=== PATIENT | male | born 1945 | race Caucasian/White ===

== ENCOUNTER 2019-01-11 11:35 | Day surgery (SDC) | payer MEDICARE, OTHER, SELFPAY ==
[2019-01-11 12:18] VITALS: BMI 25.1
[2019-01-11 12:43] VITALS: BP 135/73; PULSE 60; RESP 16; TEMP 36.6; O2SAT 98
[2019-01-11 12:50] VITALS: PULSE 63
[2019-01-11 13:57] VITALS: TEMP 36.6; O2SAT 98
--- NOTE | 2019-05-03 12:04 | HMH.LOOP ---
[facility] Loop Recorder Date: 01/11/19 Time: 10:00 Procedure Performed:: Implantation of loop recorder Indication:: Dizziness Bradycardia Technique:: Patient was brought to the cardiac Rn Maternity as an outpatient. After informed consent obtained, 1% lidocaine was used to anesthetize the area just left of the sternal border at the third and fourth costal space. Using the supplied scalpel, an incision was made and then using the preloaded apparatus, the loop recorder was implanted just beneath the skin. After the loop recorder was in place and adequate sensing noted, pressure dressing applied and the patient was discharged home. He tolerated procedure without complications. Impression:: Successful loop recorder implanted. Serial Number:: [id number] Plan:: Routine postop care
--- NOTE | 2019-05-03 12:09 | P.PCN_ITS ---
[facility] Loop Recorder Date: 01/11/19 Time: 10:00 Procedure Performed:: Implantation of loop recorder Indication:: Dizziness Bradycardia Technique:: Patient was brought to the cardiac Lead Generation Specialist as an outpatient. After informed consent obtained, 1% lidocaine was used to anesthetize the area just left of the sternal border at the third and fourth costal space. Using the supplied scalpel, an incision was made and then using the preloaded apparatus, the loop recorder was implanted just beneath the skin. After the loop recorder was in place and adequate sensing noted, pressure dressing applied and the patient was discharged home. He tolerated procedure without complications. Impression:: Successful loop recorder implanted. Serial Number:: [id number] Plan:: Routine postop care
== END 2019-01-11 14:01 | disposition home or self-care (01) ==
LOC: CATHLAB 11:37
PROVIDERS: PCP Dermatology; Visit Provider Internal Medicine
DX: R00.1 Bradycardia, unspecified (principal); R42 Dizziness and giddiness; R06.09 Other forms of dyspnea; I11.9 Hypertensive heart disease without heart failure; I25.10 Atherosclerotic heart disease of native coronary artery without angina pectoris; I65.23 Occlusion and stenosis of bilateral carotid arteries; G47.33 Obstructive sleep apnea (adult) (pediatric); E78.2 Mixed hyperlipidemia; N28.9 Disorder of kidney and ureter, unspecified; E03.9 Hypothyroidism, unspecified; Z88.8 Allergy status to other drugs, medicaments and biological substances; Z88.2 Allergy status to sulfonamides; Z79.82 Long term (current) use of aspirin; Z79.02 Long term (current) use of antithrombotics/antiplatelets; Z79.891 Long term (current) use of opiate analgesic; Z79.899 Other long term (current) drug therapy; Z86.711 Personal history of pulmonary embolism; Z96.643 Presence of artificial hip joint, bilateral; Z95.5 Presence of coronary angioplasty implant and graft
CPT/HCPCS: 33285

== ENCOUNTER → 2019-02-16 14:17 | Outpatient (CLI) | payer MEDICARE, OTHER, SELFPAY ==
--- NOTE | 2019-02-16 14:20 | US_ITS ---
US abd. aorta screening HISTORY: Screening for abdominal aortic aneurysm ITS.REASON: z ORDERING PHYSICIAN: Arturo Cain MD PATIENT AGE: 73 years Comparison: None FINDINGS: Plaque is present within the abdomen aorta. There is mild ectasia of the mid abdominal aorta at 2.8 cm. The proximal common iliacs are unremarkable. IMPRESSION: Mild dilatation of the mid abdominal aorta at 2.8 cm
== END ==
PROVIDERS: PCP Family Medicine; Visit Provider Internal Medicine
DX: Z82.49 Family history of ischemic heart disease and other diseases of the circulatory system (principal); Z13.6 Encounter for screening for cardiovascular disorders
CPT/HCPCS: 76705

== ENCOUNTER → 2020-07-04 09:22 | Outpatient (CLI) | payer MEDICARE, OTHER, SELFPAY ==
--- NOTE | 2020-07-04 09:22 | MR_ITS ---
PROCEDURE: MR ANGIO HEAD WO CON CLINICAL INDICATION: cva PT STATES HE BLACKS OUT SYMPTOMS X 2 MONTHS. NO OTHER SYMPTOMS. NOTHING PRIOR. > COMPARISON: No exams were available for comparison TECHNIQUE: Routine multiplanar multi echo sequences are performed without gadolinium enhancement. FINDINGS: The vertebral basilar system has an unremarkable appearance. There is a persistent area protrusion involving the suprasellar portion of the ICA bilaterally. This is best delineated on the MIP images [id number] and may only be due to infundibulum I from anterior meningeal branch or posterior communicating branch. However, despite multiple maneuvers and different imaging planes cannot completely confirm this. Cannot exclude the possibility of small ICA aneurysms. Suggest CT a for further evaluation. No other significant anomalies are evident. No evidence of AVM or major intracranial occlusive process. Single-shot MRV shows no evidence of sagittal sinus thrombosis. IMPRESSION: Infundibulum/overlapping vessels versus small ICA aneurysms both right and left aspect of the suprasellar portion of the ICA just before the bifurcation. Suggest CT angiogram for more thorough evaluation. Otherwise negative Dictated by: Jonatan Snyder MD 07/05/2020 14:27 Jonatan Snyder MD in [place] 07/05/2020 14:27
--- NOTE | 2020-07-04 09:22 | MR_ITS ---
PROCEDURE: MR HEAD/BRAIN WO CON CLINICAL INDICATION: cva PT STATES HE BLACKS OUT SYMPTOMS X 2 MONTHS. NO OTHER SYMPTOMS. NOTHING PRIOR. COMPARISON: No exams were available for comparison TECHNIQUE: Routine multiplanar multi echo sequences are performed without gadolinium enhancement. FINDINGS: No midline shift, mass effect, intracranial hemorrhage, or hydrocephalus is evident. There are few patch that T2 white matter hyperintensities.. There is mild diffuse cerebral atrophy which is most prominent in the frontal regions. The lateral ventricles are slightly prominent felt to be a ex vacuo in nature.. Atrophic changes are present involving the corpus callosum. The pituitary and optic chiasm and craniocervical junction are unremarkable. There is also mild vermian atrophy. The cerebellopontine angles have an unremarkable appearance. No mastoid effusion or sinus air-fluid level. IMPRESSION: 1. No acute intracranial findings. 2. Diffuse cerebral atrophy most prominent in the frontal regions. Mild vermian atrophy. Dictated by: Jonatan Snyder MD 07/05/2020 14:07 Jonatan Snyder MD in [facility] 07/05/2020 14:07
--- NOTE | 2020-07-04 09:22 | MR_ITS ---
PROCEDURE: MR ANGIO NECK WO CON CLINICAL INDICATION: cva PT STATES HE BLACKS OUT SYMPTOMS X 2 MONTHS. NO OTHER SYMPTOMS. NOTHING PRIOR. COMPARISON: No exams were available for comparison TECHNIQUE: The [id number] images with multi slab reformats without contrast FINDINGS: The cervical portion carotids have an unremarkable appearance. No significant stenosis, occlusion, or dissection is evident. The cervical portion of vertebrals also have an unremarkable appearance. The left vertebral is dominant. IMPRESSION: Unremarkable MRA of the neck Dictated by: Jonatan Snyder MD 07/05/2020 14:16 Jonatan Snyder MD in [place] 07/05/2020 14:16
--- NOTE | 2020-07-04 09:39 | XR_ITS ---
PROCEDURE: XR CHEST AP CLINICAL HISTORY: CHECK PLACEMENT OF LOOP RECORDER COMPARISON: No exams were available for comparison FINDINGS: There is mild cardiomegaly without failure. Coronary artery calcification and/or stent noted on the left. There is a loop recorder device present in the left parasternal region between the 4th and 5th rib anteriorly within satisfactory position according to manufactures recommendation for MRI. The lungs are clear without infiltrates, suspicious nodules, or pleural effusions. There are old fractures of the left 5th 6 7th and 8th ribs. IMPRESSION: Cardiomegaly with loop recorder device present as described above Dictated by: Jonatan Snyder MD 07/04/2020 10:02 Jonatan Snyder MD in [place] 07/04/2020 10:02
== END ==
PROVIDERS: PCP Family Medicine; Visit Provider Specialist
DX: F11.90 Opioid use, unspecified, uncomplicated (principal); G47.33 Obstructive sleep apnea (adult) (pediatric); I25.10 Atherosclerotic heart disease of native coronary artery without angina pectoris; I63.9 Cerebral infarction, unspecified; M45.9 Ankylosing spondylitis of unspecified sites in spine; N18.9 Chronic kidney disease, unspecified
CPT/HCPCS: 70544; 70547; 70551; 71045

== ENCOUNTER → 2020-07-11 13:07 | Outpatient (CLI) | payer MEDICARE, OTHER, SELFPAY ==
[2020-07-11 14:13] LABS: Chloride 103 mmol/L (98-107); Sodium 139 mmol/L (136-145)
[2020-07-11 14:16] LABS: Blood Urea Nitrogen 17 mg/dl (9-20); Carbon Dioxide 31 mmol/L (22.0-30.0); Estimated Glomerular Filt Rate 83 ml/min (>60); GFR (African American) 100 ML/MIN (>60)
[2020-07-11 14:17] LABS: Calcium 9.6 mg/dl (8.4-10.2); Cholesterol 131 mg/dl (140-200); Glucose 111 mg/dl (74-100); HDL Cholesterol 33 mg/dl (40-60); Triglycerides 205 mg/dl (30-150); VLDL Cholesterol 41 mg/dL (0-40)
[2020-07-11 14:27] LABS: Direct LDL Cholesterol 69.03 mg/dL (100-129)
[2020-07-11 18:29] LABS: Erythrocyte Sedimentation Rate 17 mm/hr (0-20)
[2020-07-11 19:11] LABS: Hemoglobin A1C 4.9 % (4.0-6.0)
== END ==
PROVIDERS: Visit Provider Specialist
DX: I63.9 Cerebral infarction, unspecified (principal); I65.23 Occlusion and stenosis of bilateral carotid arteries; Z79.899 Other long term (current) drug therapy
CPT/HCPCS: 36415; 80048; 80061; 83036; 85651

== ENCOUNTER → 2020-07-18 13:25 | Outpatient (CLI) | payer MEDICARE, OTHER, SELFPAY ==
--- NOTE | 2020-07-18 13:25 | CT_ITS ---
Procedure: CT ANGIO HEAD CLINICAL HISTORY: eval for aneurysm Abnormal MRA a CVA, blackout symptoms COMPARISON: MR MR ANGIO HEAD WO JALIL from 07/04/2020 TECHNIQUE: IV Contrast: 100ml Optiray 350 Axial images obtained with sagittal and coronal reformats. All CT scans at the facility use one or more dose reduction, viz: automated exposure control, ma/kV adjustment per patient size (including targeted exams where dose is matched to indication, i.e. head), or iterative reconstruction technique. FINDINGS: There are atheromatous changes involving the cavernous portion of the ICA on both sides. Calcific plaque is present within the cavernous portion of the ICAs. On the left there is a an area of high-grade stenosis secondary to calcific plaque involving the supraclinoid portion of the left ICA proximal to the ICA bifurcation by proximally 8 mm. This area of stenosis is approximately seventy.. There is an area of protrusion of the bifurcation of the left ICA which represents an infundibulum of the anterior meningeal artery. A small shallow aneurysm is present just proximal to the infundibulum of the anterior BG artery on the left and just distal to the stenosis. This may be atheromatous in nature.. There is also an infundibulum of the right anterior meningeal artery. No obvious aneurysm is evident on the right. There is a dominant left vertebral artery No evidence of AVM. No enhancing lesions are evident. No evidence of venous thrombosis. IMPRESSION: 1. High-grade intracranial artery stenosis on the left involving the supraclinoid portion of the left ICA of approximately 70 percent with poststenotic dilatation. 2. A small shallow aneurysm is present just distal to the area of stenosis and just proximal to the infundibulum of the anterior meningeal artery. This is approximately 1 mm by 1 mm. Dictated by: Jonatan Snyder MD 07/18/2020 14:58 Jonatan Snyder MD in [place] 07/18/2020 14:58
== END ==
PROVIDERS: PCP Family Medicine; Visit Provider Specialist
DX: E78.5 Hyperlipidemia, unspecified (principal); I11.9 Hypertensive heart disease without heart failure; I63.9 Cerebral infarction, unspecified; R40.4 Transient alteration of awareness; R90.89 Other abnormal findings on diagnostic imaging of central nervous system
CPT/HCPCS: 70496; Q9967

== ENCOUNTER 2020-09-19 11:50 | Day surgery (SDC) | payer MEDICARE, OTHER, SELFPAY ==
[2020-09-19 11:51] VITALS: BMI 25.0
[2020-09-19 11:53] VITALS: BP 164/88; PULSE 60; RESP 16; TEMP 36.8; O2SAT 95
[2020-09-19 12:43] VITALS: BP 149/77; PULSE 59; RESP 20; TEMP 36.6; O2SAT 95
--- NOTE | 2020-09-19 12:48 | HMH.PROC ---
[facility] Procedure Note Procedure Note:: Patient was brought to the cardiac Alum Plant Operator as an outpatient for removal of ILR at end of life. After informed consent was obtained, patient was prepped and draped in a sterile fashion. After the area was prepped and draped, lidocaine was used to anesthetize the area over the loop recorder and a scalpel was used to dissect down to the loop recorder. Using forceps, the recorder was removed without complications. Steri-Strips and pressure bandage was applied. Patient tolerated procedure without complications.
== END 2020-09-19 12:47 | disposition home or self-care (01) ==
LOC: CATHLAB 11:51
PROVIDERS: PCP Family Medicine; Visit Provider Internal Medicine
DX: Z45.09 Encounter for adjustment and management of other cardiac device (principal); R42 Dizziness and giddiness; I25.10 Atherosclerotic heart disease of native coronary artery without angina pectoris; Z79.899 Other long term (current) drug therapy
CPT/HCPCS: 33286

== ENCOUNTER → 2021-05-23 13:51 | Outpatient (CLI) | payer MEDICARE, OTHER, SELFPAY ==
[2021-05-23 14:30] LABS: Basophils # 0.1 K/mm3 (0-0.2); Basophils % 0.8 % (0.1-2.0); Eosinophils # 0.2 K/mm3 (0.0-0.4); Eosinophils % 1.8 % (0.1-12.0); Hematocrit 43.7 % (42.0-52.0); Hemoglobin 14.5 g/dL (14.1-18.0); Lymphocytes # 1.4 K/mm3 (0.7-4.5); Lymphocytes % 14.1 % (10-50); Mean Corpuscular HGB Conc 33.2 g/dL (31.8-35.4); Mean Corpuscular Volume 99.3 fl (80-94); Mean Platelet Volume 8.9 fl (7.4-10.4); Monocytes # 0.7 K/mm3 (0.1-1.0); Neutrophils # 7.7 K/mm3 (1.8-7.8); Neutrophils % 76.3 % (37.0-80.0); Platelet Count 332 K/mm3 (142-424); Red Cell Distribution Width 13.7 % (11.5-17.5); White Blood Count 10.1 K/mm3 (4.8-10.8)
[2021-05-23 15:29] LABS: Anion Gap 16.1 mEq/L (5-15); Blood Urea Nitrogen 16 mg/dl (9-20); Carbon Dioxide 29 mmol/L (22.0-30.0); Chloride 103 mmol/L (98-107); Estimated Glomerular Filt Rate 94 ml/min (>60); GFR (African American) 114 ML/MIN (>60); Glucose 97 mg/dl (74-100); Potassium 5.1 mmoL/L (3.5-5.1); Sodium 143 mmol/L (136-145)
== END ==
PROVIDERS: Visit Provider Internal Medicine
DX: E78.2 Mixed hyperlipidemia (principal); G47.33 Obstructive sleep apnea (adult) (pediatric); I11.9 Hypertensive heart disease without heart failure; I25.10 Atherosclerotic heart disease of native coronary artery without angina pectoris; I65.23 Occlusion and stenosis of bilateral carotid arteries; R00.1 Bradycardia, unspecified; Z20.822 Contact with and (suspected) exposure to COVID-19
CPT/HCPCS: 36415; 80048; 85025; U0003

== ENCOUNTER 2021-05-24 11:25 | Observation (INO) | payer MEDICARE, OTHER, SELFPAY ==
[2021-05-24] VITALS (22 sets, daily range): BP systolic 106–193; BP diastolic 59–101; PULSE 45–66; RESP 13–22; TEMP 36.4–36.8; O2SAT 96–100; BMI 23.9; BMI 24.0
--- NOTE | 2021-05-24 | IR_ITS ---
APPROVED REPORT Patient Location: Outpatient Beauty Therapist: ADAM Yo RT (R) PROCEDURES Left heart catheterization Left ventriculogram Selective coronary angiogram INDICATION Known coronary artery disease, Progressive angina pectoris Informed consent was obtained prior to the procedure. COMPLICATIONS None Estimated Blood Loss: Less than 10 mls TECHNIQUE One percent lidocaine used to anesthetize the right anterior aspect of the wrist. The right radial artery was accessed via the Seldinger technique. A 6 Polish sheath was placed in the right radial artery. 2.5 mg of verapamil, 800 mcg of nitroglycerin, 1mg Lidocaine and 5000 U Heparin were given through the arterial sheath. The trap catheter was also used to perform left heart catheterization, left ventriculogram and selective coronary angiogram. At the end of the procedure the sheath was removed good hemostasis was achieved using Traclet band, patient was transferred to the postop holding area in stable condition. ANGIOGRAPHIC RESULTS The left main artery Normal The left anterior descending artery Has stents in the proximal through mid segment which are widely patent free of in-stent restenosis with excellent proximal distal transitioning. The remaining LAD is widely patent. There is a moderate-sized first diagonal artery which has a stent in its ostial proximal segment which has ostial eccentric 80 to 90% stenosis The circumflex artery Nondominant with mild 10% luminal irregularities The right coronary artery Large and dominant has proximal 20% with a mid vessel concentric 40% stenosis followed by additional 20 and 30% distal stenoses. The BROWN ventriculogram reveals Preserved at 55% The left ventricular end-diastolic pressure Elevated at 25 mmHg IMPRESSION Patent LAD as described above Severe stenosis in the first diagonal artery which is unlikely to be producing angina Moderate disease in the right coronary as described above Preserved ejection fraction Elevated LVEDP Unusually large cardiac silhouette PLAN 1. Recommend echocardiogram to determine if pericardial effusion is present 2. Medical management for coronary disease 3. Treatment of diastolic dysfunction 4. At this point I am strongly in favor of medical management. I believe the elevated LVEDP is etiology for patient's symptoms Electronically signed by : Arturo Cian MD 05/24/2021 10:01:39
--- NOTE | 2021-05-24 10:06 | CA_ITS ---
APPROVED REPORT EXAM: Comprehensive 2D, Doppler, and color-flow Echocardiogram Business Integration Manager: Sissy Lua CRT Ht: 5 ft 10 in Wt: 167lbs BSA: 1.93 BP: 106/65 mmHg Indications: Hypertension, HLD, AFib, pacer, PE, CAD. Aneurysn, palp, cp, Pt post cath, check for pleural effusion due to unusually large cardiac silhouette Tricuspid Valve TR P. Velocity 227.00 cm/s RAP Estimate 10.00 mmHg RVSP 30.50 mmHg Left Ventricle Limited transthoracic echocardiogram was performed, left atrium is mildly enlarged, left ventricle is normal size, mild concentric left ventricular hypertrophy, visually estimated ejection fraction 55% with no obvious regional wall motion abnormality. Diastolic parameters are inconclusive in the study. Right Ventricle Right atrium and right ventricle are normal size and contractility, there is intermittent buckling of the right ventricle free wall, raising the concerns for presence of early diastolic collapse. Aortic Valve Aortic valve is minimally thickened and fibrosed there is no aortic stenosis. Mitral Valve Mitral valve is grossly normal, there is trace mitral regurgitation. Tricuspid Valve Tricuspid valve grossly normal. Pulmonic Valve Pulmonic valve is poorly visualized. Great Vessels Aortic root is normal size. Inferior vena cava not well visualized. Pericardium Large sized circumferential pericardial effusion noted, the mitral inflow and tricuspid inflow velocity are low suggestive of low cardiac output state. Conclusion 1. Normal left ventricular size, preserved left ventricular systolic function, visually estimated ejection fraction 55% with no regional wall motion abnormality. 2. Large sized circumferential pericardial effusion with Doppler evidence of low cardiac output state, likely raised intrapericardial pressure. 3. Inferior vena cava is not well visualized. Electronically signed by : Jed Scott MD 05/24/2021 15:08:50
--- NOTE | 2021-05-24 11:28 | CT_ITS ---
PROCEDURE: CT ANGIO CHEST CLINCIAL INDICATION: r/o aortic dissection Chest pain COMPARISON: No exams were available for comparison TECHNIQUE: IV Contrast: 70ML Isovue 370 Axial images obtained with sagittal and coronal reformats. All CT scans at the facility use one or more dose reduction, viz: automated exposure control, ma/kV adjustment per patient size (including targeted exams where dose is matched to indication, i.e. head), or iterative reconstruction technique. FINDINGS: HEART AND MEDIASTINAL STRUCTURES: No evidence of aortic aneurysm or dissection. No evidence of pulmonary embolus. There is a large pericardial effusion which measures 3.5 cm in thickness. Coronary artery calcifications and/or stents noted. Calcific plaque is present within the aorta without evidence of significant stenosis. LUNGS AND PLEURAL SPACES: There are mild atelectatic changes in the lung bases. No lobar consolidation or collapse. No pleural effusion. No evidence of pneumothorax. BONY STRUCTURES: There are degenerative changes in the thoracic spine. There is mild wedge compression changes T6 age indeterminate. UPPER ABDOMEN: Unremarkable. ADDITIONAL FINDINGS: No other significant abnormalities. IMPRESSION: 1. No evidence of aortic aneurysm, dissection, or pulmonary embolus. 2. Large pericardial effusion. 3. Mild wedging of T6 age indeterminate. No retropulsion. Dictated by: Jonatan Snyder MD 05/24/2021 12:10 Jonatan Snyder MD in [place] 05/24/2021 12:10
--- NOTE | 2021-05-24 11:35 | SUR.PHASEII ---
Pt to CT
--- NOTE | 2021-05-24 11:48 | SUR.PHASEII ---
Pt back from CT
--- NOTE | 2021-05-24 13:38 | P.CONPHA_ITS ---
[facility] Pharmacy VTE Monitoring - Patient Demographics Admission date: 05/24/21 Report Date: 05/24/21 Time: 13:38 Allergies/Adverse Reactions: Patient Allergies ciprofloxacin [From Cipro] Allergy (Verified 05/24/21 09:56) Sulfa (Sulfonamide Antibiotics) Allergy (Verified 05/24/21 09:56) Height: 1.78 m Weight: 76.204 kg - Prophylaxis VTE Prophylaxis Ordered?: Yes Types of VTE Prophylaxis: TEDS Knee High Location of Applied Device: Bilateral Lower Extremeties
--- NOTE | 2021-05-24 14:56 | HMH.CNCARD ---
History of Present Illness Consult date: 05/24/21 Requesting physician: Jayme Brand Consult reason: shortness of breath Chief complaint: SOA Additional Medical History:: 1. Coronary disease A. Stenting to the mid LAD, 09/2017 B. Pericardial effusion with borderline tamponade physiology, 05/24/2021, possibly related to ankylosing spondylitis C. [facility], 05/24/2021--ANGIOGRAPHIC RESULTS The left main artery Normal The left anterior descending artery Has stents in the proximal through mid segment which are widely patent free of in-stent restenosis with excellent proximal distal transitioning. The remaining LAD is widely patent. There is a moderate-sized first diagonal artery which has a stent in its ostial proximal segment which has ostial eccentric 80 to 90% stenosis The circumflex artery Nondominant with mild 10% luminal irregularities The right coronary artery Large and dominant has proximal 20% with a mid vessel concentric 40% stenosis followed by additional 20 and 30% distal stenoses. The BROWN ventriculogram reveals Preserved at 55% The left ventricular end-diastolic pressure Elevated at 25 mmHg IMPRESSION Patent LAD as described above Severe stenosis in the first diagonal artery which is unlikely to be producing angina Moderate disease in the right coronary as described above Preserved ejection fraction Elevated LVEDP Unusually large cardiac silhouette PLAN 1. Recommend echocardiogram to determine if pericardial effusion is present 2. Medical management for coronary disease 3. Treatment of diastolic dysfunction 4. At this point I am strongly in favor of medical management. I believe the elevated LVEDP is etiology for patient's symptoms Electronically signed by : Arturo Cain MD 05/24/2021 10:01:39 2. Ankylosing spondylitis 3. Hypertension 4. Hyperlipidemia 5. History of MIMA with transient CPAP use 6. Carotid artery stenosis, mild to moderate 7. Asymptomatic, chronic bradycardia on beta-maria t therapy for coronary artery disease 8. History of syncope likely secondary to CVA with left sided weakness, per neurology evaluation, 2019 A. Loop recorder showed no evidence of significant bradycardia during the episodes B. Neurology work-up, Dr. Moreira, 2019 included CTA angiogram of the intracranial circulation, brain MRI without contrast, brain MRA without contrast, EEG and neck MRA C. CT angiogram on 07/18/2020 shows evidence of calcified plaque within the cavernous portion of the ICAs on the left there is an area of high-grade stenotic secondary to calcified plaque involving the supraclinoid portion of the left ICA proximal to the bifurcation estimated area of stenotic lesions around 70% time. There is an area of protrusion of the bifurcation and likely represent an infundibulum of the anterior meningeal artery. There is a small shallow aneurysm distal to the area of stenosis just proximal to the infundibulum of the anterior meningeal artery. Estimated diameter 1 x 1 mm. D. Brain MRI WO 07/04/2020: After further discussion with Dr. Snyder (radiologist) today by phone, there is a small area on right parietal/temporal region consistent with small subacute CVA FINDINGS: No midline shift, mass effect, intracranial hemorrhage, or hydrocephalus is evident. There are few patch that T2 white matter hyperintensities.. There is mild diffuse cerebral atrophy which is most prominent in the frontal regions. The lateral ventricles are prominent felt to be a ex vacuo in nature.. Atrophic changes are present involving the corpus callosum. The pituitary and optic chiasm and craniocervical junction are unremarkable. There is also vermian atrophy. The cerebellopontine angles have an unremarkable appearance. No mastoid effusion or sinus air-fluid level. IMPRESSION: 1. No acute intracranial findings. 2. Diffuse cerebral atrophy most prominent in the frontal regions. Mild vermian atrophy. E. Brain MRA WO 07/04
--- NOTE | 2021-05-24 17:35 | HMH.HPDC ---
General - General Admission date:: 05/24/21 Discharge date: 05/24/21 *Admission Date: 05/24/21 *Chief complaint: Chest Pain *History of present illness: 75-year-old white male with history as noted above was seen in the cardiology office yesterday for recent onset of sudden back pain that resolved but was followed by shortness of breath that has persisted over the last week. Left heart catheterization was planned which was undertaken today revealing stable coronary artery disease. However due to large cardiac silhouette and echocardiogram was performed which showed evidence of pericardial effusion with borderline tamponade physiology. Phone consultation was obtained with CV surgeon (Dr. Jayme Thakur) who recommended trying either a steroid course or pericardiocentesis prior to attempting transferring to tertiary facility due to shortage of beds. Patient subsequently admitted for trial of steroids. Plan will be to proceed with right heart catheterization tomorrow to guide further treatment. [facility] History I have reviewed the patient's past medical history: Yes Medical History: Reports:: Aneurysm, Atherosclerotic Heart Disease, Atrial Fibrillation, Carotid Stenosis, Coronary Artery Disease, Hyperlipidemia, Hypertension, Internal Pacemaker, Kidney Stones, Palpitations, Pulmonary Embolism, Renal Disease, Renal Insufficiency Denies:: Cancer, Diabetes Mellitus Type 1, Diabetes Mellitus Type 2, Lung Disease, MRSA, Seizures *Have you ever received a pneumonia vaccine?: No *Have you received a flu vaccine this season?: No Other Medical History: Reports: Arthritis, Hypothyroidism, Thyroid Disease, Other Laterality Cases: Bilateral: Tonsillectomy, Total Hip Replacement Other Surgeries: Yes: Angioplasty, Cardiac Catheterization, Cholecystectomy, Colonoscopy, Coronary Stent, Pacemaker, Other (kidney stones) Amputation: No Fractures: No - *Social History Last grade of school completed: High school graduate Smoking Status: Never smoker Alcohol Intake: never Substance Use Type: denies use *Occupational Status:: retired Housing: house Household Members: spouse *Travel in the last 8 weeks: None Family Hx:: No significant family history Review of Systems - Review of Systems Review of systems:: pertinent systems reviewed and negative unless documented below - Constitutional Reports fatigue, Reports weakness - Eyes Denies blurry vision, Denies double vision - ENT Denies dizziness, Denies difficulty swallowing Exam Vital signs and Labs for Last 24 Hours: Temp Pulse Resp BP Pulse Ox 97.7 F 47 L 22 143/75 H 99 05/24/21 13:21 05/24/21 13:21 05/24/21 13:21 05/24/21 13:21 05/24/21 13:21 I & O for Last 24 hours: Intake & Output 05/21/21 05/22/21 05/23/21 05/24/21 23:59 23:59 23:59 23:59 Intake Total 240 / 240 Balance 240 / 240 Weight 168 lb - Constitutional no acute distress - *Routine HEENT Exam Head: Present: normocephalic Eye: Present: EOMI ENT: Present: mucous membranes moist - *Routine Neck Exam Present: trachea midline. Absent: tracheal deviation - *Routine Respiratory Exam Present: CTA bilaterally. Absent: accessory muscle use - *Routine Cardiovascular Exam Present: RRR - *Routine Abdominal Exam Present: soft, normoactive bowel sounds. Absent: tenderness, firm - *Routine Rectal Exam Rectal:: deferred - *Routine Genitalia Exam Genitalia:: deferred - *Routine Extremities Exam Present: full ROM, pulses intact. Absent: cyanosis, clubbing, edema, calf tenderness - *Routine Skin Exam Present: intact, dry, warm. Absent: cyanosis, erythema - *Routine Neurological Exam Present: alert, oriented X3. Absent: motor deficit - Routine Psychiatric Exam Present: normal affect, normal thought process Hospital Course Hospital Course: 75-year-old white male with history as noted above was seen in the cardiology office yesterday for recent onset of sudden back pain that res
== END 2021-05-24 20:00 ==
LOC: 2ND 11:26
PROVIDERS: Admitting Provider Emergency Medicine; PCP Internal Medicine; Visit Provider Emergency Medicine
DX: I25.118 Atherosclerotic heart disease of native coronary artery with other forms of angina pectoris (principal); Z95.5 Presence of coronary angioplasty implant and graft; I48.91 Unspecified atrial fibrillation; Z79.02 Long term (current) use of antithrombotics/antiplatelets; I10 Essential (primary) hypertension; Z88.8 Allergy status to other drugs, medicaments and biological substances; Z95.0 Presence of cardiac pacemaker; E03.9 Hypothyroidism, unspecified; I49.5 Sick sinus syndrome; Z79.899 Other long term (current) drug therapy; I31.3 Pericardial effusion (noninflammatory); I31.4 Cardiac tamponade; I65.29 Occlusion and stenosis of unspecified carotid artery; M45.9 Ankylosing spondylitis of unspecified sites in spine; I25.83 Coronary atherosclerosis due to lipid rich plaque
CPT/HCPCS: G0378; 71275; 93308; 93458; 99152; C1725; C1769; J1644; Q9967

== ENCOUNTER → 2021-08-15 07:41 | Outpatient (CLI) | payer MEDICARE, OTHER, SELFPAY ==
--- NOTE | 2021-08-15 | CA_ITS ---
APPROVED REPORT EXAM: Comprehensive 2D, Doppler, and color-flow Echocardiogram Diesel Maintenance Electrician: Sissy Lua CRT Ht: 5 ft 10 in Wt: 167lbs BSA: 1.93 BP: 000/00 mmHg Indications: Palpitations, CAD, Hyperlipidemia, Hypertension/HDD, aneurysm, afib, ANNETTE, Pacer, PE. pericardial window 06/19 2D Dimensions LVOT 1.92 cm (M/F) 1.5-2.5 LA Volume 38.80 mL LA Volume Index 20.10 mL/m2 (M/F) 16-34 M-Mode Dimensions RVDd 2.85 cm (0.9-2.6) LA Diam 3.49 cm (1.9-4.0) LVDd 4.48 cm (3.5-5.7) Ao Diam 4.13 cm (2.0-3.7) LVDs 2.95 cm (3.5-5.7) IVSd 1.70 cm (0.6-1.1) PWd 0.66 cm (0.6-1.1) EF (Teich) 63.30% FS 34.20% EDV (Teich) 91.50 mL TAPSE 1.14 (<1.7) ESV (Teich) 33.60 mL LV Diastology E Decel Time 213.00 (160-240 msec) E/A Ratio 0.90 MED E' 8.60 (< 7 cm/sec) MED A' 10.80 cm/s E'/MED E' Ratio 6.71 (>14) LAT E' 10.50 (<10 cm/sec) LAT A' 9.80 cm/s E/LAT E' Ratio 5.50 (>14) Aortic Valve AO Peak GR. 5.10 mmHg Mitral Valve MV E Max Flash. 58.00 (40-130 cm/s) MV A Velocity 64.00 (40-130 cm/s) E/A Ratio 0.90 MV Decel. Time 213.00 (160-240 ms) MV PHT 62.00 ms Pulmonary Valve PV Peak Velocity 81.00 (50-150 cm/s) Tricuspid Valve TR P. Velocity 228.00 cm/s RAP Estimate 10.00 mmHg RVSP 30.90 mmHg Left Ventricle Left atrium is mildly enlarged, left ventricle is normal size, visually estimated ejection fraction 55% with no regional wall motion abnormality, diastolic parameters are within normal range. Right Ventricle Right atrium and right ventricle are normal size and contractility, historically patient has a pacemaker the leads are not well visualized. Aortic Valve Aortic valve is thickened and calcified without Doppler evidence of aortic stenosis or aortic insufficiency. Mitral Valve Mitral valve leaflets are minimally thickened, there is trace mitral regurgitation. Tricuspid Valve Tricuspid valve grossly normal, there is trace tricuspid regurgitation. Pulmonic Valve Pulmonic valve is poorly visualized. Great Vessels Aortic root is normal size. Inferior vena cava is normal size with normal inspiratory collapse. Pericardium 4 no significant pericardial effusion noted. Conclusion 1. Normal left ventricular size, preserved left ventricular systolic function, visually estimated ejection fraction 55% with no regional wall motion abnormality, diastolic parameters are within normal range. 2. Trace mitral and tricuspid regurgitation. 3. No significant pericardial effusion noted. 4. Inferior vena cava is normal size with normal inspiratory collapse. Electronically signed by : Jed Scott MD 08/16/2021 06:12:13
== END ==
PROVIDERS: PCP Family Medicine; Visit Provider Internal Medicine
DX: R06.09 Other forms of dyspnea (principal); I25.10 Atherosclerotic heart disease of native coronary artery without angina pectoris
CPT/HCPCS: 93306

== ENCOUNTER 2022-01-16 11:46 | Day surgery (SDC) | payer MEDICARE, OTHER, SELFPAY ==
[2022-01-16] VITALS (13 sets, daily range): BP systolic 113–173; BP diastolic 64–93; PULSE 55–77; RESP 16–18; O2SAT 91–99; BMI 25.0; BMI 23.1
--- NOTE | 2022-01-16 | IR_ITS ---
APPROVED REPORT Patient Location: Outpatient Marketing And Development Coordinator: ADAM Jarquin RT (R) PROCEDURES Left heart catheterization Left ventriculogram Selective coronary angiogram FFR to the dominant right coronary Intravascular ultrasound of the right coronary INDICATION Coronary artery disease, Accelerated angina pectoris, Angiographically ambiguous coronary disease Informed consent was obtained prior to the procedure. COMPLICATIONS None Estimated Blood Loss: Less than 10 ML TECHNIQUE One percent lidocaine was used to anesthetize the right groin. The right femoral artery was accessed via the Seldinger technique. A 4-Irish sheath was placed in the right femoral artery. The JL-4 and JR-4 catheter was also used to perform left heart catheterization left ventriculogram and selective coronary angiogram. At the end the diagnostic angiogram therapeutic heparin was administered and the 4 Irish sheath was exchanged for a 6 Irish sheath. A JR4 guide catheter was placed in the right coronary artery followed by a Choice PT extra-support wire. There was significant difficulty in advancing the nevus FFR catheter beyond the proximal right coronary artery. The FFR index immediately dropped to 0.81. Adenosine was still infused and the FFR index dropped to 0.73. Adenosine was infused and the guide catheter was advanced followed by a 3 mm x 33 mm Xience drug-eluting stent deployed at 20 keila. Of interest immediately after this stent was deployed the balloon could not be advanced suggesting stent was not fully deployed. A 3.5 x 12 mm noncompliant balloon was attempted to be advanced through the stent however there was significant difficulty and there required deep seating of the guide catheter with pushing the catheter against the left wall of the aorta to provide additional support. Eventually 3.5 balloon was deployed up and down the stent at 20 keila. An additional 3.5 x 12 mm stent was then placed proximal to the stent and extending into the ostium and then deployed at 20 keila. This balloon was then advanced and there was still difficulty making around the band suggesting the stent was not fully deployed. At this point an additional 3.5 x 12 mm Xience stent was deployed distal to the first stent along the mid right coronary artery after calcification was identified and deployed at 20 keila. The balloon was brought back to 22 keila from the mid portion of the right coronary artery all the way back to the ostium. Intravascular ultrasound probe was then advanced to make sure the stent was fully deployed. This demonstrated good apposition with good deployment of the stent. There was mild to moderate distal disease beyond the stent however the MLA was 5.3mm???. The wire was pulled back followed by 800 mcg of intracoronary nitroglycerin which demonstrated wide patency of the distal right coronary artery. After achieving excellent angiographic results the apparatus was removed the groin was reprepped closure changed sheath was removed good hemostasis was achieved using Perclose device patient was transferred to the postop holding area in stable condition ANGIOGRAPHIC RESULTS The left main artery Normal The left anterior descending artery Has a stent in the proximal through mid segment which is widely patent with minimal in-stent restenosis and excellent proximal distal transitioning. The remaining LAD is widely patent. A moderate-sized first diagonal artery has an ostial 70 to 80% ostial stenosis The circumflex artery Is a nondominant vessel widely patent with mild atheromatous plaque nothing greater than 10 to 20% The right coronary artery Is a dominant vessel and has proximal 40 to 60% hazy stenosis. Distally ther
--- NOTE | 2022-01-16 11:54 | CA_ITS ---
APPROVED REPORT EXAM: Comprehensive 2D, Doppler, and color-flow Echocardiogram Account Associate: Sissy Lua CRT Ht: 5 ft 10 in Wt: 172lbs BSA: 1.96 BP: 131/68 mmHg Indications: Chest Pain, Atrial Fibrillation, CAD, Hyperlipidemia, Hypertension/HDD, stents, pericardial window 06/19 2D Dimensions LVOT 1.94 cm (M/F) 1.5-2.5 LA Volume 41.50 mL LA Volume Index 21.20 mL/m2 (M/F) 16-34 M-Mode Dimensions RVDd 3.12 cm (0.9-2.6) LA Diam 3.40 cm (1.9-4.0) LVDd 5.33 cm (3.5-5.7) Ao Diam 4.36 cm (2.0-3.7) LVDs 3.44 cm (3.5-5.7) IVSd 0.96 cm (0.6-1.1) PWd 0.64 cm (0.6-1.1) EF (Teich) 64.40% FS 35.50% EDV (Teich) 137.10 mL ESV (Teich) 48.80 mL LV Diastology E Decel Time 153.00 (160-240 msec) E/A Ratio 1.11 MED E' 9.30 (< 7 cm/sec) MED A' 8.30 cm/s E'/MED E' Ratio 7.98 (>14) LAT E' 9.70 (<10 cm/sec) LAT A' 8.30 cm/s E/LAT E' Ratio 7.65 (>14) Aortic Valve AO Peak GR. 7.70 mmHg Mitral Valve MV E Max Flash. 74.00 (40-130 cm/s) MV A Velocity 67.00 (40-130 cm/s) E/A Ratio 1.11 MV Decel. Time 153.00 (160-240 ms) MV PHT 45.00 ms Pulmonary Valve PV Peak Velocity 106.00 (50-150 cm/s) Tricuspid Valve TR P. Velocity 296.00 cm/s RAP Estimate 10.00 mmHg RVSP 45.00 mmHg Left Ventricle Left atrium is mildly enlarged, left ventricle is normal size, mild concentric left ventricle hypertrophy, estimated ejection fraction 55% with no regional wall motion abnormality, grade 1 diastolic dysfunction seen without tissue Doppler evidence of raise left atrial pressure. Right Ventricle Right atrium and right ventricle are mildly enlarged with normal contractility. Aortic Valve Aortic valve is minimally thickened and fibrosed there is no aortic stenosis or aortic insufficiency. Mitral Valve Mitral valve grossly normal, there is trace mitral regurgitation. Tricuspid Valve Tricuspid grossly normal, there is trace tricuspid regurgitation, calculated right ventricular systolic pressure 35 mmHg. Pulmonic Valve Pulmonic valve is poorly visualized. Great Vessels Aortic root is normal size. Inferior vena cava is poorly visualized. Pericardium No significant pericardial effusion noted. Conclusion 1. Mild biatrial enlargement, normal left ventricular size, mild concentric left ventricular hypertrophy, estimated ejection fraction 55% with no regional wall motion abnormality, grade 1 diastolic dysfunction seen without tissue Doppler evidence of raise left atrial pressure. 2. Trace mitral and tricuspid regurgitation. 3. No significant pericardial effusion. 4. Inferior vena cava is poorly visualized. Electronically signed by : Jed Scott MD 01/16/2022 19:16:14
[2022-01-16 14:42] LABS: CATHL Activated Clotting Time > 400 SEC (74-125)
--- NOTE | 2022-01-16 15:23 | HMH.PHACLD ---
Guerreroalfonzo Warner has received discharge medication counseling on the following medications: ASPIRIN PLAVIX BISOPROLOL ATORVASTATIN LISINOPRIL PATIENT IS CURRENTLY TAKING ALL OF THESE MEDICATIONS. PATIENT HAD NO QUESTIONS AT THIS TIME. -ELLIS CASTILLO, KASEYD
== END 2022-01-16 16:52 | disposition home or self-care (01) ==
LOC: CATHLAB 11:50
PROVIDERS: PCP Family Medicine; Visit Provider Internal Medicine
DX: I25.118 Atherosclerotic heart disease of native coronary artery with other forms of angina pectoris (principal); Z79.899 Other long term (current) drug therapy; I65.23 Occlusion and stenosis of bilateral carotid arteries; I48.91 Unspecified atrial fibrillation; I11.0 Hypertensive heart disease with heart failure; E78.5 Hyperlipidemia, unspecified; Z95.5 Presence of coronary angioplasty implant and graft
CPT/HCPCS: 85347; 92928; 92978; 93306; 93458; 93571; 99152; 99153; C1725; C1760; C1769; C1876; C1894; C9600; J0153; J1644; Q9966

== ENCOUNTER 2023-11-27 14:11 | Outpatient (CLI) | payer MEDICARE, OTHER, SELFPAY ==
--- NOTE | 2023-11-27 14:34 | XR_ITS ---
FINAL REPORT CLINICAL HISTORY: CAD, chest pain c/o midsternal cp FINDINGS: PA and lateral views of the chest are obtained. There is no prior exam for comparison. The cardiac and mediastinal silhouettes are within normal limits. The lungs are clear. There is no pleural effusion, pneumothorax, or acute osseous abnormality. IMPRESSION: No radiographic evidence of acute cardiac or pulmonary disease. Reviewed, Interpreted and Dictated by Kathleen Chong MD Transcribed by Jenny García Authenticated and [facility]
[2023-11-27 14:45] LABS: Basophils # 0.1 K/mm3 (0-0.2); Basophils % 1.3 % (0.1-2.0); Eosinophils # 0.2 K/mm3 (0.0-0.4); Eosinophils % 1.8 % (0.1-12.0); Hematocrit 44.4 % (42.0-52.0); Hemoglobin 14.7 g/dL (14.1-18.0); Lymphocytes # 1.5 K/mm3 (0.7-4.5); Lymphocytes % 17.1 % (10-50); Mean Corpuscular HGB Conc 33.2 g/dL (31.8-35.4); Mean Corpuscular Hemoglobin 34.6 pg (27.0-31.2); Mean Corpuscular Volume 104.3 fl (80-94); Mean Platelet Volume 9.4 fl (7.4-10.4); Monocytes # 0.6 K/mm3 (0.1-1.0); Monocytes % 7.4 % (1.7-9.3); Neutrophils # 6.1 K/mm3 (1.8-7.8); Neutrophils % 72.4 % (37.0-80.0); Platelet Count 217 K/mm3 (142-424); Red Blood Count 4.25 M/mm3 (4.60-6.20); Red Cell Distribution Width 13.4 % (11.5-17.5); White Blood Count 8.4 K/mm3 (4.8-10.8)
[2023-11-27 15:13] LABS: Alanine Aminotransferase 21 U/L (12-78); Alkaline Phosphatase 85 U/L (38-126); Aspartate Amino Transferase 26 U/L (17-59); Bilirubin,Indirect 0.5 mg/dL (0.0-0.9); Bilirubin,Total 0.5 mg/dl (0.2-1.3); Bilirubin,Unconjugated 0.6 mg/dL (0.0-1.1); Blood Urea Nitrogen 16 mg/dl (9-20); Calcium 9.6 mg/dl (8.4-10.2); Carbon Dioxide 31 mmol/L (22.0-30.0); Chloride 108 mmol/L (98-107); Chol/HDL Ratio 4.9 (1-3.5); Cholesterol 158 mg/dl (140-200); Estimated Glomerular Filt Rate 72 ml/min (>60); GFR (African American) 88 ML/MIN (>60); Glucose 96 mg/dl (74-100); HDL Cholesterol 32 mg/dl (40-60); Magnesium 1.9 mg/dl (1.6-2.3); Sodium 143 mmol/L (136-145); Total Protein,Serum 6.5 g/dl (6.3-8.2); Triglycerides 163 mg/dl (30-150); VLDL Cholesterol 33 mg/dL (0-40)
[2023-11-27 15:23] LABS: Direct LDL Cholesterol 92.75 mg/dL (100-129)
[2023-11-27 15:28] LABS: Free T4 (Free Thyroxine) 0.84 ng/dl (0.78-2.19)
[2023-11-27 15:37] LABS: Troponin I < 0.01 ng/ml (0.00-0.034)
[2023-11-27 15:44] LABS: Thyroid Stimulating Hormone 2.57 uIU/mL (0.465-4.68)
== END 2023-11-27 23:59 ==
PROVIDERS: PCP Family Medicine; Visit Provider Internal Medicine
DX: E03.9 Hypothyroidism, unspecified (principal); I25.10 Atherosclerotic heart disease of native coronary artery without angina pectoris; E78.5 Hyperlipidemia, unspecified; I11.9 Hypertensive heart disease without heart failure; R07.9 Chest pain, unspecified; Z95.5 Presence of coronary angioplasty implant and graft; Z79.899 Other long term (current) drug therapy
CPT/HCPCS: 36415; 71046; 80048; 80061; 80076; 83735; 84439; 84443; 84484; 85025

== ENCOUNTER 2023-12-05 09:07 | Day surgery (SDC) | payer MEDICARE, OTHER, SELFPAY ==
[2023-12-05] VITALS (12 sets, daily range): BP systolic 107–194; BP diastolic 54–85; PULSE 42–63; RESP 16–20; TEMP 36.6; O2SAT 94–99; BMI 25.4
--- NOTE | 2023-12-05 07:04 | IR_ITS ---
APPROVED REPORT Patient Location: Outpatient Hide And Skin Colerer: ADAM Tamez RT (R) PROCEDURES Left heart catheterization Left ventriculogram Selective coronary angiogram INDICATION Known multivessel coronary disease, Accelerated angina pectoris Informed consent was obtained prior to the procedure. COMPLICATIONS NONE Estimated Blood Loss: LESS THAN 10 ML TECHNIQUE One percent lidocaine used to anesthetize the right anterior aspect of the wrist. The right radial artery was accessed via the Seldinger technique. A 6 Taiwanese sheath was placed in the right radial artery. 2.5 mg of Verapamil, 800 mcg of nitroglycerin, 1mg Lidocaine and 5000 U Heparin were given through the arterial sheath. The papa catheter was also used to perform left heart catheterization, left ventriculogram and selective coronary angiogram. At the end of the procedure the sheath was removed good hemostasis was achieved using Traclet band, patient was transferred to the postop holding area in stable condition. ANGIOGRAPHIC RESULTS The left main artery Normal The left anterior descending artery Has stents in the proximal through mid segment which are widely patent with minimal in-stent restenosis and excellent proximal distal transitioning. The LAD is a large vessel which wraps the apex. There is minimal mid and distal disease The circumflex artery Small nondominant with proximal 20 to 30% nonflow limiting stenoses The right coronary artery Large and dominant with a stent in the ostial proximal segment which is widely patent free of in-stent restenosis. The stent extends into the midportion which is also widely patent. There are diffuse 20 and 30% stenoses The BROWN ventriculogram reveals Normal 65% The left ventricular end-diastolic pressure 10 to 15 mmHg IMPRESSION Widely patent coronary stents as described above Normal ejection fraction Normal left ventricular end-diastolic pressure PLAN 1. Continue medical management Electronically signed by : Arturo Cain MD 12/05/2023 11:37:35
[2023-12-05 09:47] LABS: Basophils # 0.1 K/mm3 (0-0.2); Basophils % 0.6 % (0.1-2.0); Eosinophils # 0.2 K/mm3 (0.0-0.4); Eosinophils % 1.9 % (0.1-12.0); Hematocrit 49.3 % (42.0-52.0); Lymphocytes # 1.5 K/mm3 (0.7-4.5); Lymphocytes % 19.5 % (10-50); Mean Corpuscular HGB Conc 32.4 g/dL (31.8-35.4); Mean Corpuscular Hemoglobin 33.8 pg (27.0-31.2); Mean Corpuscular Volume 104.3 fl (80-94); Monocytes # 0.5 K/mm3 (0.1-1.0); Monocytes % 6.7 % (1.7-9.3); Neutrophils # 5.4 K/mm3 (1.8-7.8); Neutrophils % 71.3 % (37.0-80.0); Platelet Count 213 K/mm3 (142-424); Red Blood Count 4.72 M/mm3 (4.60-6.20); Red Cell Distribution Width 13.7 % (11.5-17.5); White Blood Count 7.6 K/mm3 (4.8-10.8)
[2023-12-05 10:06] LABS: Anion Gap 13.4 mEq/L (5-15); Blood Urea Nitrogen 17 mg/dl (9-20); Calcium 9.4 mg/dl (8.4-10.2); Carbon Dioxide 28 mmol/L (22.0-30.0); Chloride 106 mmol/L (98-107); Creatinine Clearance Estimated 72 mL/min (50-200); Estimated Glomerular Filt Rate 72 ml/min (>60); GFR (African American) 88 ML/MIN (>60); Glucose 115 mg/dl (74-100); Potassium 4.4 mmoL/L (3.5-5.1); Sodium 143 mmol/L (136-145)
--- NOTE | 2023-12-05 10:08 | CA_ITS ---
APPROVED REPORT EXAM: Comprehensive 2D, Doppler, and color-flow Echocardiogram Maintenance Mechanic Engine: Jenna Davies RDCS Ht: 5 ft 11 in Wt: 182lbs BSA: 2.03 BP: 150/60 mmHg Indications: AF,CP,H/O AMALIA WINDOW,CAD M-Mode Dimensions RVDd 3.70 cm (0.9-2.6) LA Diam 3.59 cm (1.9-4.0) LVDd 4.63 cm (3.5-5.7) LVDs 3.18 cm (3.5-5.7) IVSd 1.01 cm (0.6-1.1) PWd 1.05 cm (0.6-1.1) EF (Teich) 59.20% FS 31.30% EDV (Teich) 98.80 mL ESV (Teich) 40.30 mL LV Diastology E Decel Time 157 (160-240 msec) E/A Ratio 1.5 Mitral Valve MV E Max Flash. 79.0 (40-130 cm/s) MV A Velocity 52.0 (40-130 cm/s) E/A Ratio 1.53 MV PHT 46.0 ms Tricuspid Valve TR P. Velocity 271.00 cm/s RAP Estimate 10.00 mmHg RVSP 39.30 mmHg Left Ventricle The left ventricle is normal size. The left ventricular systolic function is normal. The left ventricular ejection fraction is within the normal range. Proximal septal thickening is noted. There is normal LV segmental wall motion. The left ventricular diastolic function is normal. LVEF is 55%. Right Ventricle The right ventricle is mildly dilated. Right ventricle is mildly hypokinetic. Atria The left atrium size is normal. The right atrium size is normal. There is no color Doppler assessment of the interatrial septum. Aortic Valve The aortic valve is mildly thickened. There is no aortic valvular stenosis. No aortic regurgitation is present. Mitral Valve The mitral valve leaflets are mildly thickened. No evidence of mitral valve stenosis. There is no mitral valve regurgitation noted. Tricuspid Valve The tricuspid valve leaflets are thin and pliable. Mild tricuspid regurgitation. RVSP is 25-30 mmHg. Pulmonic Valve The pulmonary valve is normal in structure. Trace pulmonic regurgitation. Great Vessels The aortic root is normal in size. The ascending aorta is normal in size. IVC is normal in size and collapses >50% with inspiration. Pericardium There is no pericardial effusion. Other Information Study Quality: Fair Conclusion Normal LV systolic function. Mild RV dilation with mild reduction in RV function. Mild TR. RVSP 25-30 mmHg. Electronically signed by : Vandana Sebastian MD 12/08/2023 22:35:16
[2023-12-05] MEDS: HEPARIN 1,000 UNITS/500ML NS (CATH LAB) 3000 UNIT IV (11:15)
[2023-12-05] MEDS: 0.9 % SODIUM CHLORIDE 500 ML 25 ML IV (11:15)
[2023-12-05] MEDS: VERAPAMIL 2.5MG/ML 2ML VIAL 2.5 MG IV (11:15)
[2023-12-05] MEDS: NITROGLYCERIN 800MCG/8ML SYR (CATH LAB) 800 MCG IA (11:15)
[2023-12-05] MEDS: diphenhydrAMINE 50MG/ML VIAL 50 MG IV (11:15)
[2023-12-05] MEDS: LIDOCAINE 1% 10ML MDV 20 ML IJ (11:15)
[2023-12-05] MEDS: FENTANYL 100MCG/2ML VIAL 50 MCG IV (11:35)
[2023-12-05] MEDS: HEPARIN 1,000 UNITS/ML 10ML VIAL (CATH LAB) 10000 UNIT IV (11:35)
[2023-12-05] MEDS: MIDAZOLAM HCL 1MG/1ML 5ML VIAL 1 MG IV (11:35)
[2023-12-05] MEDS: IOPAMIDOL-370 (76%);100ML BOTTLE 50 ML IV (12:00)
== END 2023-12-05 14:41 | disposition home or self-care (01) ==
LOC: CATHLAB 09:09
PROVIDERS: PCP Family Medicine; Visit Provider Internal Medicine
DX: I25.118 Atherosclerotic heart disease of native coronary artery with other forms of angina pectoris (principal); E78.5 Hyperlipidemia, unspecified; Z95.5 Presence of coronary angioplasty implant and graft; E03.9 Hypothyroidism, unspecified; I65.23 Occlusion and stenosis of bilateral carotid arteries; R07.89 Other chest pain; N18.2 Chronic kidney disease, stage 2 (mild); Z79.899 Other long term (current) drug therapy; I12.9 Hypertensive chronic kidney disease with stage 1 through stage 4 chronic kidney disease, or unspecified chronic kidney disease; E11.22 Type 2 diabetes mellitus with diabetic chronic kidney disease
CPT/HCPCS: 80048; 85025; 93306; 93458; 99152; C1725; C1769; J1644; Q9967

== ENCOUNTER 2025-05-26 11:50 | Inpatient (IN) | payer MEDICARE, OTHER, SELFPAY ==
[2025-05-26] VITALS (17 sets, daily range): BP systolic 110–197; BP diastolic 58–78; PULSE 37–64; RESP 11–21; TEMP 36.5–37; O2SAT 97–100; BMI 25.1
--- NOTE | 2025-05-26 11:50 | ECG_ITS ---
APPROVED REPORT Exam: Resting ECG HR:37 bpm ECG Measurements Heart Rate 37 AXES QRSd 135 QRS -22 QT 497 T 28 QTc 410 Conclusion 3rd Degree AV Block Electronically signed by : Ramana Alejandro, 05/26/2025 17:05:01
--- NOTE | 2025-05-26 12:01 | PC.NURSE ---
Cardiology office called, stated that they will send Dr. Cain a message and have him call us.
--- NOTE | 2025-05-26 12:02 | XR_ITS ---
FINAL REPORT CLINICAL HISTORY: Chest pain, sob COMPARISON: 11/27/2023 FINDINGS: A portable view of the chest was obtained. Cardiac and mediastinal silhouettes are within normal limits. The lungs are clear. There is no pleural effusion or pneumothorax. IMPRESSION: No acute process on this portable exam. Reviewed, Interpreted and Dictated by Kathleen Chong MD Transcribed by Tanya Connolly Authenticated and [facility]
--- OUTSIDE RECORDS SUMMARY | 2025-05-26 12:02 | XMS_ITS | Referral Summary ---
Author Organization [facility] Address [address] [place], [place] [address] [address] Care Team Providers Care Curing Finisher Name Role Phone Unavailable Primary Care Provider Unavailabl e Social History Tobacco Use Types Packs/Day Years Used Date Smoking Tobacco: Never Assessed Sex and Gender Information Value Date Recorded Sex Assigned at Not on file Legal Sex Male 8:24 PM EDT Gender Identity Not on file Sexual Orientation Not on file Plan of Treatment Not on file
--- OUTSIDE RECORDS SUMMARY | 2025-05-26 12:03 | XMS_ITS | Clinical Summary ---
Author Organization [facility] Address [address] [place] [address] Care Team Providers Care Patrol Sergeant Sheriff[employer] Name Role Phone Alcon Hare MD Primary Care Provider [phone] Allergies Active Allergy Reactions Criticality Noted Date Comments Ciprofloxacin Rash Low 08/21/2020 Sulfa Antibiotics Rash Low 08/21/2020 Medications clopidogrel (PLAVIX) 75 MG tablet clopidogrel 75 mg tablet TAKE 1 TABLET BY MOUTH ONCE DAILY Active bisoprolol (ZEBeta) 5 MG tablet TAKE 0.5 (ONE HALF) TABLET BY MOUTH ONCE DAILY 0 Active atorvastatin (LIPITOR) 40 MG tablet Take 1 tablet by mouth Daily. Active DULoxetine (CYMBALTA) 30 MG capsule Take 1 capsule by mouth Daily. Active aspirin 81 MG EC tablet Take 1 tablet by mouth Daily. Active pantoprazole (PROTONIX) 40 MG EC tablet Take 1 tablet by mouth Daily. Active colchicine 0.6 MG tablet Take 1 tablet by mouth Daily. 30 tablet 05/30/2021 11:54 AM EDT 1 Active lisinopril (PRINIVIL,ZESTR IL) 20 MG tablet Patient takes only if BP gets to low Active tamsulosin (FLOMAX) 0.4 MG capsule 24 hr capsule tamsulosin 0.4 mg capsule TAKE 1 CAPSULE BY MOUTH ONCE DAILY Active traZODone (DESYREL) 50 MG tablet Take 1-2 tablets by mouth every night at bedtime. 1 Active Active Problems Problem Noted Date Diagnosed Date CAD (coronary artery disease) 05/25/2021 Acute pericardial effusion 05/24/2021 Overview (05/24/2021): Added automatically from request for surgery [id number] Pericardial effusion 05/24/2021 Essential hypertension 05/24/2021 Hyperlipidemia 05/24/2021 Cerebral aneurysm 05/24/2021 Carotid stenosis, left 05/24/2021 Ankylosing spondylitis 05/24/2021 History of kidney stones 05/24/2021 Family History Medical History Relation Name Comments Aneurysm Father Cancer Mother Relation Name Status Comments Father Mother Social History Tobacco Use Types Packs/Day Years Used Date Smoking Tobacco: Never Smokeless Tobacco: Never Tobacco Cessation:Counseling Given: Not Answered Alcohol Use Standard Drinks/Week Comments Never 0 (1 standard drink = 0.6 oz pur e alcohol) AUDIT-C Answer Date Recorded Q1: How often do you have a drink containing alc ohol? Never 08/21/2020 Average Number of Drinks Not on file 020 Frequency of Binge Drinking Not on file 07/31 Abuse Screen Answer Date Recorded Unsafe at Home or Work/School Not on file Feels Threatened by Someone? Not on file 05/2023 Does Anyone Keep You from Co ntacting Others or Doint Things Outside the Home? Not on file 07/07/2023 Physical Sign of Abuse Present Not on file 1 Housing Stability Answer Date Recorded Current Living Arrangements Not on file 05/2023 Potentially Unsafe Housing Conditions Not on daisy e 07/07/2023 Family and Community Support Answer Mike e Recorded Help with Day-to-Day Activities Not on file 07/07/2023 Lonely or Isolated Not on file 07/07/2023 Employment Answer Date Recorded Do you want help finding or keeping work or a selena b? Not on file 07/07/2023 Disabilities Answer Date Recorded Concentrating, Remembering, or Making Decisions Difficulty Not on file 07/07/2023 Doing Errands Independently Difficulty Not on fi le 07/07/2023 Education Answer Date Recorded Help with school or training? Not on file Preferred Language Not on file 07/07/2023 Sex and Gender Information Value Date Recorded Sex Assigned at Not on file Legal Sex Male 11:26 AM EDT Gender Identity Not on file Sexual Orientation Not on file Occupation Industry Job Start Date Job End Date [employer] in [place]/ [employer] Not on file Not on file Not on file Last Filed Vital Signs Vital Sign Reading Time Taken Comments Blood Pressure 122/60 03/03/2024 12:51 PM EDT Pulse 74 03/03/2024 12:51 PM EDT Temperature 36.6 C (97.8 F) 03/03/2024 12:51 PM EDT Respiratory Rate 16 05/30/2021 6:49 AM EDT Oxygen Saturation 99% 03/03/2024 12:51 PM EDT Inhaled Oxygen Concentration - - Weight 84 kg (185 lb 1.6 oz) 03/03/2024 12:51 PM EDT Height 162.6 cm (5' 4 ) 03/03/2024 12:51 PM EDT Body Mass Index 31.77 03/03/2024 12:51 PM EDT Plan of Treatment Health Maintenance Due Date Last Done Comments LIPID PANEL 1945 Pneumococcal Vaccine 50+ (1 of 1 - PCV) 1996 ANNUAL WELLNESS VISIT 08/21/2020 HEPATITIS C SCREENING 08/21/2020 RSV Vaccine - Adults (1 - 1- dose 75+ series) 2021 ZOSTER VACCINE (3 of 3) 12/09/2023 10/14/2023, 09/14 COVID-19 Vaccine (2 - 2023-2 5 season) 2024 10/03/2021 INFLUENZA VACCINE 06/29/2025 07/04/2023, , 07/18/2021, Additional history exists TDAP/TD VACCINES (2 - Td or Tdap) 03/01/2033 023 COLONOSCOPY Discontinued 03/31/2019 COLORECTAL CANCER SCREENING Discontinued COLOGUARD Discontinued COLON CANCER SCREENING 5 YEA R SIGMOIDOSCOPY Discontinued CT COLONOGRAPHY Discontinued FECAL OCCULT BLOOD TEST Discontinued FIT Testing (1 year) Discontinued Insurance MEDICARE A & B [facility] [place] [address] Advance Directives * CPR (Attempt to Resuscitate) (Latest Code Status on File) Date Activated Date Inactivated Comments 05/25/2021 7:38 AM 05/30/2021 2:48 PM Question Answer Comments Code Status (Patient has no pulse and is not breathing): CPR (Attempt to Resuscitate) Medical Interventions (Patie nt has pulse or is breathing): Full Level Of Support Discussed With: Patient Care Teams Patrol Sergeant Sheriff'[employer] Office Relationship Specialty Start Date End Date Alcon Hare MD [address] [place] [address] DR TIRADO, [place] [id number] PCP - General Family Medicine 08/17/20
--- OUTSIDE RECORDS SUMMARY | 2025-05-26 12:03 | XMS_ITS | Clinical Summary ---
Author Organization [facility] Address [facility] [place] [address] Care Team Providers Care Um Rn Name Role Phone Unavailable Primary Care Provider Unavailabl e Social History Tobacco Use Types Packs/Day Years Used Date Smoking Tobacco: Never Assessed Sex and Gender Information Value Date Recorded Sex Assigned at Not on file Legal Sex Male 8:24 PM EDT Gender Identity Not on file Sexual Orientation Not on file Plan of Treatment Health Maintenance Due Date Last Done Comments Hepatitis C Screening 1945 DTap,Tdap,and Td (1 - Tdap) 1957 Pneumococcal 50+ (1 of 1 - PCV) 1996 Shingrix (#1) 1996 RSV Vaccine (60+ or ) (1 - 1-dose 75+ series) 2021 Influenza Vaccine (#1) 2025 HPV Aged Out No longer eligi ble based on patient's age to complete this topic Meningococcal conjugate brittany nt 4 (MCV4) Aged Out No longer eligible b ased on patient's age to complete this topic RSV Immunization (<20 months) Aged Out No longer eligible based on patient's age to complete this topic
[2025-05-26 12:07] LABS: Hematocrit 43.7 % (42.0-52.0); Hemoglobin 15.4 g/dL (14.1-18.0); Immature Granulocytes % 1.4 %; Mean Corpuscular HGB Conc 35.2 g/dL (31.8-35.4); Mean Corpuscular Hemoglobin 34.4 pg (27.0-31.2); Mean Corpuscular Volume 97.5 fl (80-94); Nucleated Red Blood Cells % 0 %; Platelet Count 238 K/mm3 (142-424); Red Blood Count 4.48 M/mm3 (4.60-6.20); Red Cell Distribution Width-SD 46.3 fL; White Blood Count 11.0 K/mm3 (4.8-10.8)
[2025-05-26 12:09] LABS: Albumin Level 4.5 g/dl (3.5-5.0); Chloride 107 mmol/L (98-107); Sodium 142 mmol/L (136-145)
[2025-05-26 12:10] LABS: Potassium 4.7 mmoL/L (3.5-5.1)
[2025-05-26 12:12] LABS: Alanine Aminotransferase 31 U/L (12-78); Alkaline Phosphatase 75 U/L (38-126); Anion Gap 12.7 mEq/L (5-15); Aspartate Amino Transferase 40 U/L (17-59); Bilirubin,Total 0.8 mg/dl (0.2-1.3); Blood Urea Nitrogen 18 mg/dl (9-20); Carbon Dioxide 27 mmol/L (22.0-30.0); Creatinine Clearance Estimated 70 mL/min (50-200); Creatinine,Serum 1.00 mg/dl (0.66-1.25); Estimated Glomerular Filt Rate 72 ml/min (>60); GFR (African American) 87 ML/MIN (>60)
[2025-05-26 12:13] LABS: Albumin/Globulin Ratio 1.6 (1.1-1.8); Calcium 9.6 mg/dl (8.4-10.2); Globulin 2.9 g/dL (1.3-3.2); Glucose 124 mg/dl (74-100); Total Protein,Serum 7.4 g/dl (6.3-8.2)
[2025-05-26 12:18] LABS: VBG HCO3 25.7 mmol/L (23-30); VBG PCO2 58.5 mmol/L (35-51); VBG PH 7.26 mmol/L (7.31-7.41); VBG PO2 33.8 mmol/L (28-40)
[2025-05-26 12:19] LABS: Lactate Venous 2.4 mmol/L (0.4-2.0)
[2025-05-26 12:22] LABS: NT Pro Brain Natriuretic Pep. 826 pg/mL (0-450)
[2025-05-26 12:26] LABS: Troponin I < 0.01 ng/ml (0.00-0.034)
--- NOTE | 2025-05-26 12:28 | CA_ITS ---
APPROVED REPORT EXAM: Comprehensive 2D, Doppler, and color-flow Echocardiogram Wheel [employer] Supervisor: Carrie Chavarria, STEPHAN, RVS Ht: 5 ft 11 in Wt: 180lbs BSA: 2.02 BP: 158/61 mmHg Rhythm: 3rd heart block Indications: Pre cardiac pacemaker placement, CAD, Hx-pericardial window, CP, SOB, Fatigue 2D Dimensions IVSd 1.23 cm M: 0.6-1.2 LVEF (Visual) 45.00 % PWd 1.16 cm M: 0.6 - 1.2 LVDd 5.28 cm M: 4.2 - 5.9 LVDs 4.09 cm M: 2.5 - 4.0 Left Atrium 3.63 cm M: 3.0 - 4.0 M-Mode Dimensions RVDd 3.68 cm (0.9-2.6) LA Diam 4.04 cm (1.9-4.0) LVDd 5.15 cm (3.5-5.7) LVDs 3.53 cm (3.5-5.7) IVSd 1.18 cm (0.6-1.1) PWd 1.32 cm (0.6-1.1) EF (Teich) 59.00% EPSs 0.54 cm FS 31.50% EDV (Teich) 126.60 mL TAPSE 0.85 (<1.7) ESV (Teich) 51.90 mL LV Diastology E Decel Time 183 (160-240 msec) E/A Ratio 1.33 MED A' 11.40 cm/s LAT A' 8.40 cm/s Aortic Valve AoV Peak Flash. 127.0 (50-130 cm/s) AO Peak GR. 6.40 mmHg AO Mean GR. 3.20 (<5 mmHg) AO VTI 27.2 (18-25 cm) NABOR (VTI) 2.35 (2.5-4.5 cm2) Mitral Valve MV A Velocity 56.0 (40-130 cm/s) E/A Ratio 1.33 Tricuspid Valve TR P. Velocity 232.00 cm/s RAP Estimate 10.00 mmHg RVSP 31.50 mmHg Left Ventricle The left ventricle is normal size. Left ventricular systolic function is mildly reduced. There is increased left ventricular wall thickness. There is mild global hypokinesis present. The left ventricular diastolic function is indeterminate. LVEF is 45% Right Ventricle The right ventricle is mildly dilated. The right ventricular systolic function is low-normal. Atria The left atrium size is normal. The right atrium size is normal. There is no color Doppler evidence of interatrial shunt. Aortic Valve The aortic valve is mildly thickened. There is no hemodynamically significant aortic valvular stenosis. No aortic regurgitation is present. Mitral Valve The mitral valve is normal in structure. No evidence of mitral valve stenosis. Trace mitral regurgitation is present. Tricuspid Valve The tricuspid valve leaflets are thin and pliable. Mild tricuspid regurgitation. RVSP is 30-35 mmHg. Pulmonic Valve The pulmonary valve is grossly normal in structure. Trace pulmonic valve regurgitation is present. Great Vessels The aortic root is normal in size. IVC is normal in size and collapses >50% with inspiration. Pericardium There is no pericardial effusion. Other Information Study Quality: Technically Difficult Conclusion Technically difficult study. Mildly reduced LV systolic function (LVEF 45%). Mild RV dilation with low-normal RV function. Mild TR. RVSP 30-35 mmHg. Electronically signed by : Vandana Sebastian MD 05/26/2025 18:47:14
--- NOTE | 2025-05-26 12:31 | EXP.CARD.CON ---
History of Present Illness History of Present Illness Consult date: 05/26/25 Requesting physician: Long Malave Chief complaint: weakness History of present illness: Guerrero Warner is a 79-year-old white male with a past medical history of coronary artery disease status post medical management heart cath in November 2023 and previous stenting, hypertension, history of pericardial effusion status post pericardial window who presented to cardiology clinic window with complaints of chest pain, generalized weakness and shortness of breath. Patient reports he was on his way to [place] when symptoms developed. Patient was advised to go to the ER from the cardiology clinic. Upon presentation to ER EKG shows a high degree AV block at a rate of 37 which transitioned into a normal sinus rhythm at 59 bpm. Labs as follow: WBC 11, hemoglobin 15.4, sodium 142, potassium 4.7, creatinine 1, troponin negative and proBNP 826. Chest x-ray and echocardiogram are pending. Patient will be admitted for near syncope and high degree AV block with pacemaker placement tomorrow. On exam patient is resting comfortably in bed, reports he is feeling much better and denies chest pain or shortness of breath. [facility] Disclaimer: The information contained in this section may have been updated after the patient was seen, as this information can be updated by other users. Medical History Carotid artery stenosis Coronary artery disease Other chest pain Other forms of angina pectoris Angina, class III Obstructive sleep apnea Hypertensive heart disease Hyperlipemia Chronic kidney disease, stage 2 (mild) Surgical History S/P pericardial window creation Stented coronary artery Social History Smoking Status: Never smoker alcohol intake: never substance use type: denies use current occupational status: retired Travel in the last 8 weeks?: Inside the [place] household members: spouse housing: house current occupational exposures/hazards: No caffeine: No Have you lived/traveled outside US in past 30 days?: No Contact w/someone who lives/traveled outside US past 30 days?: No Exposure to someone with infectious disease in past 14 days?: No Do you have a fever (greater than 100.4 F or 38 C)?: No Have you tested positive for COVID-19?: No Exposed to someone with COVID-19 in past 14 days?: No Do you have a sore throat?: No Do you have a cough?: No Do you have any weakness?: No Do you have any diarrhea?: No Are you experiencing any unusual bleeding?: No Do you have any muscle aches/pain?: Yes Do you have any abdominal pain?: No Are you experiencing loss of taste or smell?: No Review of Systems Review of Systems Review of systems:: pertinent systems reviewed and negative unless documented below Constitutional Constitutional: Reports system reviewed and no additional complaints, except as documented *Cardiovascular Cardiovascular: Reports chest pain and Reports dyspnea Comments: Generalized weakness *Respiratory Respiratory: Reports system reviewed and no additional complaints, except as documented and Reports dyspnea *Gastrointestinal Gastrointestinal: Reports system reviewed and no additional complaints, except as documented *Neurologic Neurologic: Reports system reviewed and no additional complaints, except as documented and Denies confusion Psychiatric Psychiatric: Reports system reviewed and no additional complaints, except as documented and Denies confusion Exam Data for Last 24 hours Vital signs and Labs for Last 24 Hours: Temp Pulse Resp BP Pulse Ox O2 Del Method 97.7 F 59 L 14 158/61 H 100 Room Air 05/26/25 11:54 05/26/25 11:54 05/26/25 11:54 05/26/25 11:54 05/26/25 11:54 05/26/25 11:54 Laboratory Results - last 24 hr 05/26/25 11:56: VBG pH 7.26 L, VBG pCO2 58.5 H, VBG pO2 33.8, VBG HCO3 25.7, VBG Total CO2 27.5 H, VBG O2 Saturation 59.0, VBG Base Excess -1.3, VBG Lactic Acid 2.4 H, Sodium 142, Potassium 4.7, Chloride 107, Carbon Dioxide 27, Anion Gap 12.7, BUN 18, Creatinine 1.00, Estimated Creat Clear 70, Estimated GFR 72, Est GFR ( Amer) 87, Glucose 124 H, Calcium 9.6, Total Bilirubin 0.8, AST 40, ALT 31, Alkaline Phosphatase 75, Troponin I < 0.01, NT-Pro-B Natriuret Pep 826 H, Total Protein 7.4, Albumin 4.5, Globulin 2.9, Albumin/Globulin Ratio 1.6 I & O for Last 24 hours: Intake & Output 05/23/25 05/24/25 05/25/25 05/26/25 23:59 23:59 23:59 23:59 Weight 180 lb Constitutional Constitutional: no acute distress *Routine Respiratory Exam Respiratory: Present CTA bilaterally and symmetric chest movement *Routine Cardiovascular Exam Cardiovascular: Present RRR, Normal S1 and Normal S2 *Routine Abdominal Exam Abdominal: Present soft and normoactive bowel sounds; Absent tenderness *Routine Extremities Exam Extremities: Present full ROM and normal capillary refill; Absent edema *Routine Skin Exam Skin: Present intact, dry and warm Detailed Neck Exam: Thyroids Thyroid: Absent bruit Meds Home Medications and Allergies Home Medications ?Medication ?Instructions ?Recorded ?Confirmed ?Type aspirin 81 mg tablet,delayed 81 mg PO DAILY heart health 10/06/17 12/14/24 History release (Adult Low Dose Aspirin) pantoprazole 40 mg tablet,delayed 40 mg PO DAILY GERD 09/19/20 12/14/24 History release finasteride 5 mg tablet 5 mg PO DAILY 10/23/22 12/14/24 History trazodone 50 mg tablet 50 mg PO HS 04/22/23 12/14/24 History atorvastatin 20 mg tablet 20 mg PO DAILY Cholesterol #90 tabs 10/21/23 12/14/24 Rx bisoprolol fumarate 5 mg tablet 2.5 mg PO DAILY PRN Hypertension 04/20/24 12/14/24 History lisinopril 40 mg tablet 40 mg PO DAILY PRN 04/20/24 12/14/24 History methadone 10 mg tablet 20 mg PO TID PRN WITHDRAWAL 04/20/24 12/14/24 History spironolactone 25 mg tablet 25 mg PO DAILY #90 tabs 04/20/24 12/14/24 Rx fexofenadine 180 mg tablet 180 mg PO DAILY 08/16/24 12/14/24 History fluticasone propionate 50 1 spray intranasal BID 08/16/24 12/14/24 History mcg/actuation nasal spray,suspension tamsulosin 0.4 mg capsule 0.4 mg PO BID 08/16/24 12/14/24 History clopidogrel 75 mg tablet 75 mg PO DAILY [employer] 03/28/25 Rx #90 tabs New Prescriptions to Start Prescriptions: Allergies Allergy/AdvReac Type Severity Reaction Status Date / Time [facility] Allergy Rash Verified 05/26/25 11:59 Sulfa (Sulfonamide Allergy Rash Verified 05/26/25 11:59 Antibiotics) Assessment and Plan *Assessment and plan (1) Dizziness: Status: Acute Category: Medical Code(s): R42 - Dizziness and giddiness (2) Near syncope: Status: Acute Category: Medical Code(s): R55 - Syncope and collapse (3) Coronary artery disease: Status: Chronic Qualifiers: Associated angina: without angina Coronary Disease-Associated Artery/Lesion type: [place] artery [place] vs. transplanted heart: [place] heart Qualified Code(s): I25.10 - Atherosclerotic heart disease of [place] coronary artery without angina pectoris Category: Medical Code(s): I25.10 - Atherosclerotic heart disease of [place] coronary artery without angina pectoris Plan Near syncope Dizziness Generalized weakness High degree AV block Initial EKG shows high degree AV block rate of 37. Repeat shows normal sinus rhythm at a rate of 59 Echocardiogram is pending Hold AV blockers Plan for pacemaker placement tomorrow. Keep patient n.p.o. after midnight History of coronary artery disease Medical management heart cath 2023 Previous [facility] Troponin negative Can continue aspirin and statin CV summary 05/18/2025: Echo pending. Plan for pacemaker placement tomorrow. Please keep patient n.p.o. after midnight and hold AV blockers.
--- NOTE | 2025-05-26 12:32 | PC.NURSE ---
supervisor agency appointments contacted for bed.
--- NOTE | 2025-05-26 13:08 | PC.NURSE ---
Report called to [facility]el[facility] for room 264
--- NOTE | 2025-05-26 14:32 | HMH.PHAINT1 ---
Pharmacy Intervention Comments: HOME MEDICATION LIST VERIFIED USING LIST FROM OUTPATIENT PHARMACY AND PT INTERVIEW
--- NOTE | 2025-05-26 14:49 | PC.NURSE ---
Dr. Malave at bedside.
[2025-05-26 15:43] LABS: Troponin I < 0.01 ng/ml (0.00-0.034)
--- NOTE | 2025-05-26 15:48 | EXP.HP ---
History of Present Illness *Admission Date: 05/26/25 *Reason for visit:: Chest pain *History of present illness: Guerrero Warner is a 79-year-old male with a medical history significant for CAD with stents who presented with chest pain. He states has been having on and off chest pain for about 3 months, without radiation. Denies shortness of breath, fever/chills. Workup in the ED significant for EKG concerning for third-degree heart block, Dr. Cain was consulted who recommended admission and permanent pacemaker tomorrow. Heart rate initially 37, but improved to 50s. Other vital stable. On telemetry, patient is going in and out of third-degree heart block. CBC, CMP, CXR unremarkable. Given these findings ED provider consulted with me and I decided to admit patient for further evaluation and management. [facility] Disclaimer: The information contained in this section may have been updated after the patient was seen, as this information can be updated by other users. Medical History Carotid artery stenosis Coronary artery disease Other chest pain Other forms of angina pectoris Angina, class III Obstructive sleep apnea Hypertensive heart disease Hyperlipemia Chronic kidney disease, stage 2 (mild) Surgical History S/P pericardial window creation Stented coronary artery Social History (Updated 05/26/25 @ 13:43 by Tamia Resendez RN) Smoking Status: Never smoker alcohol intake: never substance use type: denies use current occupational status: retired Travel in the last 8 weeks?: Inside the [place] household members: spouse housing: house current occupational exposures/hazards: No caffeine: No Have you lived/traveled outside US in past 30 days?: No Contact w/someone who lives/traveled outside US past 30 days?: No Exposure to someone with infectious disease in past 14 days?: No Do you have a fever (greater than 100.4 F or 38 C)?: No Have you tested positive for COVID-19?: No Exposed to someone with COVID-19 in past 14 days?: No Do you have a sore throat?: No Do you have a cough?: No Do you have any weakness?: No Do you have any diarrhea?: No Are you experiencing any unusual bleeding?: No Do you have any muscle aches/pain?: Yes Do you have any abdominal pain?: No Are you experiencing loss of taste or smell?: No Other Medical History Have you received the Flu Vaccine for this season: Yes Have you received the Pneumonia Vaccine: No (uncertain) Review of Systems *Neurologic Neurologic: Reports system reviewed and no additional complaints, except as documented and Denies confusion Psychiatric Psychiatric: Denies confusion Meds Home Medications and Allergies Home Medications ?Medication ?Instructions ?Recorded ?Confirmed ?Type aspirin 81 mg tablet,delayed 81 mg PO DAILY heart health 10/06/17 05/26/25 History release (Adult Low Dose Aspirin) pantoprazole 40 mg tablet,delayed 40 mg PO DAILY GERD 09/19/20 05/26/25 History release finasteride 5 mg tablet 5 mg PO DAILY 10/23/22 05/26/25 History trazodone 50 mg tablet 50 - 150 mg PO HS 04/22/23 05/26/25 History atorvastatin 20 mg tablet 20 mg PO DAILY Cholesterol #90 tabs 10/21/23 05/26/25 Rx lisinopril 40 mg tablet 40 mg PO DAILY PRN Hypertension 04/20/24 05/26/25 History methadone 10 mg tablet 20 mg PO TID PRN WITHDRAWAL 04/20/24 05/26/25 History spironolactone 25 mg tablet 25 mg PO DAILY #90 tabs 04/20/24 05/26/25 Rx fluticasone propionate 50 1 spray intranasal BID 08/16/24 05/26/25 History mcg/actuation nasal spray,suspension tamsulosin 0.4 mg capsule 0.4 mg PO BID 08/16/24 05/26/25 History clopidogrel 75 mg tablet 75 mg PO DAILY 05/26/25 05/26/25 History New Prescriptions to Start Prescriptions: Allergies Allergy/AdvReac Type Severity Reaction Status Date / Time ciprofloxacin (From Cipro) Allergy Rash Verified 05/26/25 11:59 Sulfa (Sulfonamide Allergy Rash Verified 05/26/25 11:59 Antibiotics) Exam Data for Last 24 hours Vital signs and Labs for Last 24 Hours: Temp Pulse Resp BP Pulse Ox O2 Del Method 97.7 F 56 L 18 155/78 H 98 Room Air 05/26/25 13:34 05/26/25 13:47 05/26/25 13:47 05/26/25 13:34 05/26/25 13:47 05/26/25 13:47 Laboratory Results - last 24 hr 05/26/25 11:56: WBC 11.0 H, RBC 4.48 L, Hgb 15.4, Hct 43.7, MCV 97.5 H, MCH 34.4 H, MCHC 35.2, RDW 13.0, Plt Count 238, MPV 10.9 H, Neut % (Auto) 73.2, Lymph % (Auto) 15.7, [place] % (Auto) 7.6, Eos % (Auto) 1.6, Baso % (Auto) 0.5, Neut # (Auto) 8.0 H, Lymph # (Auto) 1.7, [place] # (Auto) 0.8, Eos # (Auto) 0.2, Baso # (Auto) 0.1, VBG pH 7.26 L, VBG pCO2 58.5 H, VBG pO2 33.8, VBG HCO3 25.7, VBG Total CO2 27.5 H, VBG O2 Saturation 59.0, VBG Base Excess -1.3, VBG Lactic Acid 2.4 H, Sodium 142, Potassium 4.7, Chloride 107, Carbon Dioxide 27, Anion Gap 12.7, BUN 18, Creatinine 1.00, Estimated Creat Clear 70, Estimated GFR 72, Est GFR ( Amer) 87, Glucose 124 H, Calcium 9.6, Total Bilirubin 0.8, AST 40, ALT 31, Alkaline Phosphatase 75, Troponin I < 0.01, NT-Pro-B Natriuret Pep 826 H, Total Protein 7.4, Albumin 4.5, Globulin 2.9, Albumin/Globulin Ratio 1.6 05/26/25 15:12: Troponin I < 0.01 I & O for Last 24 hours: Intake & Output 05/23/25 05/24/25 05/25/25 05/26/25 23:59 23:59 23:59 23:59 Weight 81.647 kg Constitutional Constitutional: no acute distress *Routine HEENT Exam Head: Present normocephalic Eye: Present EOMI and PERRL ENT: Present mucous membranes moist *Routine Neck Exam Neck: Present supple; Absent lymphadenopathy *Routine Respiratory Exam Respiratory: Present CTA bilaterally *Routine Cardiovascular Exam Cardiovascular: Present bradycardia *Routine Abdominal Exam Abdominal: Present soft and normoactive bowel sounds; Absent tenderness *Routine Rectal Exam Rectal:: deferred *Routine Genitalia Exam Genitalia:: deferred *Routine Extremities Exam Extremities: Absent cyanosis, clubbing or edema *Routine Skin Exam Skin: Present warm; Absent rash *Routine Neurological Exam Neurological: Present alert and oriented X3 Assessment and Plan *Assessment and plan (1) Third degree AV block: Status: Acute Category: Medical Code(s): I44.2 - Atrioventricular block, complete Plan Guerrero Warner is a 79-year-old male with a medical history significant for CAD with stents who presented with chest pain. He states has been having on and off chest pain for about 3 months, without radiation. Denies shortness of breath, fever/chills. Workup in the ED significant for EKG concerning for third-degree heart block, Dr. Cain was consulted who recommended admission and permanent pacemaker tomorrow. Heart rate initially 37, but improved to 50s. Other vital stable. On telemetry, patient is going in and out of third-degree heart block. CBC, CMP, CXR unremarkable. Given these findings ED provider consulted with me and I decided to admit patient for further evaluation and management. #Third-degree AV block #Chest pain #Presyncope ? Presented with chest pain, presyncope from cardiology clinic and found to have high degree AV block on initial EKG in the ED. Currently NSR. ? Intermittently going in and out of third-degree heart block. Troponins normal. Heart rate 58, other vital stable. Patient is not in acute distress. ? Cardiology consulted, planning for permanent pacemaker placement tomorrow. No plans for LHC as patient had a LHC in November 2023 recommended medical management. N.p.o. at midnight. ? Hold 3 estefanía blockers, continuous cardiac telemetry. ? Follow-up ECHO, TSH, free T4. #CAD with stents ? Continue home aspirin, Plavix, statin. #Hypertension ? Hold home antihypertensives in setting of third-degree heart block for possible hypotension. BP stable at this time. #GERD ? Continue home PPI. #BPH ? Continue home Flomax, finasteride. Full code DVT prophylaxis: Lovenox 40 mg
[2025-05-26 16:20] LABS: Reflex Lactic Add Lactic Reflex
--- NOTE | 2025-05-26 16:43 | HMH.EDCP ---
Discharge Plan Disposition Patient Disposition: Admitted Condition: Serious Clinical Impressions Clinical Impression: Third degree AV block Discharge ED Provider: Ramana Alejandro General Chief Complaint: Chest Pain Stated Complaint: chest pain Time Seen by Provider: 05/26/25 11:51 Mode of Arrival: Ambulatory Source of Information: Patient Description of Symptoms (Recalled from ER Triage Doc. by RN): He has been having pain in the left side of his chest for about 2 hours and states that he could not get his blood pressure when he tried to check it at home. History of Present Illness HPI narrative: This is a 79-year-old male patient, with past medical history of coronary artery disease status post multiple drug-eluting stents to the right coronary artery, who is presenting to the emergency department today for evaluation of chest pain. Patient was reportedly seen in the cardiology clinic this morning and began experiencing chest pain and shortness of breath. When they discovered he was experiencing the symptoms they directed him here for further evaluation. Patient tells me that he feels as if he is having hot flashes in addition to this chest pain. He does not describe it as particularly exertional in nature. Pain is not radiating at this time. He has not had any lower extremity erythema or edema. Related Data Home Medications ?Medication ?Instructions ?Recorded ?Confirmed aspirin 81 mg tablet,delayed 81 mg PO DAILY heart health 10/06/17 05/26/25 release (Adult Low Dose Aspirin) pantoprazole 40 mg tablet,delayed 40 mg PO DAILY GERD 09/19/20 05/26/25 release finasteride 5 mg tablet 5 mg PO DAILY 10/23/22 05/26/25 trazodone 50 mg tablet 50 - 150 mg PO HS 04/22/23 05/26/25 lisinopril 40 mg tablet 40 mg PO DAILY PRN Hypertension 04/20/24 05/26/25 methadone 10 mg tablet 20 mg PO TID PRN WITHDRAWAL 04/20/24 05/26/25 fluticasone propionate 50 1 spray intranasal BID 08/16/24 05/26/25 mcg/actuation nasal spray,suspension tamsulosin 0.4 mg capsule 0.4 mg PO BID 08/16/24 05/26/25 clopidogrel 75 mg tablet 75 mg PO DAILY 05/26/25 05/26/25 Previous Rx's ?Medication ?Instructions ?Recorded atorvastatin 20 mg tablet 20 mg PO DAILY Cholesterol #90 tabs 10/21/23 spironolactone 25 mg tablet 25 mg PO DAILY #90 tabs 04/20/24 Allergies Allergy/AdvReac Type Severity Reaction Status Date / Time ciprofloxacin (From Cipro) Allergy Rash Verified 05/26/25 11:59 Sulfa (Sulfonamide Allergy Rash Verified 05/26/25 11:59 Antibiotics) [facility] Disclaimer: The information contained in this section may have been updated after the patient was seen, as this information can be updated by other users. Medical History Carotid artery stenosis Coronary artery disease Other chest pain Other forms of angina pectoris Angina, class III Obstructive sleep apnea Hypertensive heart disease Hyperlipemia Chronic kidney disease, stage 2 (mild) Surgical History S/P pericardial window creation Stented coronary artery Social History (Updated 05/26/25 @ 13:43 by Tamia Resendez RN) Smoking Status: Never smoker alcohol intake: never substance use type: denies use current occupational status: retired Travel in the last 8 weeks?: Inside the [place] household members: spouse housing: house current occupational exposures/hazards: No caffeine: No Have you lived/traveled outside US in past 30 days?: No Contact w/someone who lives/traveled outside US past 30 days?: No Exposure to someone with infectious disease in past 14 days?: No Do you have a fever (greater than 100.4 F or 38 C)?: No Have you tested positive for COVID-19?: No Exposed to someone with COVID-19 in past 14 days?: No Do you have a sore throat?: No Do you have a cough?: No Do you have any weakness?: No Do you have any diarrhea?: No Are you experiencing any unusual bleeding?: No Do you have any muscle aches/pain?: Yes Do you have any abdominal pain?: No Are you experiencing loss of taste or smell?: No Other Medical History Have you received the Flu Vaccine for this season: Yes Have you received the Pneumonia Vaccine: No (uncertain) ROS Obtained: Yes Systems reviewed as appropriate & no additional complaints except as documented Physical Exam General General appearance: other (See MDM) Respiratory Respiratory exam: Present other (See MDM) Cardiovascular Cardiovascular exam: Present other (See MDM) Neurological Exam Neurological exam: Present other (See MDM) HEART Score HEART Score HEART Score assessment performed?: Yes History (anamnesis): Moderately suspicious ECG: Non-specific disturbance Age: >65 years Risk factors: 3 or more risk factors Troponin: </= normal limit HEART Score: 6 Critical Care Critical Care Time Critical Care Time: No Medical Decision Making Medical Records Medical records reviewed: Yes I reviewed the patient's medical records. Ayan Inquiry Pt receiving controlled substance: No Ayan was queried for this patient: No Vital Signs Vital Signs: 05/26/25 11:52 05/26/25 11:54 05/26/25 12:00 Temperature 97.7 F Temperature Source Oral Pulse Rate 37 L Pulse Rate [Right Brachial] 59 L Respiratory Rate 14 16 Blood Pressure Blood Pressure [Right Arm] 158/61 H Blood Pressure Mean Blood Pressure Mean [Right Arm] 93 Blood Pressure Source [Right Arm] Automatic Cuff Blood Pressure Position [Right Arm] Sitting 02 Sat by Pulse Oximetry 100 100 Oxygen Delivery Method Room Air 05/26/25 12:15 05/26/25 12:30 05/26/25 12:30 Temperature Temperature Source Pulse Rate 62 59 L Pulse Rate [Right Brachial] Respiratory Rate 21 11 L Blood Pressure 145/70 H Blood Pressure [Right Arm] Blood Pressure Mean 95 Blood Pressure Mean [Right Arm] Blood Pressure Source [Right Arm] Blood Pressure Position [Right Arm] 02 Sat by Pulse Oximetry 99 98 Oxygen Delivery Method 05/26/25 12:40 05/26/25 12:45 05/26/25 13:00 Temperature Temperature Source Pulse Rate 60 59 L Pulse Rate [Right Brachial] Respiratory Rate 16 16 Blood Pressure Blood Pressure [Right Arm] Blood Pressure Mean Blood Pressure Mean [Right Arm] Blood Pressure Source [Right Arm] Blood Pressure Position [Right Arm] 02 Sat by Pulse Oximetry 99 97 97 Oxygen Delivery Method Room Air 05/26/25 13:00 05/26/25 13:00 05/26/25 13:15 Temperature Temperature Source Pulse Rate 63 Pulse Rate [Right Brachial] Respiratory Rate 17 Blood Pressure 155/78 H Blood Pressure [Right Arm] Blood Pressure Mean 103 Blood Pressure Mean [Right Arm] Blood Pressure Source [Right Arm] Blood Pressure Position [Right Arm] 02 Sat by Pulse Oximetry 98 Oxygen Delivery Method Room Air 05/26/25 13:29 05/26/25 13:29 Temperature Temperature Source Pulse Rate 64 Pulse Rate [Right Brachial] Respiratory Rate 16 Blood Pressure 197/78 H Blood Pressure [Right Arm] Blood Pressure Mean 124 Blood Pressure Mean [Right Arm] Blood Pressure Source [Right Arm] Blood Pressure Position [Right Arm] 02 Sat by Pulse Oximetry 98 Oxygen Delivery Method Lab Data Labs: Lab Results 05/26/25 11:56: WBC 11.0 H, RBC 4.48 L, Hgb 15.4, Hct 43.7, MCV 97.5 H, MCH 34.4 H, MCHC 35.2, RDW 13.0, Plt Count 238, MPV 10.9 H, Neut % (Auto) 73.2, Lymph % (Auto) 15.7, [place] % (Auto) 7.6, Eos % (Auto) 1.6, Baso % (Auto) 0.5, Neut # (Auto) 8.0 H, Lymph # (Auto) 1.7, [place] # (Auto) 0.8, Eos # (Auto) 0.2, Baso # (Auto) 0.1, VBG pH 7.26 L, VBG pCO2 58.5 H, VBG pO2 33.8, VBG HCO3 25.7, VBG Total CO2 27.5 H, VBG O2 Saturation 59.0, VBG Base Excess -1.3, VBG Lactic Acid 2.4 H, Sodium 142, Potassium 4.7, Chloride 107, Carbon Dioxide 27, Anion Gap 12.7, BUN 18, Creatinine 1.00, Estimated Creat Clear 70, Estimated GFR 72, Est GFR ( Amer) 87, Glucose 124 H, Calcium 9.6, Total Bilirubin 0.8, AST 40, ALT 31, Alkaline Phosphatase 75, Troponin I < 0.01, NT-Pro-B Natriuret Pep 826 H, Total Protein 7.4, Albumin 4.5, Globulin 2.9, Albumin/Globulin Ratio 1.6 05/26/25 11:56 05/26/25 11:56 Response Orders (Tests/Meds): ED MEDICATIONS Generic Name Dose Route Start Last Admin Trade Name Freq PRN Reason Stop Dose Admin Acetaminophen 650 mg 05/26/25 15:49 Acetaminophen 325mg Tab PO 06/25/25 15:48 Q4HP PRN Fever or Mild Pain (1-3) Enoxaparin Sodium 40 mg 05/27/25 09:00 Enoxaparin 40mg/0.4ml Syringe SUBCUT 06/26/25 08:59 DAILY GERI Ondansetron HCl 4 mg 05/26/25 15:49 Ondansetron 4mg/2ml Vial IV 06/25/25 15:48 Q6HP PRN Nausea ORDERS Category Date Time Status Cardiology Consult [Consult to Cardiology] [CONS] Cons 05/26/25 12:26 Active Routine CXR --portable [XR chest portable] Stat Exams 05/26/25 12:02 Completed BNP [NT Pro Brain Natriuretic Pep.] Stat Lab 05/26/25 11:56 Completed CBC w/Auto Diff [Complete Blood Count Auto Diff] Stat Lab 05/26/25 11:56 Completed CMP [Comprehensive Metabolic Panel] Stat Lab 05/26/25 11:56 Completed Troponin I Q3H Lab 05/26/25 15:12 Completed Troponin I Q3H Lab 05/26/25 18:15 Ordered Troponin I Stat Lab 05/26/25 11:56 Completed VBG [Venous Blood Gas] Stat RT 05/26/25 11:56 Completed CA echo doppler complete Routine Y 05/26/25 12:28 Completed ECG Data Tracing #1: ECG Narrative: EKG personally interpreted by me demonstrates third-degree AV block with a rate of 37 bpm. Left axis. Mild widening of the QRS with a right bundle branch block morphology. Deep T wave inversions in leads V2. No ST elevation or depression MDM Narrative Medical Decision Narrative: In summary, this is a 79-year-old male patient who is presenting to the emergency department today for evaluation of chest pain and shortness of breath that onset today. He was ultimately directed here from the cardiology clinic. He tells me that he is experiencing what he describes to be consistent with a hot flash. Comorbidities include a past medical history of coronary artery disease status post multiple drug-eluting stents. On initial evaluation of the patient he was bradycardic but was normotensive. He was saturating well on room air and was neurologically intact. We did immediately perform an EKG on the patient given his reported symptoms of chest pain and I promptly identified that the patient had a third-degree heart block with a rate of 37 bpm. On examination otherwise his heart and lungs are clear to auscultation. His abdomen is soft and nontender. He is appropriately alert and oriented with a GCS of 15. Differential diagnosis included ACS/PR, high degree AV block, third-degree AV block, electrolyte derangement, acute kidney injury, heart failure as activation, among others. We did place the patient on the monitor and placed pads on his chest. He momentarily converted to normal sinus rhythm and remained hemodynamically stable from that point forward. Labs were personally interpreted by me and demonstrate no actionable abnormalities. I had an interactive discussion with the cardiology service who agreed to evaluate the patient in the emergency department. After our discussion of their evaluation they do feel that this patient will necessitate admission for pacemaker placement tomorrow morning as well as an echocardiogram today. I ultimately had an interactive discussion with the internal medicine service who agreed to evaluate the patient in the emergency department. After our discussion their evaluation they agreed to admit the patient to their service and accept primary responsibility of the patient moving forward.
--- NOTE | 2025-05-26 16:55 | PC.NURSE ---
pt new admit this shift from ED. pt alert and oriented. lung sounds cta. pt sinus dipti on cardiac cath rn. abdomen soft, nontender, bowel sounds active. pt voiding per urinal. pt up as tolerated with standby assist. at bedside. pt to be npo at midnight for pacemaker placement tomorrow. pt has been chest pain free since arriving to his room. pt instructed to call out if pain occurs. call light w/i reach.
[2025-05-26 17:42] LABS: Lactic Acid Follow Up (RFLX 1) 1.2 mmol/L (0.7-2.1)
[2025-05-26 19:31] LABS: Troponin I < 0.01 ng/ml (0.00-0.034)
[2025-05-26] MEDS: TAMSULOSIN 0.4MG CAPSULE 0.4 MG PO (21:18)
[2025-05-26] MEDS: TRAZODONE 50MG TABLET 50 MG PO (21:18)
[2025-05-27] VITALS (18 sets, daily range): BP systolic 116–153; BP diastolic 59–77; PULSE 52–112; RESP 14–24; TEMP 36.5–36.6; O2SAT 90–97; BMI 25.2
[2025-05-27 06:11] LABS: Hematocrit 37.8 % (42.0-52.0); Immature Granulocytes % 1.2 %; Mean Corpuscular HGB Conc 34.9 g/dL (31.8-35.4); Mean Corpuscular Hemoglobin 34.2 pg (27.0-31.2); Mean Corpuscular Volume 97.9 fl (80-94); Nucleated Red Blood Cells % 0 %; Platelet Count 179 K/mm3 (142-424); Red Blood Count 3.86 M/mm3 (4.60-6.20); Red Cell Distribution Width-SD 45.8 fL; White Blood Count 6.6 K/mm3 (4.8-10.8)
[2025-05-27 06:18] LABS: Hemoglobin 13.0 g/dL (14.1-18.0)
[2025-05-27 06:22] LABS: Albumin Level 3.5 g/dl (3.5-5.0); Chloride 111 mmol/L (98-107); Potassium 4.2 mmoL/L (3.5-5.1); Sodium 138 mmol/L (136-145)
[2025-05-27 06:24] LABS: Blood Urea Nitrogen 18 mg/dl (9-20); Creatinine Clearance Estimated 70 mL/min (50-200); Creatinine,Serum 0.90 mg/dl (0.66-1.25); Estimated Glomerular Filt Rate 82 ml/min (>60); GFR (African American) 99 ML/MIN (>60)
[2025-05-27 06:25] LABS: Alanine Aminotransferase 23 U/L (12-78); Albumin/Globulin Ratio 1.5 (1.1-1.8); Alkaline Phosphatase 77 U/L (38-126); Anion Gap 4.2 mEq/L (5-15); Aspartate Amino Transferase 27 U/L (17-59); Bilirubin,Total 0.4 mg/dl (0.2-1.3); Calcium 8.6 mg/dl (8.4-10.2); Carbon Dioxide 27 mmol/L (22.0-30.0); Globulin 2.4 g/dL (1.3-3.2); Glucose 94 mg/dl (74-100); Magnesium 1.7 mg/dl (1.6-2.3); Total Protein,Serum 5.9 g/dl (6.3-8.2)
[2025-05-27 06:57] LABS: Free T4 (Free Thyroxine) 1.07 ng/dl (0.78-2.19)
[2025-05-27 07:11] LABS: Thyroid Stimulating Hormone 3.05 uIU/mL (0.465-4.68)
--- NOTE | 2025-05-27 07:41 | IR_ITS ---
APPROVED REPORT Patient Location: Inpatient Automatic Punch [employer] Operator: ADAM Gutierrez RT (R) PROCEDURES 1. Pocket formation for biventricular pacemaker generator with cardiac resynchronization therapy. 2. Placement of atrial sensing and pacing lead into the right atrial appendage. 3. Placement of a right ventricular sensing, pacing lead in the right ventricular apex. 4. Placement of left ventricular sensing pacing lead via the coronary sinus. 5. Permanent cardiac resynchronization therapy with biventricular pacemaker. INDICATION Third-degree heart block, Ejection fraction 45% Informed consent was obtained prior to the procedure. COMPLICATIONS NONE Estimated Blood Loss: LESS THAN 10 ML TECHNIQUE 1% Lidocaine with epinephrine used to anesthetized the left anterior aspect of the chest. Scalpel was used to make the initial cutaneous incision while electrocautery was used to dissect down tinto the fascia. The fascia was lifted off the pectoralis muscle and digitally manipulated creating a pocket for the pacemaker. The patient was then placed in Trendelenburg position and the subclavian vein was accessed three times via the Selinger technique, there are three wires in the vein. A 9.5 Serbian sheath and dilator was then placed over one of the wires while keeping the other two wires in place within the subclavian vein. The dilator was removed from the sheath. Using fluoroscopic guidance, contrast was used to visualize the coronary sinus, the left ventricular lead was placed into the coronary sinus. Electronic interrogation proved acceptable thresholds and voltage within the lead. Using 3-0 silk, the left ventricular lead was then secured into place and sheath peeled away. A 6 Serbian sheath was placed under fluoroscopic guidance into the subclavian vein over one of the wires while keeping the other wire in place within the subclavian vein. The dilator was removed from the sheath. Using fluoroscopic guidance, the ventricular lead was placed into the right ventricular apex, screwed and secured into place. Electronic interrogation proved acceptable thresholds and voltage within the lead. Using 3-0 silk, the ventricular lead was then secured into place. Lead was secured to the facia using the 3-0 silk. Following this, the sheath was pealed away. An additional 6 Serbian fresh sheath and dilator was placed over the existing wire. Using fluoroscopic guidance, the atrial lead was the placed into the right atrial appendage and screwed and secured in place. Electrical interrogation demonstrated acceptable thresholds and voltage number. The atrial lead was then secured into place using 3-0 silk. 1 gram of Ancef was used to flush the pocket. Following the pacemaker generator being secured to the fascia and in place, Monocryl was used to close the subcutaneous layers while rubi were used to close the cutaneous layer. A pressure dressing was placed and the patient was transferred to the postop holding area in stable condition for postoperative care. INTERROGATION Generator Model number: Quadra Allure MP, VIDEO SYSTEMS ENGINEER, [id number] Generator Serial number: [id number] Atrial lead model number: Tendril STS, 52cm, 2088TC Atrial lead serial number: [id number] P-wave: 2mV Impedance: 410 ohms Threshold: 0.75V@0.4ms Right Ventricular lead model number: Tendril STS, 58cm, 2088TC Right Ventricular lead serial number: [id number] R-wave: 10mV Impedance: 680 ohms Threshold: 0.5V@0.4ms Left Ventricular lead model number: Quartet, 86cm, 1458Q Left Ventricular lead serial number: [id number] Impedance: 680 ohms Threshold: 2V@1.0ms M2 - RV ring Pacing Parameters: Mode: DDD Base/Max Track: 60 ppm / 130 ppm No diaphragmatic stimulation at 10 volts. IMPRESSION 1. Successful Pocket formation for biventricular pacemaker generator with cardiac resynchronization therapy. 2. Successful Placement of atrial sensing and pacing lead into the right atrial appendage. 3. Successful Placement of a right ventricular sensing, pacing lead in the right ventricular apex. 4. Successful Placement of left ventricular sensing pacing lead via the coronary sinus. 5. Successful Permanent cardiac resynchronization therapy with biventricular pacemaker. PLAN 1. Postop wound care. Electronically signed by : Arturo Cain MD 05/27/2025 15:29:28
[2025-05-27] MEDS: ASPIRIN EC 81MG TABLET 81 MG PO (08:42)
[2025-05-27] MEDS: CLOPIDOGREL 75MG TAB 75 MG PO (08:42)
[2025-05-27] MEDS: TAMSULOSIN 0.4MG CAPSULE 0.4 MG PO (08:42)
[2025-05-27] MEDS: FINASTERIDE 5MG TABLET 5 MG PO (08:42)
--- NOTE | 2025-05-27 10:59 | P.PNANES_ITS ---
[facility] Disclaimer: The information contained in this section may have been updated after the patient was seen, as this information can be updated by other users. Medical History Carotid artery stenosis Coronary artery disease Other chest pain Other forms of angina pectoris Angina, class III Obstructive sleep apnea Hypertensive heart disease Hyperlipemia Chronic kidney disease, stage 2 (mild) Surgical History S/P pericardial window creation Stented coronary artery Social History (Updated 05/26/25 @ 13:43 by Tamia Resendez RN) Smoking Status: Never smoker alcohol intake: never substance use type: denies use current occupational status: retired Travel in the last 8 weeks?: Inside the [place] household members: spouse housing: house current occupational exposures/hazards: No caffeine: No Have you lived/traveled outside US in past 30 days?: No Contact w/someone who lives/traveled outside US past 30 days?: No Exposure to someone with infectious disease in past 14 days?: No Do you have a fever (greater than 100.4 F or 38 C)?: No Have you tested positive for COVID-19?: No Exposed to someone with COVID-19 in past 14 days?: No Do you have a sore throat?: No Do you have a cough?: No Do you have any weakness?: No Do you have any diarrhea?: No Are you experiencing any unusual bleeding?: No Do you have any muscle aches/pain?: Yes Do you have any abdominal pain?: No Are you experiencing loss of taste or smell?: No [facility] Anesthesia Checklist Patient Identification Patient Identification: Arm Band Structural Data Admitted From: Inpatient Planned Operative Procedure/s: Dual Chamber Pacemaker Consent for Planned Operative Procedure(s) Verified: Yes Verified Documents: Surgical Consent and History and Physical NPO Status Verified Time NPO: 00:00 Additional verifications Anesthesia Reactions: No Airway Assessment Mallampati Score:: Class II C-Spine Mobility Assessed: Yes TMJ Mobility Assessed: Yes Dentition: Good Dentition Neurological Assessment Level of Consciousness: Awake, Alert and Appropriate Anesthesia Plan Anesthesia Risk discussed: Yes Anesthesia Plan: Verified ASA Class: IV Anesthesia Type: MAC
--- NOTE | 2025-05-27 12:01 | PC.NURSE ---
patient transferred to the med surg floor at this time with ICU staff
--- NOTE | 2025-05-27 13:05 | PC.NURSE ---
pt left to rn cardiac cath with rn cardiac cath staff
[2025-05-27] MEDS: LIDOCAINE 1% W/EPI 1:100,000 20ML VIAL 20 ML SQ (13:19)
[2025-05-27] MEDS: 0.9 % SODIUM CHLORIDE 1000ML 1,000 ML 25 ML IV (13:20)
--- NOTE | 2025-05-27 13:37 | EXP.CARD.PN ---
Subjective Subjective Date: 05/27/25 Time: 08:00 Principal diagnosis: 3rd degree block Interval history: Doing well this. He denies chest pain or shortness of breath. He denies any events throughout the evening. Currently awaiting pacemaker placement. Exam Data for Last 24 hours Vital signs and Labs for Last 24 Hours: Temp Pulse Resp BP Pulse Ox O2 Del Method 97.9 F 55 L 19 144/70 H 97 Room Air 05/27/25 12:00 05/27/25 12:00 05/27/25 12:00 05/27/25 12:00 05/27/25 12:00 05/27/25 13:00 Laboratory Results - last 24 hr 05/26/25 15:12: Troponin I < 0.01 05/26/25 17:12: Lactate 1.2 05/26/25 18:54: Troponin I < 0.01 05/27/25 05:03: WBC 6.6 D, RBC 3.86 L, Hgb 13.0 L D, Hct 37.8 L, MCV 97.9 H, MCH 34.2 H, MCHC 34.9, RDW 12.9, Plt Count 179, MPV 11.2 H, Neut % (Auto) 72.0, Lymph % (Auto) 16.6, [place] % (Auto) 7.6, Eos % (Auto) 2.1, Baso % (Auto) 0.5, Neut # (Auto) 4.7, Lymph # (Auto) 1.1, [place] # (Auto) 0.5, Eos # (Auto) 0.1, Baso # (Auto) 0.0, Sodium 138, Potassium 4.2, Chloride 111 H, Carbon Dioxide 27, Anion Gap 4.2 L, BUN 18, Creatinine 0.90, Estimated Creat Clear 70, Estimated GFR 82, Est GFR ( Amer) 99, Glucose 94 D, Calcium 8.6, Magnesium 1.7, Total Bilirubin 0.4, AST 27 D, ALT 23 D, Alkaline Phosphatase 77, Total Protein 5.9 L, Albumin 3.5 D, Globulin 2.4, Albumin/Globulin Ratio 1.5, TSH 3.05, Free T4 1.07 I & O for Last 24 hours: Intake & Output 05/24/25 05/25/25 05/26/25 05/27/25 23:59 23:59 23:59 23:59 Intake Total 240 / 240 Output Total 600 / 900 1450 / 1450 Balance -360 / -660 -1450 / -1450 Weight 180 lb 180 lb 0.013 oz Constitutional Constitutional: no acute distress *Routine Respiratory Exam Respiratory: Present CTA bilaterally and symmetric chest movement *Routine Cardiovascular Exam Cardiovascular: Present RRR, Normal S1 and Normal S2 *Routine Abdominal Exam Abdominal: Present soft and normoactive bowel sounds; Absent tenderness *Routine Extremities Exam Extremities: Present full ROM and normal capillary refill; Absent edema *Routine Skin Exam Skin: Present intact, dry and warm Detailed Neck Exam: Thyroids Thyroid: Absent bruit Progress Note: A&P Assessment and plan (1) Third degree AV block: Status: Acute Assessment and Plan Assessment and Plan for All Diagnoses:: Near syncope Dizziness Generalized weakness High degree AV block Initial EKG shows high degree AV block rate of 37. Repeat shows normal sinus rhythm at a rate of 59 Echocardiogram EF 45 Awaiting BiV pacemaker placement History of coronary artery disease Medical management heart cath 2023 Previous [place] Troponin negative Can continue aspirin and statin CV summary 05/27/2025: Awaiting pacemaker placement
--- NOTE | 2025-05-27 15:08 | XR_ITS ---
FINAL REPORT CLINICAL HISTORY: Confirm pacemaker/AID placement COMPARISON: None FINDINGS: A portable view of the chest was obtained. A left-sided pacemaker is present, with rubi overlying the pacer device. Cardiac and mediastinal silhouettes are within normal limits. The lungs are clear. There is no pleural effusion or pneumothorax. IMPRESSION: A left-sided pacemaker is present, with no acute process on this portable exam. Reviewed, Interpreted and Dictated by Kathleen Chong MD Transcribed by Katelynn Pierre Authenticated and [facility]
--- NOTE | 2025-05-27 15:12 | PC.NURSE ---
patient arrived back from lab coordinator
--- NOTE | 2025-05-27 16:04 | EXP.DC.SUM ---
General Admission date:: 05/26/25 HPI HPI HPI: Guerrero Warner is a 79-year-old male with a medical history significant for CAD with stents who presented with chest pain. He states has been having on and off chest pain for about 3 months, without radiation. Denies shortness of breath, fever/chills. Workup in the ED significant for EKG concerning for third-degree heart block, Dr. Cain was consulted who recommended admission and permanent pacemaker tomorrow. Heart rate initially 37, but improved to 50s. Other vital stable. On telemetry, patient is going in and out of third-degree heart block. CBC, CMP, CXR unremarkable. Given these findings ED provider consulted with me and I decided to admit patient for further evaluation and management. Hospital Course Hospital Course Hospital Course: Guerrero Warner is a 79-year-old male with a medical history significant for CAD with stents who presented with chest pain. He states has been having on and off chest pain for about 3 months, without radiation. Denies shortness of breath, fever/chills. Workup in the ED significant for EKG concerning for third-degree heart block, Dr. Cain was consulted who recommended admission and permanent pacemaker tomorrow. Heart rate initially 37, but improved to 50s. Other vital stable. On telemetry, patient is going in and out of third-degree heart block. CBC, CMP, CXR unremarkable. Given these findings ED provider consulted with me and I decided to admit patient for further evaluation and management. #Third-degree AV block #Chest pain #Presyncope ? Presented with chest pain, presyncope from cardiology clinic and found to have high degree AV block on initial EKG in the ED. Currently NSR. ? Intermittently went in and out of third-degree heart block. Troponins normal. Vitals remained stable, patient without acute distress. ? Cardiology consulted, s/p permanent dual-chamber pacemaker on 05/27/2025. No plans for LHC as patient had a LHC in November 2023 recommending medical management. ? ECHO shows LVEF 45% without wall motion abnormalities. Continue home lisinopril, spironolactone. LVEF may improve with PPM. TSH, free T4 normal. ? Follow-up with cardiology within 1 week. #CAD with stents ? Continue home aspirin, Plavix, statin. #Hypertension ? Continue home lisinopril, spironolactone. #GERD ? Continue home PPI. #BPH ? Continue home Flomax, finasteride. Exam Data for Last 24 hours Vital signs and Labs for Last 24 Hours: Temp Pulse Resp BP Pulse Ox O2 Del Method 97.7 F 65 18 126/75 96 Room Air 05/27/25 15:14 05/27/25 16:00 05/27/25 16:00 05/27/25 16:00 05/27/25 16:00 05/27/25 16:00 Laboratory Results - last 24 hr 05/26/25 17:12: Lactate 1.2 05/26/25 18:54: Troponin I < 0.01 05/27/25 05:03: WBC 6.6 D, RBC 3.86 L, Hgb 13.0 L D, Hct 37.8 L, MCV 97.9 H, MCH 34.2 H, MCHC 34.9, RDW 12.9, Plt Count 179, MPV 11.2 H, Neut % (Auto) 72.0, Lymph % (Auto) 16.6, [place] % (Auto) 7.6, Eos % (Auto) 2.1, Baso % (Auto) 0.5, Neut # (Auto) 4.7, Lymph # (Auto) 1.1, [place] # (Auto) 0.5, Eos # (Auto) 0.1, Baso # (Auto) 0.0, Sodium 138, Potassium 4.2, Chloride 111 H, Carbon Dioxide 27, Anion Gap 4.2 L, BUN 18, Creatinine 0.90, Estimated Creat Clear 70, Estimated GFR 82, Est GFR ( Amer) 99, Glucose 94 D, Calcium 8.6, Magnesium 1.7, Total Bilirubin 0.4, AST 27 D, ALT 23 D, Alkaline Phosphatase 77, Total Protein 5.9 L, Albumin 3.5 D, Globulin 2.4, Albumin/Globulin Ratio 1.5, TSH 3.05, Free T4 1.07 I & O for Last 24 hours: Intake & Output 05/24/25 05/25/25 05/26/25 05/27/25 23:59 23:59 23:59 23:59 Intake Total 240 / 240 50 / 50 Output Total 600 / 900 1450 / 1450 Balance -360 / -660 -1400 / -1400 Weight 81.647 kg 81.647 kg Constitutional Constitutional: no acute distress *Routine HEENT Exam Head: Present normocephalic Eye: Present EOMI and PERRL ENT: Present mucous membranes moist *Routine Neck Exam Neck: Present supple; Absent lymphadenopathy *Routine Respiratory Exam Respiratory: Present CTA bilaterally *Routine Cardiovascular Exam Cardiovascular: Present RRR *Routine Abdominal Exam Abdominal: Present soft and normoactive bowel sounds; Absent tenderness *Routine Extremities Exam Extremities: Absent cyanosis, clubbing or edema *Routine Skin Exam Skin: Present warm; Absent rash *Routine Neurological Exam Neurological: Present alert and oriented X3 Results Data Completed and Pending Labs on day of discharge: Labs from last 24 hours 05/27/25 05/26/25 05/26/25 05:03 18:54 17:12 WBC 6.6 D RBC 3.86 L Hgb 13.0 L D Hct 37.8 L MCV 97.9 H MCH 34.2 H MCHC 34.9 RDW 12.9 Plt Count 179 MPV 11.2 H Neut % (Auto) 72.0 Lymph % (Auto) 16.6 [place] % (Auto) 7.6 Eos % (Auto) 2.1 Baso % (Auto) 0.5 Neut # (Auto) 4.7 Lymph # (Auto) 1.1 [place] # (Auto) 0.5 Eos # (Auto) 0.1 Baso # (Auto) 0.0 Sodium 138 Potassium 4.2 Chloride 111 H Carbon Dioxide 27 Anion Gap 4.2 L BUN 18 Creatinine 0.90 Estimated Creat Clear 70 Estimated GFR 82 Est GFR ( Amer) 99 Glucose 94 D Lactate 1.2 Calcium 8.6 Magnesium 1.7 Total Bilirubin 0.4 AST 27 D ALT 23 D Alkaline Phosphatase 77 Troponin I < 0.01 Total Protein 5.9 L Albumin 3.5 D Globulin 2.4 Albumin/Globulin Ratio 1.5 TSH 3.05 Free T4 1.07 DS: Diagnosis Discharge Diagnosis (1) Third degree AV block: Status: Acute Code(s): I44.2 - Atrioventricular block, complete Meds Home Medications and Allergies Home Medications ?Medication ?Instructions ?Recorded ?Confirmed ?Type aspirin 81 mg tablet,delayed 81 mg PO DAILY heart health 10/06/17 05/26/25 History release (Adult Low Dose Aspirin) pantoprazole 40 mg tablet,delayed 40 mg PO DAILY GERD 09/19/20 05/26/25 History release finasteride 5 mg tablet 5 mg PO DAILY 10/23/22 05/26/25 History trazodone 50 mg tablet 50 - 150 mg PO HS 04/22/23 05/26/25 History atorvastatin 20 mg tablet 20 mg PO DAILY Cholesterol #90 tabs 10/21/23 05/26/25 Rx lisinopril 40 mg tablet 40 mg PO DAILY PRN Hypertension 04/20/24 05/26/25 History methadone 10 mg tablet 20 mg PO TID PRN WITHDRAWAL 04/20/24 05/26/25 History spironolactone 25 mg tablet 25 mg PO DAILY #90 tabs 04/20/24 05/26/25 Rx fluticasone propionate 50 1 spray intranasal BID 08/16/24 05/26/25 History mcg/actuation nasal spray,suspension tamsulosin 0.4 mg capsule 0.4 mg PO BID 08/16/24 05/26/25 History clopidogrel 75 mg tablet 75 mg PO DAILY 05/26/25 05/26/25 History New Prescriptions to Start Prescriptions: Allergies Allergy/AdvReac Type Severity Reaction Status Date / Time ciprofloxacin (From Cipro) Allergy Rash Verified 05/26/25 11:59 Sulfa (Sulfonamide Allergy Rash Verified 05/26/25 11:59 Antibiotics) Discharge Plan Disposition Patient Disposition: Home, Self-Care Condition: Fair Discharge Order Discharge Orders: Discharge Order (Routine); Ordered 05/27/25 Ordered By: Long Malave Follow up Plan Follow up with: Kyleigh Negro APRN [Nurse Practitioner, Cardiology] - 1 week Prescriptions/Medication Reconciliation: Continued aspirin [Adult Low Dose Aspirin] 81 mg tablet,delayed release (DR/EC) 81 mg PO DAILY lisinopril 40 mg tablet 40 mg PO DAILY PRN (Reason: Hypertension) spironolactone 25 mg tablet 25 mg PO DAILY Qty: 90 3RF finasteride 5 mg tablet 5 mg PO DAILY Patient Comments: TAKE 1 TABLET BY MOUTH ONCE DAILY trazodone 50 mg tablet 50 - 150 mg PO HS Patient Comments: TAKE 1 TO 2 TABLETS BY MOUTH AT BEDTIME atorvastatin 20 mg tablet 20 mg PO DAILY Qty: 90 3RF tamsulosin 0.4 mg capsule 0.4 mg PO BID Patient Comments: TAKE 1 CAPSULE BY MOUTH TWICE DAILY fluticasone propionate 50 mcg/actuation spray,suspension 1 spray intranasal BID Patient Comments: USE 1 SPRAY(S) IN EACH NOSTRIL TWICE DAILY FOR 10 DAYS pantoprazole 40 MG tablet,delayed release (DR/EC) 40 mg PO DAILY methadone 10 mg tablet 20 mg PO TID PRN (Reason: WITHDRAWAL) clopidogrel 75 mg tablet 75 mg PO DAILY Problem Reconciliation Problems Reviewed?: Yes Patient Discharge Instructions Print Language: Maltese Providers Primary Care Provider: Alcon Hare Admchris Provider: Long Malave Attending Provider: Long Malave
--- NOTE | 2025-05-27 17:25 | PC.NURSE ---
Addendum entered by Deyanira Fernandez RN 05/27/25 17:36: MD spence stated to keep verónica on until 183 then he can go home. Original Note: When helping the patient get dressed the dressing over the new pacemaker was saturated in blood and area around pacemaker appears more swollen than when patient came back from the laboratory [facility]. MD oRjas was made aware and stated that he would come over and see the patient.
--- NOTE | 2025-05-27 18:42 | PC.NURSE ---
[address] Malave that pt new dressing that was applied by Iris Fernandez while was assessing, now has approx 1in x 2in of bloody drainage noted. outline was marked by Iris fernandez RN. per notify family/pt to apply light pressure to site when resting at home. monitor site and if they notice any blood that has pooled under the tegaderm/around the gauze to present to the ER for evaluation. Pt daughter Liane acknowledged education by myself and Iris Fernandez RN.
--- NOTE | 2025-05-27 18:45 | PC.NURSE ---
patient left the ICU with ICU staff at this time
== END 2025-05-27 18:46 | disposition home or self-care (01) | DRG 244 ==
LOC: ER 12:20 → ICU 12:37
PROVIDERS: Internal Medicine; Admitting Provider Student in an Organized Health Care Education/Training Program; Emergency Provider Student in an Organized Health Care Education/Training Program; PCP Family Medicine; Visit Provider Student in an Organized Health Care Education/Training Program
PROC: 0JH607Z Insertion of Cardiac Resynchronization Pacemaker Pulse Generator into Chest Subcutaneous Tissue and Fascia, Open Approach (ICD-10-PCS; principal; 2025-05-27 11:30)
DX: I44.2 Atrioventricular block, complete (principal); I25.10 Atherosclerotic heart disease of native coronary artery without angina pectoris; Z95.5 Presence of coronary angioplasty implant and graft; K21.9 Gastro-esophageal reflux disease without esophagitis; N40.0 Benign prostatic hyperplasia without lower urinary tract symptoms; I12.9 Hypertensive chronic kidney disease with stage 1 through stage 4 chronic kidney disease, or unspecified chronic kidney disease; N18.2 Chronic kidney disease, stage 2 (mild); Z79.82 Long term (current) use of aspirin; Z79.899 Other long term (current) drug therapy; Z79.02 Long term (current) use of antithrombotics/antiplatelets
CPT/HCPCS: 36415; 71045; 80053; 82803; 83605; 83735; 83880; 84439; 84443; 84484; 85025; 93005; 93306; 99285; J2004; J7030

== ENCOUNTER 2025-07-11 09:11 | Emergency (ER) | payer OTHER, MEDICARE, SELFPAY ==
[2025-07-11] VITALS (15 sets, daily range): BP systolic 131–199; BP diastolic 69–100; PULSE 58–69; RESP 11–26; TEMP 36.6–36.8; O2SAT 96–99; BMI 25.1
--- NOTE | 2025-07-11 09:09 | ECG_ITS ---
APPROVED REPORT Exam: Resting ECG HR:68 bpm ECG Measurements Heart Rate 68 AXES OK 165 P 64 QRSd 129 QRS -28 QT 380 T 75 QTc 397 Conclusion SINUS RHYTHM BORDERLINE LEFT AXIS DEVIATION [QRS AXIS < -20] POSSIBLE RIGHT VENTRICULAR CONDUCTION DELAY [RSR (QR) IN V1/V2] ST DEVIATION AND MODERATE T-WAVE ABNORMALITY, CONSIDER ANTERIOR ISCHEMIA [-0.1+ mV T-WAVE IN V3/V4] ABNORMAL ECG UNCONFIRMED REPORT Electronically signed by : Arthur Oviedo, 07/11/2025 15:49:29
--- NOTE | 2025-07-11 09:18 | ED_ITS ---
Discharge Plan Disposition Patient Disposition: Home, Self-Care Condition: Good Prescriptions Prescriptions: No Action aspirin [Adult Low Dose Aspirin] 81 mg tablet,delayed release (DR/EC) 81 mg PO DAILY lisinopril 40 mg tablet 40 mg PO DAILY PRN (Reason: Hypertension) spironolactone 25 mg tablet 25 mg PO DAILY Qty: 90 3RF finasteride 5 mg tablet 5 mg PO DAILY Patient Comments: TAKE 1 TABLET BY MOUTH ONCE DAILY trazodone 50 mg tablet 50 - 150 mg PO HS Patient Comments: TAKE 1 TO 2 TABLETS BY MOUTH AT BEDTIME atorvastatin 20 mg tablet 20 mg PO DAILY Qty: 90 3RF tamsulosin 0.4 mg capsule 0.4 mg PO BID Patient Comments: TAKE 1 CAPSULE BY MOUTH TWICE DAILY fluticasone propionate 50 mcg/actuation spray,suspension 1 spray intranasal BID Patient Comments: USE 1 SPRAY(S) IN EACH NOSTRIL TWICE DAILY FOR 10 DAYS pantoprazole 40 MG tablet,delayed release (DR/EC) 40 mg PO DAILY methadone 10 mg tablet 20 mg PO TID PRN (Reason: WITHDRAWAL) clopidogrel 75 mg tablet 75 mg PO DAILY Referrals Follow up/Referrals: Alcon Hare MD [Primary Care Provider, Medical] - See instructions Activity Restrictions/Add. Instructions Additional Instructions/Restrictions: Follow-up with cardiology at pacemaker clinic as scheduled. Return if your chest pain changes in characteristic or you develop shortness of breath. please follow up with your primary care provider in 2-3 days. Please return to ED if your symptoms worsen, change in location, change in severity, new symptoms develop or if you become concerned for your health. Clinical Impressions Clinical Impression: Chest pain, Pacemaker complications Print Language Print Language: Liberian Discharge ED Provider: Arthur Oviedo Adult HPI General Chief complaint: Chest Pain Stated complaint: Chest Pain Time Seen by Provider: 07/11/25 09:18 History of Present Illness HPI narrative: Patient is a 79-year-old male with history of third gravy block s/p biventricular pacemaker defibrillator 6 weeks ago, ankylosing spondylitis, hypertension, kidney disease. Patient is a due to concerns for being shocked by his pacemaker. He reports that ever since he was discharged from the hospital on 06/20/2025 that he has had up to 5 episodes daily of what he feels like is a shock. It is a sharp stabbing substernal pain that feels like an electric shock. He reports is not necessarily associated with exertion. It can happen at any time. Most recently happened this morning while he was resting in bed at around 5:30 AM. He denies any preceding symptoms such as lightheadedness or dizziness or shortness of breath. Denies any chest pain in the interim. Denies any lower extremity edema. Denies any fevers cough congestion runny nose vomiting diarrhea. Has been eating and drinking normally. Related Data Home Medications ?Medication ?Instructions ?Recorded ?Confirmed aspirin 81 mg tablet,delayed 81 mg PO DAILY heart heal th 10/06/17 07/11/25 release (Adult Low Dose Aspirin) pantoprazole 40 mg tablet,delayed 40 mg PO DAILY GERD 09/19/20 07/11/25 release finasteride 5 mg tablet 5 mg PO DAILY 10/23/2207/11 trazodone 50 mg tablet 50 - 150 mg PO HS 04/22/23 1 lisinopril 40 mg tablet 40 mg PO DAILY PRN Hypertens ion 04/20/24 07/11/25 methadone 10 mg tablet 20 mg PO TID PRN WITHDRAWAL 04/20/24 07/11/25 fluticasone propionate 50 1 spray intranasal BID 08/1607/11/25 mcg/actuation nasal spray,suspension tamsulosin 0.4 mg capsule 0.4 mg PO BID 08/16/2407/11 clopidogrel 75 mg tablet 75 mg PO DAILY 05/26/2506/29 Previous Rx's ?Medication ?Instructions ?Recorded atorvastatin 20 mg tablet 20 mg PO DAILY Cholesterol # 90 tabs 10/21/23 spironolactone 25 mg tablet 25 mg PO DAILY #90 tabs Allergies Allergy/AdvReac Type Severity Reaction Status Date / Time ciprofloxacin (From Cipro) Allergy Rash Verified 07/11/25 09:32 Sulfa (Sulfonamide Allergy Rash Verified 07/11/25 09:32 Antibiotics) [facility] Disclaimer: The information contained in this section may have been updated after the patient was seen, as this information can be updated by other users. Medical History (Updated 07/11/25 @ 14:40 by Arthur Oviedo MD) Cardiac pacemaker in situ Carotid artery stenosis Coronary artery disease Other chest pain Other forms of angina pectoris Angina, class III Obstructive sleep apnea Hypertensive heart disease Hyperlipemia Chronic kidney disease, stage 2 (mild) Surgical History Status post biventricular pacemaker S/P pericardial window creation Stented coronary artery Social History Smoking Status: Former smoker alcohol intake: never substance use type: denies use current occupational status: retired Travel in the last 8 weeks?: Inside the [place] household members: spouse housing: house current occupational exposures/hazards: No caffeine: No Other Medical History Have you received the Flu Vaccine for this season: No Have you received the Pneumonia Vaccine: Yes ROS Obtained: Yes All systems reviewed & no additional complaints except as documented Physical Exam General General appearance: alert and in no apparent distress Head Head exam: atraumatic and normocephalic Eye Eye exam: Present PERRL and EOMI ENT ENT exam: Present normal oropharynx Neck Neck exam: Present full ROM and trachea midline Chest Chest inspection: Present symmetric chest wall rise Respiratory Respiratory exam: Present normal lung sounds bilaterally; Absent stridor Cardiovascular Cardiovascular exam: Present regular rate and normal rhythm Abdominal Exam Abdominal exam: Present soft; Absent distention or tenderness Extremities Exam Extremities exam: Present full ROM Neurological Exam Neurological exam: Present alert and oriented X3 Psychiatric Psychiatric exam: Present normal mood Skin Skin exam: Present warm and dry Medical Decision Making Medical Records Screening: Per USPSTF and CDC recommendations, given the prevalence of disease in our region, it is our hospital?s policy to screen for HIV and viral Hepatitis for all patients aged 18 and over and those with ongoing risk factors. Ayan Inquiry Pt receiving controlled substance: No Vital Signs: 07/11/25 09:11 07/11/25 09:11 07/11/25 09:31 Temperature 97.8 F Temperature Source Oral Pulse Rate 69 60 Pulse Rate [Apical] 69 Respiratory Rate 18 11 L Blood Pressure 169/78 H Blood Pressure [Right Arm] 197/93 H Blood Pressure Mean [Right Arm] 127 Blood Pressure Source [Right Arm] Automatic Cuff Blood Pressure Position [Right Arm] Sitting 02 Sat by Pulse Oximetry 98 98 Oxygen Delivery Method Room Air Room Air 07/11/25 10:00 07/11/25 10:45 07/11/25 11:00 Temperature Temperature Source Pulse Rate 58 L 60 60 Pulse Rate [Apical] Respiratory Rate 20 21 15 Blood Pressure 140/69 133/70 132/70 Blood Pressure [Right Arm] Blood Pressure Mean [Right Arm] Blood Pressure Source [Right Arm] Blood Pressure Position [Right Arm] 02 Sat by Pulse Oximetry 97 97 97 Oxygen Delivery Method Room Air Room Air Room Air 07/11/25 11:30 07/11/25 12:00 07/11/25 12:15 Temperature Temperature Source Pulse Rate 60 60 60 Pulse Rate [Apical] Respiratory Rate 20 13 26 H Blood Pressure 131/71 154/78 H Blood Pressure [Right Arm] Blood Pressure Mean [Right Arm] Blood Pressure Source [Right Arm] Blood Pressure Position [Right Arm] 02 Sat by Pulse Oximetry 96 97 99 Oxygen Delivery Method Room Air 07/11/25 12:24 07/11/25 13:00 07/11/25 13:31 Temperature Temperature Source Pulse Rate 60 61 60 Pulse Rate [Apical] Respiratory Rate 16 12 18 Blood Pressure 175/86 H 165/89 H 199/100 H Blood Pressure [Right Arm] Blood Pressure Mean [Right Arm] Blood Pressure Source [Right Arm] Blood Pressure Position [Right Arm] 02 Sat by Pulse Oximetry 99 99 98 Oxygen Delivery Method Room Air Room Air Room Air 07/11/25 13:34 07/11/25 14:00 Temperature Temperature Source Pulse Rate 60 60 Pulse Rate [Apical] Respiratory Rate 20 16 Blood Pressure 158/73 H 158/80 H Blood Pressure [Right Arm] Blood Pressure Mean [Right Arm] Blood Pressure Source [Right Arm] Blood Pressure Position [Right Arm] 02 Sat by Pulse Oximetry 98 97 Oxygen Delivery Method Room Air Room Air Lab Data Lab Results 07/11/25 09:10: WBC 7.6, RBC 4.67, Hgb 15.3, Hct 45.8, MCV 98.1 H, MCH 32.8 H, MCHC 33.4, RDW 12.7, Plt Count 183, MPV 10.3, Neut % (Auto) 69.8, Lymph % (Auto) 19.2, [place] % (Auto) 7.1, Eos % (Auto) 2.1, Baso % (Auto) 0.5, Neut # (Auto) 5.3, Lymph # (Auto) 1.5, [place] # (Auto) 0.5, Eos # (Auto) 0.2, Baso # (Auto) 0.0, PT 11.1, INR 1.00, D-Dimer 0.91 H, Sodium 140, Potassium 4.1, Chloride 104, Carbon Dioxide 28, Anion Gap 12.1, BUN 13, Creatinine 0.90, Estimated Creat Clear 70, Estimated GFR 82, Est GFR ( Amer) 99, Glucose 116 H, Calcium 9.1, Magnesium 1.8, Total Bilirubin 0.5, AST 28, ALT 19, Alkaline Phosphatase 98, Troponin I < 0.01, Total Protein 7.5 D, Albumin 4.2, Globulin 3.3 H, Albumin/Globulin Ratio 1.3, HCV Ab SAMUEL w/Rflx PCR Qn Negative, HIV Ag/Ab Combo Qual Negative 07/11/25 12:15: Troponin I < 0.01 07/11/25 09:10 07/11/25 09:10 Orders (Tests/Meds): ED MEDICATIONS Discontinued Medications Generic Name Dose Route Start Last Admin Trade Name Freq PRN Reason Stop Dose Admin Iopamidol 85 ml 07/11/25 12:34 07/11/25 12:35 Iopamidol-370 (76%);100ml Bottle IV 07/11/25 12:35 85 ml ONCE ONE Administration Sodium Chloride 50 ml 07/11/25 12:34 07/11/25 12:35 0.9 % Sodium Chloride 50 Ml Vial IV 07/11/25 12:35 50 ml ONCE ONE Administration Sodium Chloride 10 ml 07/11/25 12:34 07/11/25 12:35 Sodium Chloride 0.9% 10ml Syr (Rad Only) IV 07/11/25 12:35 10 ml ONCE ONE Administration ORDERS Category Date Time Status CT angio chest PE protocol Stat Cat Scan 07/11/25 11:37 Taken XR chest portable Stat Exams 07/11/25 09:19 Completed CBC w/Auto Diff [Complete Blood Count Auto Diff] Stat Lab 07/11/25 09:10 Completed CMP [Comprehensive Metabolic Panel] Stat Lab 07/11/25 09:10 Completed D-Dimer Stat Lab 07/11/25 09:10 Completed HIV Combo Routine Lab 07/11/25 09:10 Completed Hepatitis C Ab Qual. W/ RFX Routine Lab 07/11/25 09:10 Completed MAG [Magnesium] Stat Lab 07/11/25 09:10 Completed PT INR [Prothrombin Time INR] Stat Lab 07/11/25 09:10 Completed Trop I [Troponin I] Stat Lab 07/11/25 09:10 Completed Troponin I Q3H Lab 07/11/25 12:15 Completed Troponin I Q3H Lab 07/11/25 15:30 Ordered ECG Data Tracing #1: I reviewed this ECG and interpreted as documented below: Independently interpreted by myself demonstrate normal sinus rhythm with incomplete right bundle branch block with no obvious acute ischemic ST change. HEART Score History (anamnesis): Slightly suspicious ECG: Non-specific disturbance Age: >65 years Risk factors: 3 or more risk factors Troponin: </= normal limit HEART Score: 5 Medical Decision Narrative: Patient is a 79-year-old male with history of tacky bradycardia and third-degree block s/p pacemaker defibrillator, hypertension kidney disease. Arriving today due to concerns for his defibrillator shocking him. On arrival, he is afebrile, hypertensive with systolics in the 180s, otherwise stable. On exam, warm and well-perfused with full pulses and brisk capillary refill. No anterior chest wall tenderness. Pacemaker insertion site is well-appearing with only mild ecchymoses. Lung sounds are clear bilaterally heart is regular rate and rhythm. He is in normal sinus on the shelter monitor, with no pacer spikes visualized. However, he is sinus into the 70s. He is asymptomatic right now. Asymptomatic in the between these episodes. I do suspect that it is it is pacemaker related. It could be that the sensitivity is too high versus that he is actually having arrhythmias that is shocking him out of, though this is felt to be less likely given that he is asymptomatic around these times. Will proceed with pacemaker interrogation as well as chest x-ray to evaluate for lead displacement. Basic hematologic labs to rule out electrolyte derangement. ACS screening with troponins and EKG. I independently interpreted the chest x-ray to demonstrate no acute cardiopulmonary abnormality. Radiology read remarks on possible pneumonia, but I favor this to be artifact given patient is not exhibiting any infectious symptoms or pneumonia, so we will defer treatment for this. I do interactive discussion with the [employer] labor union business representative who reports that in fact does not have defibrillator only biventricular pacemaker. Reports that patient has had no arrhythmias noted and no device malfunctions. Given that we do not have an etiology, and patient's recent ovulation, will screen with D- dimer for low risk PE. D-dimer elevated to 0.9, will proceed with CT PE. CT PE independently interpreted by myself demonstrate no evidence of pulmonary embolism. As patient was sitting here on telemetry, he had 2 other episodes of where he felt chest pain. I reviewed his telemetry strips and it looks like his pacer is going into a ventricular only pacing mode. Initially, looked appropriately V- paced. On his second telemetry strip when he was experiencing chest pain around 1300, it looks like he had a near R-on-T phenomenon with 1 beat. Cardiology is aware and will be evaluating him shortly. He remains hemodynamically stable and promptly reverts back to either a normal sinus or a AV paced rhythm. I had an interactive discussion with cardiology Saida ABBOTT and the automotive internet sales manager for [employer]. Ultimately, believes that there is diaphragmatic irritation which is causing his pain. They reviewed the telemetry strips and interrogated the device again and are not concerned. The device is working appropriately. Therefore, felt reasonable to discharge with follow-up with pacemaker clinic on Friday. Strict return precautions are discussed, all questions answered, amenable to plan and discharge. Critical Care Critical Care Time Critical Care Time: Yes Attestation: On 07/11/25, the high probability of a clinically significant, sudden or life threatening deterioration of the following system(s) required my full and direct attention, intervention and personal management. The time I documented below is in addition to time spent performing reported procedures but includes the following listed in this critical care notation. Total Time Total Critical Care Time: 36
--- NOTE | 2025-07-11 09:19 | XR_ITS ---
FINAL REPORT TECHNIQUE: Single view chest CLINICAL HISTORY: cp FINDINGS: A single view of the chest was obtained. 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 The heart and mediastinum are within normal limits. There is a peripheral right base opacity which could be artifact related to overlying soft tissues. However, pneumonia not excluded. Lungs are otherwise clear. There is no pneumothorax. IMPRESSION: Peripheral right base opacity which could be artifact. Pneumonia not excluded. Recommend follow-up two-view exam. Reviewed, Interpreted and Dictated by Kathleen Chong MD Transcribed by Meredith Damon Authenticated and [facility]
--- OUTSIDE RECORDS SUMMARY | 2025-07-11 09:19 | XMS_ITS | Data Portability ---
Author Organization [facility] Address [address] [place] [address] Assessment No assessment recorded. Plan of Treatment Reminders Order Date Submit Date Provider Last Modified By Organization Details Last Modified Time Details Appointments None recorded. Lab CMP, serum or plasma 2023 024 [facility], [address] [place] [address], [id number], 4 06:18:07 CBC w/ auto diff 2023 024 [facility], [address] [place] [address], [address], 4 06:18:06 lipid panel, serum 2023 024 [facility], [address] [place] [address], [address], 4 06:18:08 PSA, total, serum or plasma 2021 022 [facility], [address] [place] [address], [address], 2 12:08:49 vitamin D, 25-hydroxy, total, serum 2021 022 [facility], [address] [place] [address], [address], 2 12:08:50 TSH + free T4, serum 2021 022 [facility], [address] [place] [address], [address], 2 12:08:47 vitamin B12, serum 2021 022 [facility] [address] [place] [address], [address], 2 12:08:52 vitamin D, 25-hydroxy, total, serum [address], [address] [place] [address], [address], 2 09:42:27 magnesium, serum or plasma 2021 022 [facility], [address] [place] [address], [address], 2 12:08:52 CBC w/ auto diff 2021 [facility], [address] [place] [address], [address], 2 12:08:48 CMP, serum or plasma 2021 022 [facility], [address] [place] [address], [address], 2 12:08:49 iron + total iron-bindin g capacity (TIBC), serum [address], [address] [place] [address], [address], 2 16:38:34 DEEP (antinuclea r antibodies) screen, serum [address], [address], 2 12:08:51 Referral otolaryngol ogist referral 2024 025 TIFFANIE Saldivar MD, [address] [place] [address] , [address], [address], 5 13:42:51 Procedures None recorded. Surgeries None recorded. Imaging CT, chest, w/ contrast 2021 022 TIFFANIE Christy (Centralized Sched[facility]), [address] [place] [address], [place], [address], 2 11:37:33 Medication Orders fluticasone propionate 50 mcg/actuati on nasal spray,suspe nsion 2024 025 [facility] [address] [place], [address], 5 11:57:46 Mucinex D Maximum Strength 120 mg-1,200 mg tablet,exte nded release [address] [facility] [address], [address] [place], [address], 5 11:57:45 fluticasone propionate 50 mcg/actuati on nasal spray,suspe nsion 2023 025 [facility] [address], [address] [place], [address], 5 11:36:00 Arlene Allergy 180 mg tablet 2023 025 [facility] [address], [address] [place], [address], 5 11:35:32 trazodone 50 mg tablet 2023 024 [facility] [address], [address] [place], [address], 4 11:08:31 triamcinolo ne acetonide 0.1 % topical cream [address] [facility] [address] [facility] [address], [address] [place], [address], 11:38:48 Patient TargetsNo targets recorded. Patient Instructions Encounter Date Encounter Id Patient Instructions Last Modified By Organization Details Last Modified Time 03/08/2022 [id number] learning about healthy weight [email or web address] Not available 03/08/2022 11:16:19 10/02/2023 [id number] insomnia: care instructions [email or web address] Not available 10/02/2023 11:08:24 learning about healthy weight tgrosser Not available 10/02/2023 11:08:24 high blood pressure: care instructions tgrosser Not available 10/02/2023 11:06:40 learning about high blood pressure tgrosser Not available 10/02/2023 11:06:40 high cholesterol : care instructions tgrosser Not available 10/02/2023 11:06:41 07/16/2024 [id number] allergies: care instructions tgrosser Not available 07/16/2024 10:56:02 learning about healthy weight tgrosser Not available 07/16/2024 10:56:01 11/11/2024 [id number] learning about healthy weight tgrosser Not available 11/11/2024 11:57:40 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 Acute serous otitis media of bilateral ears Referring Physician: Alcon Hare, Family Medicine, Encounter Date: 11/11/2024 Results Created Date Observation Date Name Description Value Unit Range Abnormal Flag Note LastModifiedBy Organization Detail LastModifiedTime 03/08/2003/09/2022 TSH+F REE T4 TSH 3.510 uIU/m L 0.450- 4.500 Not Available [facility] ([facility]) [address] [place], [address], 03/11/2022 12:08:47 03/08/2003/09/2022 TSH+F REE T4 T4,free(dire ct) 1.05 NG/dL 0.82-1 .77 Not Available [facility] ([facility]) [address] [place], [address], 03/11/2022 12:08:47 03/08/2003/09/2022 CBC WITH DIFFE RENTI AL/PL ATELE T WBC 8.2 x10e3 /uL 3.4-10 .8 Not Available [facility] ([facility]) [address] [place], [address], 03/11/2022 12:08:48 03/08/20 22 03/09/2022 CBC WITH DIFFE RENTI AL/PL ATELE T RBC 4.60 x10e6 /uL 4.14-5 .80 Not Available [facility] ([facility]) [address] [place], [address], 03/11/2022 12:08:48 03/08/20 22 03/09/2022 CBC WITH DIFFE RENTI AL/PL ATELE T hemoglobin 15.4 g/dL 13.0-1 7.7 Not Available [facility] ([facility]) [address] [place], [address], 03/11/2022 12:08:48 03/08/20 22 03/09/2022 CBC WITH DIFFE RENTI AL/PL ATELE T hematocrit 44.4 % 37.5-5 1.0 Not Available [facility] ([facility]) [address] [place], [address], 03/11/2022 12:08:48 03/08/20 22 03/09/2022 CBC WITH DIFFE RENTI AL/PL ATELE T MCV 97 fL 79-97 Not Available [facility] ([facility]) [address] [place], [address], 03/11/2022 12:08:48 03/08/20 22 03/09/2022 CBC WITH DIFFE RENTI AL/PL ATELE T MCH 33.5 pg 26.6-3 3.0 above high normal Not Available [facility] ([facility]) [address] [place], [address], 03/11/2022 12:08:48 03/08/20 22 03/09/2022 CBC WITH DIFFE RENTI AL/PL ATELE T MCHC 34.7 g/dL 31.5-3 5.7 Not Available [facility] ([facility]) [address] [facility], [place], [address], 03/11/2022 12:08:48 03/08/20 22 03/09/2022 CBC WITH DIFFE RENTI AL/PL ATELE T RDW 11.7 % 11.6-1 5.4 Not Available [facility] ([facility]) [address] [facility], [place], [address], 03/11/2022 12:08:48 03/08/20 22 03/09/2022 CBC WITH DIFFE RENTI AL/PL ATELE T platelets 241 x10e3 /uL 150-45 0 Not Available [facility] ([facility]) [address] [facility], [place], [address], 03/11/2022 12:08:48 03/08/20 22 03/09/2022 CBC WITH DIFFE RENTI AL/PL ATELE T neutrophils 78 % not estab. Not Available [facility] ([facility]) [address] [facility], [place], [address], 03/11/2022 12:08:48 03/08/20 22 03/09/2022 CBC WITH DIFFE RENTI AL/PL ATELE T lymphs 11 % not estab. Not Available [facility] ([facility]) [address] [facility], [place], [address], 03/11/2022 12:08:48 03/08/20 22 03/09/2022 CBC WITH DIFFE RENTI AL/PL ATELE T monocytes 8 % not estab. Not Available [facility] ([facility]) [address] [facility], [place], [address], 03/11/2022 12:08:48 03/08/20 22 03/09/2022 CBC WITH DIFFE RENTI AL/PL ATELE T eos 2 % not estab. Not Available [facility] ([facility]) [address] [facility], [place], [address], 03/11/2022 12:08:48 03/08/20 22 03/09/2022 CBC WITH DIFFE RENTI AL/PL ATELE T basos 1 % not estab. Not Available [facility] ([facility]) [address] [facility], [place], [address], 03/11/2022 12:08:48 03/08/20 22 03/09/2022 CBC WITH DIFFE RENTI AL/PL ATELE T immature cells NON CATEGORICAL PRESCHOOL TEACHER Not Available [facility] ([facility]) [address] [facility], [place], [address], 03/11/2022 12:08:48 03/08/20 22 03/09/2022 CBC WITH DIFFE RENTI AL/PL ATELE T neutrophils (absolute) 6.5 x10e3 /uL 1.4-7. 0 Not Available [facility] ([facility]) [address] [place], [address], 03/11/2022 12:08:48 03/08/20 22 03/09/2022 CBC WITH DIFFE RENTI AL/PL ATELE T lymphs (absolute) 0.9 x10e3 /uL 0.7-3. 1 Not Available [facility] ([facility]) [address] [place], [address], 03/11/2022 12:08:48 03/08/20 22 03/09/2022 CBC WITH DIFFE RENTI AL/PL ATELE T monocytes(ab solute) 0.6 x10e3 /uL 0.1-0. 9 Not Available [facility] ([facility]) [address] [place], [address], 03/11/2022 12:08:48 03/08/20 22 03/09/2022 CBC WITH DIFFE RENTI AL/PL ATELE T eos (absolute) 0.2 x10e3 /uL 0.0-0. 4 Not Available [facility] ([facility]) [address] [facility], [place], [address], 03/11/2022 12:08:48 03/08/20 22 03/09/2022 CBC WITH DIFFE RENTI AL/PL ATELE T baso (absolute) 0.1 x10e3 /uL 0.0-0. 2 Not Available [facility] ([facility]) [address] [facility], [place], [address], 03/11/2022 12:08:48 03/08/20 22 03/09/2022 CBC WITH DIFFE RENTI AL/PL ATELE T immature granulocytes 0 % not estab. Not Available [facility] ([facility]) [address] [facility], [place], [address], 03/11/2022 12:08:48 03/08/20 22 03/09/2022 CBC WITH DIFFE RENTI AL/PL ATELE T immature grans (abs) 0.0 x10e3 /uL 0.0-0. 1 Not Available [facility] ([facility]) [address] [facility], [place], [address], 03/11/2022 12:08:48 03/08/20 22 03/09/2022 CBC WITH DIFFE RENTI AL/PL ATELE T NRBC NON CATEGORICAL PRESCHOOL TEACHER Not Available [facility] ([facility]) [address] [facility], [place], [address], 03/11/2022 12:08:48 03/08/20 22 03/09/2022 CBC WITH DIFFE RENTI AL/PL ATELE T hematology comments: NON CATEGORICAL PRESCHOOL TEACHER Not Available [facility] ([facility]) [address] [facility], [place], [address], 03/11/2022 12:08:48 03/08/20 22 03/09/2022 COMP. METAB OLIC PANEL (14) glucose 103 mg/dL 65-99 above high normal Not Available [facility] ([facility]) [address] [facility] [place], [address], 03/11/2022 12:08:48 03/08/20 22 03/09/2022 COMP. METAB OLIC PANEL (14) BUN 17 mg/dL 8-27 Not Available [facility] ([facility]) [address] [place], [address], 03/11/2022 12:08:48 03/08/20 22 03/09/2022 COMP. METAB OLIC PANEL (14) creatinine 0.95 mg/dL 0.76-1 .27 Not Available [facility] ([facility]) [address] [facility] [place], [address], 03/11/2022 12:08:48 03/08/20 22 03/09/2022 COMP. METAB OLIC PANEL (14) eGFR 83 mL/mi n/1.7 3 >59 Not Available [facility] ([facility]) [address] [facility] [place], [address], 03/11/2022 12:08:48 03/08/20 22 03/09/2022 COMP. METAB OLIC PANEL (14) BUN/creatini ne ratio 18 10-24 Not Available [facility] ([facility]) [address] [facility] [place], [address], 03/11/2022 12:08:48 03/08/20 22 03/09/2022 COMP. METAB OLIC PANEL (14) sodium 141 mmol/ L 134-14 4 Not Available [facility] ([facility]) [address] [facility] [place], [address], 03/11/2022 12:08:48 03/08/20 22 03/09/2022 COMP. METAB OLIC PANEL (14) potassium 5.5 mmol/ L 3.5-5. 2 above high normal Not Available [facility] ([facility]) [address] [facility] [place], [address], 03/11/2022 12:08:48 03/08/20 22 03/09/2022 COMP. METAB OLIC PANEL (14) chloride 104 mmol/ L 96-106 Not Available [facility] ([facility]) [address] [place], [address], 03/11/2022 12:08:48 03/08/20 22 03/09/2022 COMP. METAB OLIC PANEL (14) carbon dioxide, total 25 mmol/ L 20-29 Not Available [facility] ([facility]) [address] [place], [address], 03/11/2022 12:08:48 03/08/20 22 03/09/2022 COMP. METAB OLIC PANEL (14) calcium 9.7 mg/dL 8.6-10 .2 Not Available [facility] ([facility]) [address] [place], [address], 03/11/2022 12:08:48 03/08/20 22 03/09/2022 COMP. METAB OLIC PANEL (14) protein, total 7.0 g/dL 6.0-8. 5 Not Available [facility] ([facility]) [address] [place], [address], 03/11/2022 12:08:48 03/08/20 22 03/09/2022 COMP. METAB OLIC PANEL (14) albumin 4.2 g/dL 3.7-4. 7 Not Available [facility] ([facility]) [address] [place], [address], 03/11/2022 12:08:48 03/08/20 22 03/09/2022 COMP. METAB OLIC PANEL (14) globulin, total 2.8 g/dL 1.5-4. 5 Not Available [facility] ([facility]) [address] [place], [address], 03/11/2022 12:08:48 03/08/20 22 03/09/2022 COMP. METAB OLIC PANEL (14) A/G ratio 1.5 1.2-2. 2 Not Available [facility] ([facility]) [address] [place], [address], 03/11/2022 12:08:48 03/08/20 22 03/09/2022 COMP. METAB OLIC PANEL (14) bilirubin, total 0.7 mg/dL 0.0-1. 2 Not Available [facility] ([facility]) [address] [place], [address], 03/11/2022 12:08:48 03/08/20 22 03/09/2022 COMP. METAB OLIC PANEL (14) alkaline phosphatase 127 IU/L 44-121 above high normal Not Available [facility] ([facility]) [address] [place], [address], 03/11/2022 12:08:48 03/08/20 22 03/09/2022 COMP. METAB OLIC PANEL (14) AST (SGOT) 17 IU/L 0-40 Not Available [facility] ([facility]) [address] [place], [address], 03/11/2022 12:08:48 03/08/20 22 03/09/2022 COMP. METAB OLIC PANEL (14) ALT (SGPT) 13 IU/L 0-44 Not Available [facility] ([facility]) [address] [place], [address], 03/11/2022 12:08:48 03/08/20 22 03/09/2022 PROST ATE-S PECIF IC AG prostate specific Ag 8.8 NG/mL 0.0-4. 0 above high normal Anabella ECLIA metho dolog y. Accor ding to the Ameri can Urolo gical Assoc iatio n, Serum PSA shoul d decre ase and remai n at undet ectab le level s after radic al prost atect gerber. The AUA defin es bioch emica l recur rence as an initi al PSA value 0.2 ng/mL or great er follo wed by a subse quent confi rmato ry PSA value 0.2 ng/mL or great er. Value s obtai fahad with diffe rent assay metho ds or kits canno t be used inter bone eably . Resul ts canno t be inter prete d as absol [place] evide nce of the prese nce or absen ce of aspirus [facility] kassidy salazar se. Not Available [facility] ([facility]) [address] [facility], [place], [address], 03/11/2022 12:08:49 03/08/20 22 03/09/2022 VITAM IN D, 25-HY DROXY vitamin D, 25-hydroxy 36.0 NG/mL 30.0-1 00.0 Vitam in D defic iency has been defin ed by the Insti tute of Medic ine and an Endoc rine Socie ty pract ice guide line as a level of serum 25-OH vitam in D less than 20 ng/mL (1,2) . The Endoc rine Socie ty went on to furth er defin e vitam in D insuf ficie ncy as a level betwe en 21 and 29 ng/mL (2). 1. IOM (Inst itute of Medic ine). 2009. Dieta ry refer ence intak es for calci um and D. Hilario calles [place]: The Natformerly [facility] Acade [facility] Press . 2. Gabe escalera [place], Cyn guerrero [place], Yolanda off-F errar i ROBERTS, et al. Evalu ation , treat ment, and preve ntion of vitam in D defic iency : an Endoc rine Socie ty clini salo pract ice guide line. JCEM. 2010; 96(7) :1911 -30. Not Available [facility] ([facility]) [address] [facility], [place], [address], 03/11/2022 12:08:50 03/08/20 22 03/11/2022 DEEP W/REF MICKEY IF POSIT ELVIA DEEP direct Negati ve negati ve Not Available [facility] ([facility]) [address] [place], [address], 03/11/2022 12:08:51 03/08/20 22 03/09/2022 VITAM IN B12 vitamin B12 312 pg/mL 232-12 45 Not Available [facility] ([facility]) [address] [place], [address], 03/11/2022 12:08:52 03/08/20 22 03/09/2022 MAGNE SIUM magnesium 1.9 mg/dL 1.6-2. 3 Not Available [facility] ([facility]) [address] [facility] [place], [address], 03/11/2022 12:08:52 06/18/20 22 06/19/2022 GLOM FILT RATE, ESTIM ATED creatinine 1.15 mg/dL 0.76-1 .27 Not Available [facility] ([facility]) [address] [facility] [place], [address], 06/19/2022 06:16:59 06/18/20 22 06/19/2022 GLOM FILT RATE, ESTIM ATED eGFR 66 mL/mi n/1.7 3 >59 Not Available [facility] ([facility]) [address] [facility] [place], [address], 06/19/2022 06:16:59 10/02/19 24 10/03/2023 CBC WITH DIFFE RENTI AL/PL ATELE T WBC 7.9 x10e3 /uL 3.4-10 .8 Not Available [facility] ([facility]) [address] [facility] [place], [address], 10/03/2023 06:18:06 10/02/19 24 10/03/2023 CBC WITH DIFFE RENTI AL/PL ATELE T RBC 4.56 x10e6 /uL 4.14-5 .80 Not Available [facility] ([facility]) [address] [facility], [place], [address], 10/03/2023 06:18:06 10/02/19 24 10/03/2023 CBC WITH DIFFE RENTI AL/PL ATELE T hemoglobin 15.6 g/dL 13.0-1 7.7 Not Available [facility] ([facility]) [address] [place], [address], 10/03/2023 06:18:06 10/02/1910/03/2023 CBC WITH DIFFE RENTI AL/PL ATELE T hematocrit 43.6 % 37.5-5 1.0 Not Available [facility] ([facility]) [address] [place], [address], 10/03/2023 06:18:06 10/02/19 24 10/03/2023 CBC WITH DIFFE RENTI AL/PL ATELE T MCV 96 fL 79-97 Not Available [facility] ([facility]) [address] [place], [address], 10/03/2023 06:18:06 10/02/1910/03/2023 CBC WITH DIFFE RENTI AL/PL ATELE T MCH 34.2 pg 26.6-3 3.0 above high normal Not Available [facility] ([facility]) [address] [place], [address], 10/03/2023 06:18:06 10/02/1910/03/2023 CBC WITH DIFFE RENTI AL/PL ATELE T MCHC 35.8 g/dL 31.5-3 5.7 above high normal Not Available [facility] ([facility]) [address] [place], [address], 10/03/2023 06:18:06 10/02/1910/03/2023 CBC WITH DIFFE RENTI AL/PL ATELE T RDW 12.3 % 11.6-1 5.4 Not Available [facility] ([facility]) [address] [place], [address], 10/03/2023 06:18:06 10/02/19 24 10/03/2023 CBC WITH DIFFE RENTI AL/PL ATELE T platelets 216 x10e3 /uL 150-45 0 Not Available [facility] ([facility]) [address] [facility], [place], [address], 10/03/2023 06:18:06 10/02/19 24 10/03/2023 CBC WITH DIFFE RENTI AL/PL ATELE T neutrophils 76 % not estab. Not Available [facility] ([facility]) [address] [facility], [place], [address], 10/03/2023 06:18:06 10/02/19 24 10/03/2023 CBC WITH DIFFE RENTI AL/PL ATELE T lymphs 12 % not estab. Not Available [facility] ([facility]) [address] [facility], [place], [address], 10/03/2023 06:18:06 10/02/19 24 10/03/2023 CBC WITH DIFFE RENTI AL/PL ATELE T monocytes 8 % not estab. Not Available [facility] ([facility]) [address] [facility], [place], [address], 10/03/2023 06:18:06 10/02/19 24 10/03/2023 CBC WITH DIFFE RENTI AL/PL ATELE T eos 2 % not estab. Not Available [facility] ([facility]) [address] [facility], [place], [address], 10/03/2023 06:18:06 10/02/19 24 10/03/2023 CBC WITH DIFFE RENTI AL/PL ATELE T basos 1 % not estab. Not Available [facility] ([facility]) [address] [facility], [place], [address], 10/03/2023 06:18:06 10/02/19 24 10/03/2023 CBC WITH DIFFE RENTI AL/PL ATELE T immature cells NON CATEGORICAL PRESCHOOL TEACHER Not Available [facility] ([facility]) [address] [place], [address], 10/03/2023 06:18:06 10/02/19 24 10/03/2023 CBC WITH DIFFE RENTI AL/PL ATELE T neutrophils (absolute) 6.1 x10e3 /uL 1.4-7. 0 Not Available [facility] ([facility]) [address] [place], [address], 10/03/2023 06:18:06 10/02/19 24 10/03/2023 CBC WITH DIFFE RENTI AL/PL ATELE T lymphs (absolute) 1.0 x10e3 /uL 0.7-3. 1 Not Available [facility] ([facility]) [address] [place], [address], 10/03/2023 06:18:06 10/02/1910/03/2023 CBC WITH DIFFE RENTI AL/PL ATELE T monocytes(ab solute) 0.6 x10e3 /uL 0.1-0. 9 Not Available [facility] ([facility]) [address] [place], [address], 10/03/2023 06:18:06 10/02/1910/03/2023 CBC WITH DIFFE RENTI AL/PL ATELE T eos (absolute) 0.1 x10e3 /uL 0.0-0. 4 Not Available [facility] ([facility]) [address] [place], [address], 10/03/2023 06:18:06 10/02/1910/03/2023 CBC WITH DIFFE RENTI AL/PL ATELE T baso (absolute) 0.1 x10e3 /uL 0.0-0. 2 Not Available [facility] ([facility]) [address] [place], [address], 10/03/2023 06:18:06 10/02/19 24 10/03/2023 CBC WITH DIFFE RENTI AL/PL ATELE T immature granulocytes 1 % not estab. Not Available [facility] ([facility]) [address] [facility], [place], [address], 10/03/2023 06:18:06 10/02/19 24 10/03/2023 CBC WITH DIFFE RENTI AL/PL ATELE T immature grans (abs) 0.1 x10e3 /uL 0.0-0. 1 Not Available [facility] ([facility]) [address] [facility], [place], [address], 10/03/2023 06:18:06 10/02/19 24 10/03/2023 CBC WITH DIFFE RENTI AL/PL ATELE T NRBC NON CATEGORICAL PRESCHOOL TEACHER Not Available [facility] ([facility]) [address] [facility], [place], [address], 10/03/2023 06:18:06 10/02/19 24 10/03/2023 CBC WITH DIFFE RENTI AL/PL ATELE T hematology comments: NON CATEGORICAL PRESCHOOL TEACHER Not Available [facility] ([facility]) [address] [facility], [place], [address], 10/03/2023 06:18:06 10/02/19 24 10/03/2023 COMP. METAB OLIC PANEL (14) glucose 114 mg/dL 70-99 above high normal Not Available [facility] ([facility]) [address] [facility], [place], [address], 10/03/2023 06:18:06 10/02/19 24 10/03/2023 COMP. METAB OLIC PANEL (14) BUN 16 mg/dL 8-27 Not Available [facility] ([facility]) [address] [facility], [place], [address], 10/03/2023 06:18:06 10/02/19 24 10/03/2023 COMP. METAB OLIC PANEL (14) creatinine 0.96 mg/dL 0.76-1 .27 Not Available [facility] ([facility]) [address], [place], [address], 10/03/2023 06:18:06 10/02/19 24 10/03/2023 COMP. METAB OLIC PANEL (14) eGFR 82 mL/mi n/1.7 3 >59 Not Available [facility] ([facility]) [address] [place], [address], 10/03/2023 06:18:06 10/02/19 24 10/03/2023 COMP. METAB OLIC PANEL (14) BUN/creatini ne ratio 17 10-24 Not Available [facility] ([facility]) [address] [facility], [place], [address], 10/03/2023 06:18:06 10/02/19 24 10/03/2023 COMP. METAB OLIC PANEL (14) sodium 143 mmol/ L 134-14 4 Not Available [facility] ([facility]) [address], [place], [address], 10/03/2023 06:18:06 10/02/19 24 10/03/2023 COMP. METAB OLIC PANEL (14) potassium 5.3 mmol/ L 3.5-5. 2 above high normal Not Available [facility] ([place] [facility]) [address] [facility], [place], [address], 10/03/2023 06:18:06 10/02/19 24 10/03/2023 COMP. METAB OLIC PANEL (14) chloride 107 mmol/ L 96-106 above high normal Not Available [facility] ([place] [facility]) [address] [facility] [place], [address], 10/03/2023 06:18:06 10/02/19 24 10/03/2023 COMP. METAB OLIC PANEL (14) carbon dioxide, total 24 mmol/ L 20-29 Not Available [facility] ([place] [facility]) [address] [place], [address], 10/03/2023 06:18:06 10/02/19 24 10/03/2023 COMP. METAB OLIC PANEL (14) calcium 9.4 mg/dL 8.6-10 .2 Not Available [facility] ([facility]) [address], [place], [address], 10/03/2023 06:18:06 10/02/19 24 10/03/2023 COMP. METAB OLIC PANEL (14) protein, total 6.9 g/dL 6.0-8. 5 Not Available [facility] ([facility]) [address] [place], [address], 10/03/2023 06:18:06 10/02/19 24 10/03/2023 COMP. METAB OLIC PANEL (14) albumin 4.5 g/dL 3.8-4. 8 Not Available [facility] ([facility]) [address], [place], [address], 10/03/2023 06:18:06 10/02/19 24 10/03/2023 COMP. METAB OLIC PANEL (14) globulin, total 2.4 g/dL 1.5-4. 5 Not Available [facility] ([facility]) [address] [place], [address], 10/03/2023 06:18:06 10/02/19 24 10/03/2023 COMP. METAB OLIC PANEL (14) A/G ratio 1.9 1.2-2. 2 Not Available [facility] ([facility]) [address] [place], [address], 10/03/2023 06:18:06 10/02/19 24 10/03/2023 COMP. METAB OLIC PANEL (14) bilirubin, total 0.6 mg/dL 0.0-1. 2 Not Available [facility] ([facility]) [address] [facility], [place], [address], 10/03/2023 06:18:06 10/02/19 24 10/03/2023 COMP. METAB OLIC PANEL (14) alkaline phosphatase 105 IU/L 44-121 Not Available [facility] ([facility]) [address] [place], [address], 10/03/2023 06:18:06 10/02/19 24 10/03/2023 COMP. METAB OLIC PANEL (14) AST (SGOT) 20 IU/L 0-40 Not Available [facility] ([facility]) [address] [place], [address], 10/03/2023 06:18:06 10/02/19 24 10/03/2023 COMP. METAB OLIC PANEL (14) ALT (SGPT) 22 IU/L 0-44 Not Available [facility] ([facility]) [address] [place], [address], 10/03/2023 06:18:06 10/02/19 24 10/03/2023 LIPID PANEL cholesterol, total 142 mg/dL 100-19 9 Not Available [facility] ([facility]) [address] [facility] [place], [address], 10/03/2023 06:18:07 10/02/19 24 10/03/2023 LIPID PANEL triglyceride s 91 mg/dL 0-149 Not Available [facility] ([facility]) [address] [place], [address], 10/03/2023 06:18:07 10/02/19 24 10/03/2023 LIPID PANEL HDL cholesterol 44 mg/dL >39 Not Available [facility] ([facility]) [address] [facility] [place], [address], 10/03/2023 06:18:07 10/02/19 24 10/03/2023 LIPID PANEL VLDL cholesterol salo 17 mg/dL 5-40 Not Available [facility] ([facility]) [address] [facility], [place], [address], 10/03/2023 06:18:07 10/02/19 24 10/03/2023 LIPID PANEL LDL chol calc ([facility]) 81 mg/dL 0-99 Not Available [facility] ([facility]) [address] [facility], [place], [address], 10/03/2023 06:18:07 10/02/19 24 10/03/2023 LIPID PANEL comment: NON CATEG[employer]ICAL PRES[employer]OL TE[employer]ER Not Available [facility] ([facility]) [address] [facility], [place], [address], 10/03/2023 06:18:07 03/18/20 22 01/16/2022 XR, chest , 2 view No observ ation record ed. BARCODE Not Available 2021 13:42:15 04/02/20 22 04/02/2022 CT, chest , w/ contr ast [facility] Name: VESNA JACKSON [facility] Phys: Yanet [place]illa MD, [place] [address] : 1945 Age: 76 Sex: M Acct: [id number] Loc: G.CT PHONE #: Exam Date: 2021 Status : REG CLI FAX #: Rad# [id number] Unit# [id number] Admit Date: 2021 EXAMS: CPT CODE: [id number] CT CHEST W/CONT RAST 45857 CLINIC AL INFORM ATION: Follow -up indete rminat e pulmon tristan nodule TECHNI QUE: Axial multis lice enhanc ed imagin g of the chest was perfor med as well as 2-D recons tructi ons in the echevarria l plane Automa fermín exposu re contro l was utiliz ed to reduce patien t radiat ion dose. COMPAR FRITZ: Portab le chest x-ray 2 FINDIN GS: Imagin g of the low neck and the axilla is unrema rkable . Heart mildly enlarg ed. Echevarria ry artery calcif icatio n and stenti ng is noted. Border line enlarg ed right paratr acheal , AP window and bilate ral hilar lympha denopa thy as well as granul omatou s adenop athy. Lung imagin g degrad ed by respir atory motion . Mild mosaic attenu ation of the lungs withou t focal alveol ar consol idatio n. There are scatte red granul omata in the bilate ral lungs. 3 mm noncal cified pulmon tristan nodule right upper lobe image 23. 4 mm pleura l-base d nodule in the left lower lobe image 70. Noncal cified 4 mm nodule associ ated with the left major fissur e on image 33. Limite d imagin g upper abdome n notabl e for hepati c steato sis cholec ystect gerber with subtle residu al biliar y dilata tion but no gross choled ocholi thiasi s. Spleen mildly enlarg ed at about 13 cm long axis. There is multif ocal cortic al scarri ng on the right kidney as well as a 4 mm nonobs tructi ng stone in the upper pole. There are parape lvic and cortic al cysts on the left kidney partia lly imaged , requir ing no furthe r workup . 3 mm nonobs tructi ng stone upper pole left kidney . No aggres sive osseou s lesion s. IMPRES EDWIGE: 1. Cardia c enlarg ement with echevarria ry artery calcif icatio n and stenti ng. 2. Mild mosaic attenu ation of the lungs sugges ting chroni c obstru ctive small airway s diseas e. 3. Border line enlarg ed medias tinal and hilar lympha denopa thy as well as 4 mm or smalle r noncal cified pulmon tristan nodule s. These are indete rminat e. 4. Calcif ied granul omata granul omatou s nodes requir ing no furthe r PAGE 1 Signed Report (JIHAN NUED) [facility] Name: VESNA JACKSON [facility] [address] Phys: Yanet maravilla MD, [place] [address] : 1945 Age: 76 Sex: M Acct: [id number] Loc: G.CT PHONE #: Exam Date: 2021 Status : REG CLI FAX #: [phone] Rad# [id number] Unit# [id number] Admit Date: 2021 EXAMS: CPT CODE: [id number] CT CHEST W/CONT RAST 81801 workup . 5. Hepati c steato sis and border line spleno megaly . 6. Bilate ral nonobs tructi ng nephro lithia sis *Recom mend follow -up standa rd protoc ol enhanc ed CT the chest in 3 months to reasse ss the indete rminat e lympha denopa thy and pulmon tristan nodula rity. NOTE: Recomm endati ons for follow up/man agemen t of incide ntal pulmon tristan nodule s will be based on the Fleisc hner [employer]et y criter ia. Any incide ntally noted liver lesion s equal to or less than 5 mm, cystic lesion s in the kidney s less than 1 cm, and/or adrena l lesion s equal to or less than 1 cm, genera lly are consid ered highly likely to be benign and no additi onal evalua tion is recomm ended, unless specif ically mentio fahad in the impres edwige. Electr onical ly Signed by Mirella Aquino on 2021 at 1115 Report ed and signed by: ARIANA Aquino M.D. CC: Quin maravilla Dictat ed Date/T sami: 2021 (1115) Techno logist : YASEMIN Aquino RT(R)( CT) Transc ribed Date/T sami: 2021 (1115) Transc riptio nist: DR.HAR SONIYA Pacheco onic Signat ure Date/T sami: 2021 (1115) Capri d Date/T sami: 2021 (1136) BATCH NO: N/A PAGE 2 Signed Report CC'ed Logic: Orderi ng Provid er: GROSSE R TIMOTH Y Attend ing Provid er: YANET ROBERTS Y Referr ing Provid er: YANET ROBERTS Y Consul ting Provid er: YANET ROBERTS Y [address], [place], [address], 04/03/2022 15:56:54 06/24/[address] 22 [address], chest , w/ contr ast No observ ation record ed. [address], [place], [address], 06/27/2022 17:47:26 11/28/19 24 11/27/2023 XR, chest , 2 view No observ ation record ed. [facility] [address], [place], [address], 11/28/2023 08:42:50 12/08/19 24 12/05/2023 trans -thor acic echoc ardio gram (TTE) (PROC ) No observ ation record ed. [facility] [address], [place], [address], 12/10/2023 08:42:24 05/26/20 25 05/26/2025 XR, chest , 2 view No observ ation record ed. [facility] [address], [place], [address], 05/26/2025 15:12:23 05/26/20 25 05/26/2025 imagi ng/di agnos tic resul t No observ ation record ed. [address], [place], [address], 05/27/2025 10:46:00 05/26/20 25 05/26/2025 imagi ng/di agnos tic resul t No observ ation record ed. [address], [place], [address], 05/27/2025 10:45:52 05/26/20 25 05/26/2025 imagi ng/di agnos tic resul t No observ ation record ed. [email or web address] [facility] [address], [place], [address], 05/27/2025 10:45:24 05/27/20 25 05/27/2025 XR, chest , 2 view No observ ation record ed. [email or web address] [facility] [address], [place], [address], 05/31/2025 10:16:47 Result Notes Documentation Provider Name and Address Organization Details Recorded Time Ct, Chest, W/ Contrast : [facility] VESNA JACKSON [facility] Phys: Parveen OCHOA, [place] [address] : 1945 Age: 76 Sex: M Acct: [id number] Loc: G.CT PHONE #: Exam Date: 04/02/2022 Status: REG CLI FAX #: Rad# [id number] Unit# [id number] Admit Date: 04/02/2022 EXAMS: CPT CODE: [id number] CT CHEST W/CONTRAST 43389 CLINICAL INFORMATION: Follow-up indeterminate pulmonary nodule TECHNIQUE: Axial multislice enhanced imaging of the chest was performed as well as 2-D reconstructions in the coronal plane Automated exposure control was utilized to reduce patient radiation dose. COMPARISON: Portable chest x-ray 01/16/22 FINDINGS: Imaging of the low neck and the axilla is unremarkable. Heart mildly enlarged. Coronary artery calcification and stenting is noted. Borderline enlarged right paratracheal, AP window and bilateral hilar lymphadenopathy as well as granulomatous adenopathy. Lung imaging degraded by respiratory motion. Mild mosaic attenuation of the lungs without focal alveolar consolidation. There are scattered granulomata in the bilateral lungs. 3 mm noncalcified pulmonary nodule right upper lobe image 23. 4 mm pleural-based nodule in the left lower lobe image 70. Noncalcified 4 mm nodule associated with the left major fissure on image 33. Limited imaging upper abdomen notable for hepatic steatosis cholecystectomy with subtle residual biliary dilatation but no gross choledocholithiasis. Spleen mildly enlarged at about 13 cm long axis. There is multifocal cortical scarring on the right kidney as well as a 4 mm nonobstructing stone in the upper pole. There are parapelvic and cortical cysts on the left kidney partially imaged, requiring no further workup. 3 mm nonobstructing stone upper pole left kidney. No aggressive osseous lesions. IMPRESSION: 1. Cardiac enlargement with coronary artery calcification and stenting. 2. Mild mosaic attenuation of the lungs suggesting chronic obstructive small airways disease. 3. Borderline enlarged mediastinal and hilar lymphadenopathy as well as 4 mm or smaller noncalcified pulmonary nodules. These are indeterminate. 4. Calcified granulomata granulomatous nodes requiring no further PAGE 1 Signed Report (CONTINUED) [facility] Name: MANUELVESNA L [address] [place] [address] Phys: Parveen OCHOA, [place] [id number] : 1945 Age: 76 Sex: M Acct: [id number] Loc: G.CT PHONE #: Exam Date: 04/02/2022 Status: REG CLI FAX #: Rad# [id number] Unit# [id number] Admit Date: 04/02/2022 EXAMS: CPT CODE: [id number] CT CHEST W/CONTRAST 76714 workup. 5. Hepatic steatosis and borderline splenomegaly. 6. Bilateral nonobstructing nephrolithiasis *Recommend follow-up standard protocol enhanced CT the chest in 3 months to reassess the indeterminate lymphadenopathy and pulmonary nodularity. NOTE: Recommendations for follow up/management of incidental pulmonary nodules will be based on the Fleischner Society criteria. Any incidentally noted liver lesions equal to or less than 5 mm, cystic lesions in the kidneys less than 1 cm, and/or adrenal lesions equal to or less than 1 cm, generally are considered highly likely to be benign and no additional evaluation is recommended, unless specifically mentioned in the impression. at 1115 Reported and signed by: MARIA ESTHER CALLE M.D. CC: [place] Dictated Date/Time: 04/02/2022 (1115) Technologist: YASEMIN ARRIAGA RT(R)(CT) Transcribed Date/Time: 04/02/2022 (1115) Horologist Apprentice: Electronic Signature Date/Time: 04/02/2022 (1115) Printed Date/Time: 04/02/2022 (1136) BATCH NO: N/A PAGE 2 Signed Report CC'ed Logic: Ordering Provider: PARVEEN RON Attending Provider: PARVEEN RON Referring Provider: PARVEEN RON Consulting Provider: PARVEEN Sullivan Soraida torres, [place] - [facility] 04/03/2022 15:56:54 Problems Name Problem SNOMED Code Status Onset Date Resolution Date Notes Provider Name and Address Organization Details Recorded Time Ankylosis of joint 158516554 Active 2016 Chery torres, [place] - [facility] 7 14:22:45 Hyperlipide mulu 82156092 Active 2016 Chery torres, [place] - [facility] 7 14:22:54 Essential hypertensio n 22673041 Active 2016 Chery torres, [place] - [facility] 7 14:23:03 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 Procedures Surgical History Date Name Laterality Status Provider Name and Address Organization Details Recorded Time 06/15/20 21 Medication Reconcilliation completed Chery Levy [place] - [facility] 06/15/2021 09:30:27 05/17/20 21 Medication Reconcilliation completed Chery [place] - [facility] 05/17/2021 09:29:53 04/21/20 20 Systolic B/P less than 130 mm Hg completed Chery [place] - [facility] 04/21/2020 13:47:18 04/21/20 20 Diastolic B/P less than 80 mm Hg completed Chery [place] - [facility] 04/21/2020 13:47:22 04/21/20 20 Medication Reconcilliation completed Chery Levy [place] - [facility] 04/21/2020 13:41:38 03/31/20 19 Colonoscopy completed Cristina Raman RN [address], [place], [address], [place] - [facility] 06/01/2019 16:37:49 opening of chest and insertion of pleural tube drain completed Chery [place] - [facility] 06/15/2021 09:34:33 insertion of carotid artery stent completed Chery [place] - [facility] 03/08/2022 10:54:07 cardiac catheterization completed Chery [place] - [facility] 03/08/2022 10:54:25 Cardiac Cath completed Soila Yury [place] - [facility] 01/02/2018 15:11:06 Cholecystectomy, laparoscopic completed Chery BURNETT - [facility] 11/06/2016 14:27:27 Hip Replacement completed Chery BURNETT - [facility] 11/06/2016 14:27:38 Tonsillectomy completed Chery BURNETT - [facility] 11/06/2016 14:27:46 Imaging Results None recorded. Procedure Notes None recorded. Medical Equipment None Reported. Allergies Allergen ID Allergen Name Allergen Category Reaction Reaction Severity Criticality Documentation Date Start Date Code Code System Note Provider Name and Address Organization Details Recorded Time 73659 Cipro medicatio n Not available Not available Not available 07/05/2016201256 3 RxNorm React ion: Left arm swoll en; Not Available [facility] 6 08:57:05 80491 Substance with sulfonami de structure and antibacte rial mechanism of action (substanc e) medicatio n Not available Not available Not available 07/05/20162007 51303 8003 SNOMED React ion: Mouth sores ; Comme nt: Sulfo namid es; Not Available [facility] 6 08:57:06 Medications Name Sig Start Date Stop Date Status Note LastModified by Organization Details LastModified Time eq mucus relf d 120-1200m g tab TAKE 1 TABLET BY MOUTH EVERY 12 HOURS active Not Available Not Available No t Available amoxicill in 500 mg capsule TAKE 1 CAPSULE BY MOUTH THREE TIMES DAILY active Not Available Not Available No t Available atorvasta tin 40 mg tablet TAKE 1 TABLET BY MOUTH ONCE DAILY active Not Available Not Available No t Available Rhinocort Aqua 32 mcg/actua tion nasal spray 1 sniff bilat bid 02/21 completed Rhinocor t Aqua 32 mcg/actu ation nasal spray,no n-aeroso l;Prescr jefe Status: Prescrib ed on: 01/05/20 16 10:09AM; Disconti nued Status: Disconti nued on: 02/22/20 16 2:14PM;U ser: grossert ;Est. Completi on: 03/05/20 16;Indic ation: Acute maxillar y sinusiti s, recurren ce not specifie d - (461.0); Pharmacy Verified : 01/05/20 16 10:09AM Not Available Not Available Not Available atorvasta tin 20 mg tablet TAKE 1 TABLET BY MOUTH ONCE DAILY FOR CHOLESTE ROL 07/16 completed Not Available Not Available Not Available clindamyc in HCl 300 mg capsule take 1 capsule (300 mg) by oral route every 6 hours 03/24 completed clindamy mercedes HCl 300 mg oral capsule; Prescrib e Status: Prescrib ed on: 05/20/20 13 2:42PM;D iscontin ued Status: Disconti nued on: 03/24/20 14 5:05PM;U ser: strouba; Indicati on: [employer] e Anaerobi c Infectio n - (12.6869 35);Phar macBarrieeri fied: 05/20/20 13 2:42PM Not Available Not Available Not Available citalopra m 40 mg tablet take 1 tablet (40 mg) by oral route once daily 10/02 completed citalopr am 40 mg oral tablet;R ecorded Status: Recorded on: 02/17/20 15 3:36PM;U ser: haym Not Available Not Available Not Available trazodone 50 mg tablet TAKE 1 TO 3 TABLETS BY MOUTH AT BEDTIME active Not Available Not Available No t Available azithromy mercedes 250 mg tablet TAKE 2 TABLETS BY MOUTH ON DAY 1, AND THEN TAKE 1 TABLET BY MOUTH ONCE A DAY ON DAY 2 THROUGH DAY 5 10/02 completed Not Available Not Available Not Available aspirin 325 mg tablet qd prn 02/16 completed aspirin 325 mg oral tablet;R ecorded Status: Recorded on: 07/02/20 08 10:05PM; Disconti nued Status: Disconti nued on: 02/17/20 15 3:33PM;U ser: bishopk Not Available Not Available Not Available ibuprofen 800 mg tablet take 1 tablet by oral route Q8H prn 02/28 completed ibuprofe n 800 mg oral tablet;R ecorded Status: Recorded on: 07/02/20 10 1:14PM;D iscontin ued Status: Disconti nued on: 02/29/20 11 1:19PM;U ser: gillisa; Indicati on: Pain - (16.7809 00);Prin fermín: 07/02/20 10 Not Available Not Available Not Available hydrochlo rothiazid e 50 mg tablet TAKE 1 TABLET BY MOUTH ONCE DAILY IN THE MORNING 11/11 completed Not Available Not Available Not Available methadone 10 mg tablet take 1 tablet by oral route every 12 hours as needed 11/11 completed methadon e 10 mg oral tablet;R ecorded Status: Recorded on: 03/24/20 14 5:10PM;U ser: haym Not Available Not Available Not Available lisinopri l 20 mg tablet TAKE 1 TABLET BY MOUTH TWICE DAILY 11/11 completed Not Available Not Available Not Available clopidogr el 75 mg tablet TAKE 1 TABLET BY MOUTH ONCE DAILY active Not Available Not Available No t Available fexofenad ine 180 mg tablet TAKE 1 TABLET BY MOUTH ONCE DAILY 11/11 completed Not Available Not Available Not Available aspirin 81 mg tablet,de layed release take 1 tablet (81 mg) by oral route once daily 10/02 completed aspirin 81 mg oral tablet,d elayed release (DR/EC); Recorded Status: Recorded on: 03/24/20 14 5:05PM;U ser: haym Not Available Not Available Not Available triamcino lone acetonide 0.1 % topical cream APPLY A THIN LAYER TO THE AFFECTED AREA(S) BY TOPICAL ROUTE 2 TIMES PER DAY PRN 11/11 completed Not Available Not Available Not Available bisoprolo l fumarate 5 mg tablet TAKE 0.5 (ONE HALF) TABLET BY MOUTH ONCE DAILY 11/11 completed Not Available Not Available Not Available amoxicill in 875 mg tablet take 1 tablet (875 mg) by oral route every 12 hours for 10 days 05/20 completed amoxicil verna 875 mg oral tablet;R ecorded Status: Recorded on: 10/05/19 13 2:35PM;D iscontin ued Status: Disconti nued on: 05/20/20 13 2:08PM;U ser: strouba; Est. Completi on: 10/15/19 13;Print ed: 10/05/19 13 Not Available Not Available Not Available tamsulosi n 0.4 mg capsule TAKE 1 CAPSULE BY MOUTH TWICE DAILY active Not Available Not Available No t Available Flagyl 500 mg tablet Take 1 tablet every 6 hours by oral route. 01/23 completed Not Available Not Available Not Available cephalexi n 500 mg capsule TAKE 1 CAPSULE BY MOUTH TWICE DAILY AT 9 AM AND 9 PM 10/02 completed Not Available Not Available Not Available pantopraz ole 40 mg tablet,de layed release TAKE 1 TABLET BY MOUTH ONCE DAILY active Not Available Not Available No t Available erythromy mercedes 5 mg/gram (0.5 %) eye ointment apply 1 cm ribbon into the lower conjunct ival sac in the right eye by ophthalm ic route once daily 03/24 completed erythrom ycin 5 mg/gram (0.5 %) ophthalm ic ointment ;Prescri be Status: Prescrib ed on: 05/20/20 13 2:42PM;D iscontin ued Status: Disconti nued on: 03/24/20 14 5:05PM;U ser: strouba; Indicati on: Bacteria l Conjunct ivitis - (06.3723 );Phar macyVeri fied: 05/20/20 13 2:42PM Not Available Not Available Not Available lisinopri l 10 mg tablet 1/2 po qd 01/23 completed lisinopr il 10 mg oral tablet;R ecorded Status: Recorded on: 07/02/20 08 10:03PM; User: ortiz Not Available Not Available Not Available indometha mercedes 25 mg capsule take 1 capsule by oral route daily as needed 02/16 completed indometh acin 25 mg oral capsule; Recorded Status: Recorded on: 03/24/20 14 5:10PM;D iscontin ued Status: Disconti nued on: 02/17/20 15 3:33PM;U ser: haym Not Available Not Available Not Available cyanocoba bart (vit B-12) 1,000 mcg sublingua l tablet Place 1 tablet every day by sublingu al route for 30 days. 07/16 completed Not Available Not Available Not Available furosemid e 20 mg tablet TAKE 1 TABLET BY MOUTH ONCE DAILY 11/11 completed Not Available Not Available Not Available Levaquin 500 mg tablet take 1 tablet (500 mg) by oral route once daily for 10 days 02/21 completed Levaquin 500 mg oral tablet;P rescribe Status: Prescrib ed on: 01/05/20 16 10:09AM; Disconti nued Status: Disconti nued on: 02/22/20 16 2:14PM;U ser: grossert ;Est. Completi on: 02/14/20 16;Indic ation: Acute Bacteria l Maxillar y Sinusiti s - (08.4610 00);Phar macyVeri fied: 01/05/20 16 10:09AM Not Available Not Available Not Available Cortispor in-TC 3.3 mg-3 mg-10 mg-0.5 mg/mL ear drops,shon pension instill in affected ear 4 drops by otic route 4 times a day for 10 days 12/24 completed Cortispo rin-TC 3.3-3-10 -0.5 mg/mL otic drops,connor spension ;Recorde d Status: Recorded on: 02/18/20 15 1:27PM;D iscontin ued Status: Disconti nued on: 12/25/19 16 1:53PM;U ser: grossert ;Est. Completi on: 03/09/20 15;Indic ation: Otitis externa - (380.10) ;Printed : 02/18/20 15 Not Available Not Available Not Available lisinopri l 40 mg tablet Take 2 tablets every day by oral route. 09/17 completed Not Available Not Available Not Available Lipitor 10 mg tablet po qd 02/16 completed Lipitor 10 mg oral tablet;R ecorded Status: Recorded on: 07/02/20 08 10:05PM; Disconti nued Status: Disconti nued on: 02/17/20 15 3:36PM;U ser: bishopk Not Available Not Available Not Available fluticaso ne propionat e 50 mcg/actua tion nasal spray,shon pension INHALE 1 SPRAY IN EACH NOSTRIL BY INTRANSA L ROUTE 2 TIMES PER DAY FOR 10 DAYS. active Not Available Not Available No t Available finasteri de 5 mg tablet TAKE 1 TABLET BY MOUTH ONCE DAILY 11/11 completed Not Available Not Available Not Available spironola ctone 50 mg tablet TAKE 1 TABLET BY MOUTH ONCE DAILY 11/11 completed Not Available Not Available Not Available amoxicill in 875 mg-potass ium clavulana te 125 mg tablet TAKE ONE (1) TABLET BY ORAL ROUTE EVERY 12 HOURS FOR 10 DAYS active Not Available Not Available No t Available Vitamin oral liquid po prn 02/28 completed Vitamin Oral Liquid;R ecorded Status: Recorded on: 07/02/20 08 10:05PM; Disconti nued Status: Disconti nued on: 02/29/20 11 1:19PM;U ser: bishopk Not Available Not Available Not Available Zithromax 500 mg tablet take 1 tablet (500 mg) by oral route once daily for 5 days 03/03 completed Zithroma x 500 mg oral tablet;P rescribe Status: Prescrib ed on: 02/22/20 16 3:13PM;U ser: grossert ;Est. Completi on: 03/03/20 16;Indic ation: Acute bronchit is, unspecif ied organism - (466.0); Pharmacy Verified : 02/22/20 16 3:13PM Not Available Not Available Not Available Mucinex D Maximum Strength 120 mg-1,200 mg tablet,ex tended release Take 1 tablet every 12 hours by oral route. 2024 active Not Available Not Available Not Avai lable Effient 10 mg tablet take 1 tablet (10 mg) by oral route once daily 02/16 completed Effient 10 mg oral tablet;R ecorded Status: Recorded on: 03/24/20 14 5:05PM;D iscontin ued Status: Disconti nued on: 02/17/20 15 3:36PM;U ser: haym Not Available Not Available Not Available Vitals Date Recorded Body height Body mass index (BMI) Body weight Body temperature Pain severity - 0-10 verbal numeric rating [Score] - Reported Respiratory rate Heart rate Oxygen saturation Oxygen saturation in Arterial blood by Pulse oximetry Systolic And Diastolic Provider Name and Address Organization Details Last Updated DateTime 4 172.72 cm 27.7 kg/m2 72297.5 6 g 97.8 [degF] 0 18 /min 68 /min 98 % 98 % 146/84 mm[Hg] Nalini Moyerk [place] - [facility] 4 10:49:44 Date Recorded Body height Body mass index (BMI) Body weight Body temperature Heart rate Oxygen saturation Oxygen saturation in Arterial blood by Pulse oximetry Respiratory rate Pain severity - 0-10 verbal numeric rating [Score] - Reported Systolic And Diastolic Provider Name and Address Organization Details Last Updated DateTime 5 172.72 cm 28 kg/m2 20660 g 98.2 [degF] 62 /min 98 % 98 % 18 /min 0 136/80 mm[Hg] Chery Levy [facility] 5 11:33:57 Date Recorded Body height Body mass index (BMI) Body weight Body temperature Heart rate Oxygen saturation Oxygen saturation in Arterial blood by Pulse oximetry Respiratory rate Pain severity - 0-10 verbal numeric rating [Score] - Reported Systolic And Diastolic Provider Name and Address Organization Details Last Updated DateTime 2 173.99 cm 25.5 kg/m2 73413.7 g 98.5 [degF] 66 /min 98 % 98 % 18 /min 0 130/78 mm[Hg] Chery Levy [facility] 2 10:51:42 Date Recorded Body height Body mass index (BMI) Body weight Body temperature Respiratory rate Heart rate Oxygen saturation Oxygen saturation in Arterial blood by Pulse oximetry Systolic And Diastolic Provider Name and Address Organization Details Last Updated DateTime 2 173.99 cm 27.1 kg/m2 89496.7 8 g 98.3 [degF] 20 /min 59 /min 99 % 99 % 144/80 mm[Hg] Libertad [place] - [facility] 2 14:35:18 Date Recorded Body height Body mass index (BMI) Body weight Body temperature Heart rate Oxygen saturation Oxygen saturation in Arterial blood by Pulse oximetry Respiratory rate Pain severity - 0-10 verbal numeric rating [Score] - Reported Systolic And Diastolic Provider Name and Address Organization Details Last Updated DateTime 4 172.72 cm 28.4 kg/m2 49786.7 7 g 97.9 [degF] 64 /min 98 % 98 % 18 /min 0 130/60 mm[Hg] Chery Levy [place] - [facility] 4 10:14:56 Social History Question Answer Notes LastModified by Organizat ion Details LastModified Time Tobacco Smoking Status Never Smoker Chery torres [place] - [facility] 11/06/2016 14:25:39 Able To Swim? Yes Information not available 11/06/2016 Do You Have An Advance Directive? Yes Information not available 11/06/2016 Do You Wear A Helmet When Biking? No Information not available 11/06/2016 Are You Blind Or Do You Have Difficulty Seeing? No Information not available 11/06/2016 What Is Your Level Of Caffeine Consumption? Heavy Information not available 11/06/2016 How Much Tobacco Do You Chew? None Information not available 11/06/2016 In The 14 Days Before Symptom Onset, Have You Had Close Contact With A Laboratory-confir med COVID-19 While That Case Was Ill? No Information not available 10/02/2023 In The 14 Days Before Symptom Onset, Have You Had Close Contact With A Person Who Is Under Investigation For COVID-19 While That Person Was Ill? No Information not available 10/02/2023 Have You Been To An Area Known To Be High Risk For COVID-19? No Information not available 10/02/2023 Are You Deaf Or Do You Have Serious Difficulty Hearing? No Information not available 11/06/2016 What Type Of Diet Are You Following? REGULAR Information not available 11/06/2016 Which Illicit Or Recreational Drugs Have You Used? None Information not available 11/06/2016 Have You Processed Blood Or Body Fluids From An Ebola Virus Disease Patient Without Appropriate PPE? No Information not available 10/02/2023 Do You Reside In Or Have You Traveled To An Area Where Ebola Virus Transmission Is Active? No Information not available 10/02/2023 What Is The Highest Grade Or Level Of School You Have Completed Or The Highest Degree You Have Received? [id number] Information not available 05/17/2021 Swimming/diving No Informati on not available 11/06/2016 Have There Been Any Changes To Your Family Or Social Situation? No Information no t available 05/17/2021 What Is The Fluoride Status Of Your Home? Fluoridated Information not available 05/17/2021 Hard Of Hearing Or Deaf In One Or Both Ears? No Information not available 11/06/2016 Have You Recently Or Are You Planning To Travel To An Area With Zika Virus? No Information not available 10/02/2023 Legally Blind In One Or Both Eyes? No Information no t available 11/06/2016 Live Alone Or With Others? With Others Information not available 11/06/2016 What Was The Date Of Your Most Recent Tobacco Screening? 11/11/2024 Information not available 11/11/2024 How Many Children Do You Have? 2 Information not available 11/06/2016 Do You Use Protection During Sex? No Information not available 11/06/2016 Do You Use Protection Against STDs? No Information not available 07/16/2024 What Is Your Relationship Status? Information not available 11/06/2016 Seat Belts Used Routinely Yes Information not available 11/06/2016 Are You Sexually Active? No Information not available 07/16/2024 Smoke Alarm In Home Yes Information not available 11/06/2016 Do You Have Smoke And Carbon Monoxide Detectors In Your Home? Yes Information not available 05/17/2021 Are You Passively Exposed To Smoke? No Information no t available 11/06/2016 How Much Tobacco Do You Smoke? No Information not available 11/06/2016 General Stress Level Low Information not available 11/06/2016 Do You Use Sunscreen Routinely? Yes Information not available 11/06/2016 Has Tobacco Cessation Counseling Been Provided? No Information not available 05/17/2021 Do You Have Difficulty Walking Or Climbing Stairs? No Information not available 11/06/2016 What Contraceptive Method Was Reported At Start Of This Visit? None Information not available 07/16/2024 What Contraceptive Method Was Reported At End Of This Visit? None Information not available 07/16/2024 Do You Want To Talk About Contraception Or Prevention During Your Visit Today? No - This Question Does Not Apply To Me/I Prefer Not To Answer Information not available 07/16/2024 What Is Your Reason For Having No Contraceptive Method At Start Of This Visit? Abstinence Information not available 07/16/2024 What Is Your Reason For Having No Contraceptive Method At End Of This Visit? Abstinence Information not available 07/16/2024 Sex: Male Functional Status Question Answer Note LastModified by Organizat ion Details LastModified Time Do you or have you ever used smokeless tobacco? Never used smokeless tobacco Information not available 04/21/2020 Are you currently employed? No Information not available 11/06/2016 Do you have transportation difficulties? No Information not available 05/17/2021 Are you able to care for yourself independently? Yes Information not available 11/06/2016 Do you have difficulty dressing, bathing, grooming, or toileting? No Information not available 11/06/2016 Do you or have you ever used e-cigarettes or vape? Never used electronic cigarettes Information not available 04/21/2020 What is your exercise level? None Information not available 11/06/2016 Do you use any illicit or recreational drugs? No Information not available 05/17/2021 Do you or have you ever used any other forms of tobacco or nicotine? No Information not available 05/17/2021 What is your level of alcohol consumption? None Information not available 11/06/2016 Are you able to walk independently without assistance or assistive devices? YESWOREST Information not available 11/06/2016 Do you have difficulty doing errands alone? No Information not available 11/06/2016 What is your occupation? [employer] Information not available 11/06/2016 Mental Status Question Answer Note LastModified by Organizat ion Details LastModified Time Do you feel stressed (tense, restless, nervous, or anxious, or unable to sleep at night)? [id number] Information not available 05/17/2021 Do you have difficulty concentrating, remembering or making decisions? No [facility] Information no t available 11/06/2016 Family History Relationship Description Onset Age of this Age Resolved Age Notes LastModified by Organization Details LastModified Time Father Aortic aneurysm ay5 Not available 2016 14:23:49 Mother Neoplasm of ovary Not available 2016 14:24:07 Paternal Uncle Malignant neoplasm of prostate Not available 2016 14:24:58 Medical History Condition Response Pancreatitis N Coronary Artery Disease N Other N Gout N Atrial Fibrillation N congenital heart disease N Blood Diseases N Kidney Stones N Hyperthyroidism N Rheumatoid arthritis N Blood Transfusion N Erectile Dysfunction N amputation N Colonoscopy N Skin Lesions N COPD N Depression N Pneumonia N Incontinence N Murmur N Edema N Alzheimer's Disease N Migraine Headaches N Tobacco Abuse N Anxiety Disorder N Muscle, Joint, or Bone Problems N Hemorrhoids N Obesity N Vision or Eye Problems N Restless Leg Syndrome N Arthritis N Infertility N Polyps N Carpal Tunnel N Mental Disorder N Acid Reflux (GERD) N Cancer N Stroke N Varicosities N Tendonitis N Crohn's Disease N Hypercholesterolemia N Skin Cancer N Fibromyalgia N Headaches N Anal Fissure N Irritable Bowel Syndrome N Kidney Disease N Heart Problems N Ear or Hearing Problems N Hospitalizations N Gallstones N Kidney or Bladder Problems N Goiter N Acne N Skin Problems N Eating Disorder N Downs's Esophagus N Hypertriglyceridemia N MRSA exposure N Constipation N Embolism N Vitamin B12 Deficiency N Deviated Septum N Tuberculosis N AIDS/HIV N Myocardial Infarction N Asthma N Mitral Valve Disorders N Vertigo N Hepatitis N Thyroid Cancer N Neuropathy N Pulmonary Embolism N History of DVT N Herniated Disc N Chronic Ear Infections N Chicken Pox N Autism Spectrum Disorder (ASD) N Von Willebrands Disease N Thrombophilias N Breast Cancer N Hernia N Plantar Fasciitis N Hospital Admission Other Than N Lung Disease N Hypothyroidism N Defects or Inherited Disease N Developmental or Behavioral Disorders N Breast Problem N Difficulty Swallowing N Ovarian Cyst N Anesthesia Complications N Testosterone Deficiency N Meniere's disease N Head Injury/Concussion N Interstitial Cystitis N Congenital Anomalies N Hypoglycemia N Blood clot N Vitamin D Deficiency N Cellulitis N Endometriosis N Fracture N Bladder or Kidney Problems N Liver Disease N Panic Disorder N Schizophrenia N Concussion N Spina Bifida N Allergies/Hayfever N Osteoarthritis N Parkinson's Disease N Disc Protrusion N STI N Esophagitis N Angina N Thyroid Problems N GI Problems N ADD/ADHD N Anemia N Multiple Sclerosis N Abnormal PAP N Lumbago N Mental Illness N Psychiatric Illness N Diabetes N Ovarian Cancer N Bedwetting N Degenerative Disc Disease N Seizures/Epilepsy N Congestive Heart Failure (CHF) N Hyperlipidemia Y Syncope N Insomnia N Eczema N Abuse/Domestic Violence N Attention Deficient Disorder N Diverticulitis N Dementia N Ulcerative colitis N Cerebrovascular Disease N Depression N Guillain-Gifford N Sleep Apnea N Aneurysm N Bronchitis N Heart Disease N Suicidal Ideation N Pre-Eclampsia N Hypertension Y Osteoporosis N Immunizations Vaccine Type Date Status Note Provider Nam e and Address Organization Details Recorded Time influenza, unspecified formulation 2 completed Not Available [facility] 07/09/2016 00:45:12 Past Encounters Encounter ID Performer Location Encounter Start Date Encounter Closed Date Diagnosis/Indication Diagnosis SNOMED-CT Code Diagnosis ICD10 Code Diagnosis IMO Codes Diagnosis Note [id number] [facility] [address] [place] [address] 05/27/2008 00:00:00 [id number] [facility] [address] [place] [address] 07/02/2010 00:00:00 [id number] [facility] [address] [place] [address] 07/05/2010 00:00:00 [id number] [facility] [address] [place] [address] 02/28/2011 00:00:00 [id number] [facility] [address] [place] [address] 2012 00:00:00 [id number] [facility] [address] [place] [address] 12/25/2015 00:00:00 [id number] [facility] [address] [place] [address] 01/05/2016 00:00:00 [id number] [facility] [address] [place] [address] 02/22/2016 00:00:00 [id number] [facility] [address] [place] [address] 2012 00:00:00 [id number] [facility] [address] [place] [address] 05/20/2013 00:00:00 [id number] [facility] [address] [place] [address] 03/24/2014 00:00:00 [id number] [facility] [address] [place] [address] 02/16/2015 00:00:00 [id number] [facility] [address] [place] [address] 02/17/2015 00:00:00 [id number] Alcon Hare MD [address] [place] [address] 11/06/2016 14:06:08 11/06/2016 15:04:15 Traumatic hematoma 374137324 T14.8 Contusion of left shoulder 2239515647 3716266 S40.012A Body mass index 25-29 - overweight 121634580 Z68.27 [id number] Alcon Hare MD [address] [place] [address] 04/11/2017 13:16:12 04/11/2017 14:22:51 New daily persistent headache 8402255126 32071 G44.52 Neck pain 24330830 M54.2 Body mass index 25-29 - overweight 110111201 Z68.26 [id number] Alcon Hare MD [address] [place] [address] 01/02/2018 15:02:31 01/02/2018 15:49:16 Diarrhea 86481561 R19.7 Allergic rhinitis 166354 04 J30.9 Body mass index 25-29 - overweight 855800429 Z68.25 [id number] Alcon Hare MD [address] [place] [address] 01/23/2018 15:50:00 01/23/2018 16:30:02 Essential hypertension 97272351 I10 Neck pain 63791217 M54.2 Coronary arteriosclerosis in robinson artery 2844486106 107 I25.10 Body mass index 25-29 - overweight 073647423 Z68.25 Insomnia 768065033 G47.0 0 [id number] Alcon Hare MD [address] [place] [address] 01/28/2018 14:48:53 01/28/2018 15:22:50 Acute pharyngitis 284811109 J02.9 Body mass index 25-29 - overweight 958384171 Z68.25 [id number] Alcon Hare MD [address] [place] [address] 09/17/2018 13:46:04 09/17/2018 14:57:30 Lightheadedness 894311517 R42 Essential hypertension 47929399 I10 Screening for malignant neoplasm of prostate 620276764 Z12.5 Body mass index 25-29 - overweight 109467249 Z68.25 Insomnia 961913213 G47.0 0 [id number] Alcon Hare MD [address] [place] [address] 04/21/2020 13:22:55 04/21/2020 14:10:53 Ankylosis of joint 400550146 M24.60 Coronary arteriosclerosis in robinson artery 7032135749 107 I25.10 Essential hypertension 47267407 I10 Hyperlipidemia 60360742 E78.5 Altered mental status 41 9692937 R41.82 Syncope and collapse 309 286205 R55 Body mass index 25-29 - overweight 394898156 Z68.25 [id number] Alcon Hare MD [address] [place] [address] 05/17/2021 09:14:27 05/17/2021 10:13:40 Ankylosis of joint 687726372 M24.60 Essential hypertension 48795336 I10 Hyperlipidemia 04997100 E78.5 Fatigue 86524456 R53.83 Chest pain 23459475 R07. 9 resolved Body mass index 25-29 - overweight 671847249 Z68.25 [id number] Alcon Hare MD [address] [place] [address] 06/15/2021 08:59:19 06/15/2021 10:02:42 Benign prostatic hyperplasia without outflow obstruction 549593456 N40.0 controlled Pericardial effusion 373 121389 I31.3 resolved Body mass index 20-24 - normal 192678868 Z68.24 [id number] Alcon Hare MD [address] [place] [address] 03/08/2022 10:40:33 03/08/2022 12:07:52 Essential hypertension 31017722 I10 Hyperlipidemia 06268106 E78.5 Fatigue 28888483 R53.83 Solitary n odule of lung 104505470 R91.1 Body mass index 25-29 - overweight 734474770 Z68.25 Vitamin D deficiency 347 09132 E55.9 Ankylosis of joint 11939 7009 M24.60 Screening for malignant neoplasm of prostate 682337218 Z12.5 [id number] Alea Ellis MD [address] [place] [address] 06/24/2022 14:20:56 06/24/2022 14:40:37 Contact dermatitis 02132231 L25.9 call or RTC if concerns that is not improving or if worsens at any time [id number] Alcon Hare MD [address] [place] [address] 10/02/2023 10:16:33 10/02/2023 11:21:32 Essential hypertension 36388347 I10 Hyperlipidemia 70821253 E78.5 Insomnia 085875605 G47.0 0 Active or passive immunization 511297840 Z23 Body mass index 25-29 - overweight 618738518 Z68.27 [id number] Alcon Hare MD [address] [place] [address] 07/16/2024 09:09:21 07/16/2024 10:54:32 Allergic rhinitis 08601650 J30.9 Body mass index 25-29 - overweight 594819772 Z68.28 [id number] Alcon Hare MD [address] [place] [address] 11/11/2024 10:36:53 11/11/2024 11:55:05 Acute serous otitis media of bilateral ears 4204392900 153170 H65.03 Body mass index 25-29 - overweight 090670584 Z68.28 Health Concerns Section Related Observation LastModified by Organization Detai ls LastModified Time None Recorded Concern Status LastModified by Organization Details LastModified Time None Recorded Advance Directives Directive Y: Payers Insurance Date Sequence Insurance Name Policy Number Policy Dwyer Covered Member ID Dwyer Member ID Guarantor Name 06/05/2025 1 [place] Vesna Jacskon [id number] Vesna Jackson 06/05/2025 [employer] - [place] - [facility] (MEDICARE) Vesna Jackson [id number] Vesna Jackson 11/11/2024 2 [employer] (MEDICARE SUPPLEMENT) Vesna Jackson [id number] Vesna Jackson 11/11/2024 1 [place] Vesna Jackson [id number] Vesna Jackson 11/11/2024 2 [facility] - [employer] Vesna Jackson [id number] Vesna Jackson Notes Date Note Type Note Provider Name and Address Organization Details Recorded Time 03/08/2022 text/html C/O severe fatigue. Falls asleep during day a lot, even eating supper. Has not had labs 1 yr. Has MIMA but can't use CPAP. Also needs CT chest for small lung nodule. Alcon Hare MD [facility] [address], [place], [address], [facility] - [facility] 03/08/2022 11:30:51 06/24/2022 text/html had blood drawn here 5 days ago at the site of a red itchy rash. not painful and he feels fine. Alea Ellis MD [address], [place], [address], [facility] - [facility] 06/24/2022 14:42:12 10/02/2023 text/html ROS as noted in the HPI Vesna presents to the office today for 6 mo f/u.Pt is fasting. Problems are akylosing spondylitis, B12 def, CAD, htn, hyperlipidemia. Feels well. Alcon Hare MD [address], [place], [address], [facility] 10/02/2023 11:08:53 07/16/2024 text/html C/O nasal allergies since spring. Has congestion, clear drainage, watery eyes. Never had before. Alcon Hare MD [address], [place], [address], [facility] 07/16/2024 10:56:39 11/11/2024 text/html C/O bilat ear fullness, decreased hearing, popping. Duration 3 months. Got zyzol from Dr. Ibanez and knocked him out. Alcon Hare MD [address], [place], [address], [facility] 11/11/2024 11:58:17
--- OUTSIDE RECORDS SUMMARY | 2025-07-11 09:19 | XMS_ITS | Clinical Summary ---
Author Organization [facility] Address [address] [place] [address] Care Team Providers Care Welder/Fitter Name Role Phone Alcon Hare MD Primary Care Provider Allergies Active Allergy Reactions Criticality Noted Date [...] (05/24/2021): Added automatically from request for surgery [id number] Pericardial effusion 05/24/2021 Essential hypertension 05/24/2021 Hyperlipidemia [...] Start Date Job End Date [employer] in [place]/ [employer] Not on file Not on file Not [...] VACCINE (3 of 3) 12/09/2023 10/14/2023, 09/14 INFLUENZA VACCINE 04/29/2025 07/04/2023, , 07/18/2021, Additional history exists COVID-19 Vaccine (2 - 2024-2 6 season) 2025 10/03/2021 TDAP/TD VACCINES (2 - Td or Tdap) 03/01/2033 023 COLONOSCOPY Discontinued 03/31/2019 COLORECTAL CANCER SCREENING Discontinued COLOGUARD Discontinued COLON CANCER SCREENING 5 YEA R SIGMOID[address]COPY Dis[address] COLONOGRAPHY Discontinued FECAL OCCULT BLOOD TEST Discontinued FIT Testing (1 year) Discontinued Insurance MEDICARE A & B [facility] [place] [address] Advance Directives * CPR (Attempt to Resuscitate) (Latest Code Status on File) Date Activated Date Inactivated Comments 05/25/2021 7:38 AM 05/30/2021 2:48 PM Question Answer Comments Code Status (Patient has no pulse and is not breathing): CPR (Attempt to Resuscitate) Medical Interventions (Patie nt has pulse or is breathing): Full Level Of Support Discussed With: Patient Care Teams Welder/Fitter Relationship Specialty Start Date End Date Alcon Hare MD [address] [place] [address] [address] [place], [place] [address] PCP - General Family Medicine 08/17/20
--- OUTSIDE RECORDS SUMMARY | 2025-07-11 09:19 | XMS_ITS | Clinical Summary ---
Author Organization [facility] Address [facility] [place] [address] Care Team Providers Care Girls Tennis Coach Name Role Phone Unavailable Primary Care Provider [...]
[2025-07-11 09:26] LABS: Hematocrit 45.8 % (42.0-52.0); Hemoglobin 15.3 g/dL (14.1-18.0); Immature Granulocytes % 1.3 %; Mean Corpuscular HGB Conc 33.4 g/dL (31.8-35.4); Mean Corpuscular Hemoglobin 32.8 pg (27.0-31.2); Mean Corpuscular Volume 98.1 fl (80-94); Nucleated Red Blood Cells % 0 %; Platelet Count 183 K/mm3 (142-424); Red Blood Count 4.67 M/mm3 (4.60-6.20); Red Cell Distribution Width-SD 45.8 fL; White Blood Count 7.6 K/mm3 (4.8-10.8)
--- NOTE | 2025-07-11 09:28 | PC.NURSE ---
0918 - Pacer interrogated @ this time
[2025-07-11 09:31] LABS: Albumin Level 4.2 g/dl (3.5-5.0); Chloride 104 mmol/L (98-107)
[2025-07-11 09:32] LABS: Potassium 4.1 mmoL/L (3.5-5.1); Sodium 140 mmol/L (136-145)
[2025-07-11 09:34] LABS: Alanine Aminotransferase 19 U/L (12-78); Albumin/Globulin Ratio 1.3 (1.1-1.8); Alkaline Phosphatase 98 U/L (38-126); Anion Gap 12.1 mEq/L (5-15); Aspartate Amino Transferase 28 U/L (17-59); Bilirubin,Total 0.5 mg/dl (0.2-1.3); Blood Urea Nitrogen 13 mg/dl (9-20); Carbon Dioxide 28 mmol/L (22.0-30.0); Creatinine Clearance Estimated 70 mL/min (50-200); Creatinine,Serum 0.90 mg/dl (0.66-1.25); Estimated Glomerular Filt Rate 82 ml/min (>60); GFR (African American) 99 ML/MIN (>60); Globulin 3.3 g/dL (1.3-3.2); Total Protein,Serum 7.5 g/dl (6.3-8.2)
[2025-07-11 09:35] LABS: Calcium 9.1 mg/dl (8.4-10.2); Glucose 116 mg/dl (74-100); Magnesium 1.8 mg/dl (1.6-2.3)
[2025-07-11 09:39] LABS: INR 1.00 (0.9-1.1); Prothrombin Time 11.1 seconds (10.1-12.5)
[2025-07-11 09:48] LABS: Troponin I < 0.01 ng/ml (0.00-0.034)
--- NOTE | 2025-07-11 09:56 | PC.NURSE ---
I spoke with Rc, the [employer] pacemaker digital technician. He has not received his report but will call when he does.
--- NOTE | 2025-07-11 10:26 | PC.NURSE ---
1017 - Pacemaker interrogated again @ this time.
[2025-07-11 10:43] LABS: Hepatitis C Ab Qual. W/ RFX NEGATIVE (Negative)
--- NOTE | 2025-07-11 10:48 | PC.NURSE ---
I spoke with Rc, the [place] vascular technician. He states the pt does not have a defibrillator, he has a by ventricular pacemaker. He reports the pacemaker is working appropriately. There have been no arrhythmias.
--- NOTE | 2025-07-11 11:03 | PC.NURSE ---
1058 - Melba w/ Rc Meyer rep. Continuing to have difficulty receiving report from interrogation. Will attempt to troubleshoot and send again
[2025-07-11 11:33] LABS: D-Dimer 0.91 ug/mL (0.0-0.5)
--- NOTE | 2025-07-11 11:37 | CT_ITS ---
FINAL REPORT TECHNIQUE: Axial imaging of the chest is obtained after the administration of contrast. 3-D MIP reformatted images were also obtained and reviewed per PE protocol. This study was performed with techniques to keep radiation doses as low as reasonably achievable (ALARA). Individualized dose reduction techniques using automated exposure control or adjustment of mA and/or kV according to the patient's size were employed. CLINICAL HISTORY: cp ,positive dimer COMPARISON: 05/24/2021 FINDINGS: The pulmonary arteries are well filled. There is no evidence of pulmonary embolus. There is no aortic dissection. Heart size is normal. There is no mediastinal, hilar, or axillary lymphadenopathy. Changes of emphysema are noted. There is evidence of prior granulomatous disease. There is a 5 mm nodule in the posterior aspect of the major fissure best seen on image #45 of series 3, stable since the prior exam. There are a few additional very small nodules noted, which are also stable. The small pericardial effusion noted on the prior CTA of 2020 is significantly improved. No pleural effusion is present. Limited evaluation of the upper abdomen is without acute abnormality. No acute osseous abnormality. IMPRESSION: 1. No evidence of pulmonary embolism or aortic dissection. 2. Small pericardial effusion noted on the prior CT of 2020 is significantly improved. Reviewed, Interpreted and Dictated by Kathleen Chong MD Transcribed by Katelynn Pierre Authenticated and [facility]
--- NOTE | 2025-07-11 11:53 | PC.NURSE ---
Dr Oviedo @ bedside
[2025-07-11] MEDS: IOPAMIDOL-370 (76%);100ML BOTTLE 85 ML IV (12:35)
[2025-07-11] MEDS: SODIUM CHLORIDE 0.9% 10ML SYR (RAD ONLY) 10 ML IV (12:35)
[2025-07-11] MEDS: 0.9 % SODIUM CHLORIDE 50 ML VIAL IV (12:35)
[2025-07-11 12:48] LABS: Troponin I < 0.01 ng/ml (0.00-0.034)
--- NOTE | 2025-07-11 13:13 | PC.NURSE ---
Called [facility] about this pt and asked them to come over per DR Oviedo
--- NOTE | 2025-07-11 13:33 | PC.NURSE ---
speaking to Saida Jane in cardiology. She is going to contact the [employer] rep and . The come bedside to see the pt.
--- NOTE | 2025-07-11 14:23 | PC.NURSE ---
pt called out and is insisting removing his IV and disconnecting from the cardiac tech and vitals monitor. notified who states he will go talk to the pt.
--- NOTE | 2025-07-11 14:26 | PC.NURSE ---
Dr Oviedo speaking w/ pt and @ this time - awaiting cards to see pt in ED
--- NOTE | 2025-07-11 15:37 | EXP.CARD.CON ---
History of Present Illness History of Present Illness Consult date: 07/11/25 Requesting physician: Arthur Oviedo Consult reason: chest pain Chief complaint: Chest pain History of present illness: This is a 79-year-old white gentleman who presented to the emergency department with complaints of pain in his chest. He states that since having his biventricular pacemaker interrogated in cardiology clinic approximately 3 weeks ago he has been feeling zapping/shocking sensations in his chest. He states that this happens 1-5 times a day where it feels like he is being shocked. The patient does not have a defibrillator so the device cannot shocked him. The patient's device has been interrogated and is functioning properly. Chest x-ray shows that all of his leads are in appropriate position. He states that this is not a severe pain but he notices it and notices that something is different. He denies any shortness of breath. He denies any lower extremity edema. He denies any fever, chills, nausea, vomiting, diarrhea, PND orthopnea. [facility] Disclaimer: The information contained in this section may have been updated after the patient was seen, as this information can be updated by other users. Medical History (Updated 07/11/25 @ 15:40 by Saida Jane APRN) Cardiac pacemaker in situ Carotid artery stenosis Coronary artery disease Other chest pain Other forms of angina pectoris Angina, class III Obstructive sleep apnea Hypertensive heart disease Hyperlipemia Chronic kidney disease, stage 2 (mild) Surgical History Status post biventricular pacemaker S/P pericardial window creation Stented coronary artery Social History Smoking Status: Former smoker alcohol intake: never substance use type: denies use current occupational status: retired Travel in the last 8 weeks?: Inside the [place] household members: spouse housing: house current occupational exposures/hazards: No caffeine: No Review of Systems Review of Systems Review of systems:: pertinent systems reviewed and negative unless documented below Constitutional Constitutional: Reports system reviewed and no additional complaints, except as documented Eyes Eyes: Reports system reviewed and no additional complaints, except as documented ENT Ears, Nose, Mouth, and Throat: Reports system reviewed and no additional complaints, except as documented *Cardiovascular Cardiovascular: Reports system reviewed and no additional complaints, except as documented and Reports chest pain *Respiratory Respiratory: Reports system reviewed and no additional complaints, except as documented *Gastrointestinal Gastrointestinal: Reports system reviewed and no additional complaints, except as documented *Genitourinary Genitourinary: Reports system reviewed and no additional complaints, except as documented *Musculoskeletal Musculoskeletal: Reports system reviewed and no additional complaints, except as documented Integumentary/Breasts Skin/Breast: Reports system reviewed and no additional complaints, except as documented *Neurologic Neurologic: Reports system reviewed and no additional complaints, except as documented Psychiatric Psychiatric: Reports system reviewed and no additional complaints, except as documented Endocrine Endocrine: Reports system reviewed and no additional complaints, except as documented Hematologic/Lymphatic Hematologic/Lymphatic: Reports system reviewed and no additional complaints, except as documented Allergic/Immunologic Allergic/Immunologic: Reports system reviewed and no additional complaints, except as documented Exam Data for Last 24 hours Vital signs and Labs for Last 24 Hours: Temp Pulse Resp BP Pulse Ox O2 Del Method 98.2 F 60 16 169/80 H 97 Room Air 07/11/25 14:43 07/11/25 14:43 07/11/25 14:43 07/11/25 14:43 07/11/25 14:30 07/11/25 14:00 Laboratory Results - last 24 hr 07/11/25 09:10: WBC 7.6, RBC 4.67, Hgb 15.3, Hct 45.8, MCV 98.1 H, MCH 32.8 H, MCHC 33.4, RDW 12.7, Plt Count 183, MPV 10.3, Neut % (Auto) 69.8, Lymph % (Auto) 19.2, [place] % (Auto) 7.1, Eos % (Auto) 2.1, Baso % (Auto) 0.5, Neut # (Auto) 5.3, Lymph # (Auto) 1.5, [place] # (Auto) 0.5, Eos # (Auto) 0.2, Baso # (Auto) 0.0, PT 11.1, INR 1.00, D-Dimer 0.91 H, Sodium 140, Potassium 4.1, Chloride 104, Carbon Dioxide 28, Anion Gap 12.1, BUN 13, Creatinine 0.90, Estimated Creat Clear 70, Estimated GFR 82, Est GFR ( Amer) 99, Glucose 116 H, Calcium 9.1, Magnesium 1.8, Total Bilirubin 0.5, AST 28, ALT 19, Alkaline Phosphatase 98, Troponin I < 0.01, Total Protein 7.5 D, Albumin 4.2, Globulin 3.3 H, Albumin/Globulin Ratio 1.3, HCV Ab SAMUEL w/Rflx PCR Qn Negative, HIV Ag/Ab Combo Qual Negative 07/11/25 12:15: Troponin I < 0.01 I & O for Last 24 hours: Intake & Output 07/08/25 07/09/25 07/10/25 07/11/25 23:59 23:59 23:59 23:59 Weight 180 lb Constitutional Constitutional: no acute distress and average body habitus *Routine HEENT Exam Head: Present normocephalic and atraumatic ENT: Present mucous membranes moist *Routine Neck Exam Neck: Present supple, full ROM and normal carotid upstroke; Absent JVD, carotid bruit or lymphadenopathy *Routine Respiratory Exam Respiratory: Present CTA bilaterally, normal respiratory effort, able to speak in complete sentences and symmetric chest movement *Routine Cardiovascular Exam Cardiovascular: Present RRR, Normal S1 and Normal S2; Absent murmur or gallop *Routine Abdominal Exam Abdominal: Present soft and normoactive bowel sounds; Absent tenderness, distended or organomegaly *Routine Extremities Exam Extremities: Present full ROM, pulses intact and normal capillary refill; Absent cyanosis, clubbing or edema *Routine Skin Exam Skin: Present intact and warm; Absent erythema *Routine Neurological Exam Neurological: Present alert, oriented X3 and CN II-XII intact; Absent sensory deficit or motor deficit Routine Psychiatric Exam Psychiatric: Present normal affect Meds Home Medications and Allergies Home Medications ?Medication ?Instructions ?Recorded ?Confirmed ?Type aspirin 81 mg tablet,delayed 81 mg PO DAILY heart health 10/06/17 07/11/25 History release (Adult Low Dose Aspirin) pantoprazole 40 mg tablet,delayed 40 mg PO DAILY GERD 09/19/20 07/11/25 History release finasteride 5 mg tablet 5 mg PO DAILY 10/23/22 07/11/25 History trazodone 50 mg tablet 50 - 150 mg PO HS 04/22/23 07/11/25 History atorvastatin 20 mg tablet 20 mg PO DAILY Cholesterol #90 tabs 10/21/23 07/11/25 Rx lisinopril 40 mg tablet 40 mg PO DAILY PRN Hypertension 04/20/24 07/11/25 History methadone 10 mg tablet 20 mg PO TID PRN WITHDRAWAL 04/20/24 07/11/25 History spironolactone 25 mg tablet 25 mg PO DAILY #90 tabs 04/20/24 07/11/25 Rx fluticasone propionate 50 1 spray intranasal BID 08/16/24 07/11/25 History mcg/actuation nasal spray,suspension tamsulosin 0.4 mg capsule 0.4 mg PO BID 08/16/24 07/11/25 History clopidogrel 75 mg tablet 75 mg PO DAILY 05/26/25 07/11/25 History New Prescriptions to Start Prescriptions: Allergies Allergy/AdvReac Type Severity Reaction Status Date / Time ciprofloxacin (From Cipro) Allergy Rash Verified 07/11/25 09:32 Sulfa (Sulfonamide Allergy Rash Verified 07/11/25 09:32 Antibiotics) Assessment and Plan *Assessment and plan (1) Chest pain: Status: Acute Qualifiers: Chest pain type: other chest pain Qualified Code(s): R07.89 - Other chest pain Category: Medical Code(s): R07.9 - Chest pain, unspecified (2) Status post biventricular pacemaker: Status: Acute Category: Surgical Code(s): Z95.0 - Presence of cardiac pacemaker (3) Third degree AV block: Status: Acute Category: Medical Code(s): I44.2 - Atrioventricular block, complete (4) Coronary artery disease: Status: Chronic Qualifiers: Associated angina: without angina Coronary Disease-Associated Artery/Lesion type: [place] artery [place] vs. transplanted heart: [place] heart Qualified Code(s): I25.10 - Atherosclerotic heart disease of [place] coronary artery without angina pectoris Category: Medical Code(s): I25.10 - Atherosclerotic heart disease of [place] coronary artery without angina pectoris (5) Carotid artery stenosis: Status: Chronic Qualifiers: Laterality: bilateral Qualified Code(s): I65.23 - Occlusion and stenosis of bilateral carotid arteries Category: Medical Code(s): I65.29 - Occlusion and stenosis of unspecified carotid artery (6) Hyperlipemia: Status: Chronic Qualifiers: Hyperlipidemia type: mixed hyperlipidemia Qualified Code(s): E78.2 - Mixed hyperlipidemia Category: Medical Code(s): E78.5 - Hyperlipidemia, unspecified (7) Hypertensive heart disease: Status: Chronic Qualifiers: Heart failure presence: without heart failure Qualified Code(s): I11.9 - Hypertensive heart disease without heart failure Category: Medical Code(s): I11.9 - Hypertensive heart disease without heart failure (8) Chronic kidney disease, stage 2 (mild): Status: Chronic Category: Medical Code(s): N18.2 - Chronic kidney disease, stage 2 (mild) Plan Plan: 1. The patient presented to the emergency department with complaints of pain in his chest. He states that he feels a shocking sensation from his biventricular pacemaker. The patient does not have a shocking coil in this device. Chest x-ray was obtained and all of his leads are in appropriate position. 2. His device was also interrogated today and his device is functioning properly. All of his leads have normal thresholds and he is capturing appropriately with his pacemaker. 3. The patient reports that his symptoms started after having his device interrogated in cardiology clinic by the rep approximately 3 weeks ago. He is most likely having diaphragmatic stimulation. This is not harmful to the patient and will not kill him or harm him. The patient has been reassured of this. 4. The patient will be brought back to cardiology clinic on 07/18/2025 at 10:45 AM to have a repeat interrogation with the [employer] rep to see if we can decrease or resolve the diaphragmatic stimulation. 5. Coronary artery disease is present. He ruled out for an MO. No plans for invasive left cardiac catheterization at this time. 6. His blood pressure is acceptable. 7. His LDL goal is less than 55. 8. No further recommendations at this time from a cardiac standpoint. The patient can be discharged home today from a cardiac standpoint with follow-up in cardiology clinic on 07/18/2025 at 10:45 AM for optimization of his biventricular pacemaker. The patient verbalized understanding. Thank you for the opportunity to help participate in the care of this patient. All recommendations and orders are per Dr. Sebastian.
== END 2025-07-11 14:50 | disposition home or self-care (01) ==
PROVIDERS: Emergency Provider Emergency Medicine; PCP Family Medicine
DX: R07.89 Other chest pain (principal); T82.9XXA Unspecified complication of cardiac and vascular prosthetic device, implant and graft, initial encounter; I12.9 Hypertensive chronic kidney disease with stage 1 through stage 4 chronic kidney disease, or unspecified chronic kidney disease; N18.2 Chronic kidney disease, stage 2 (mild); E78.5 Hyperlipidemia, unspecified; Z95.0 Presence of cardiac pacemaker; Z86.79 Personal history of other diseases of the circulatory system; Z87.891 Personal history of nicotine dependence
CPT/HCPCS: 71045; 71275; 80053; 83735; 84484; 85025; 85378; 85610; 86803; 87389; 93005; 99285; Q9967

== ENCOUNTER 2025-09-05 12:33 | Outpatient (CLI) | payer MEDICARE, OTHER, SELFPAY ==
[2025-09-05 12:55] LABS: Hematocrit 44.1 % (42.0-52.0); Hemoglobin 14.9 g/dL (14.1-18.0); Immature Granulocytes % 1.3 %; Mean Corpuscular HGB Conc 33.8 g/dL (31.8-35.4); Mean Corpuscular Hemoglobin 32.9 pg (27.0-31.2); Mean Corpuscular Volume 97.4 fl (80-94); Nucleated Red Blood Cells % 0 %; Platelet Count 231 K/mm3 (142-424); Red Blood Count 4.53 M/mm3 (4.60-6.20); Red Cell Distribution Width-SD 45.9 fL; White Blood Count 10.5 K/mm3 (4.8-10.8)
[2025-09-05 13:37] LABS: Anion Gap 13.7 mEq/L (5-15); Blood Urea Nitrogen 16 mg/dl (9-20); Carbon Dioxide 29 mmol/L (22.0-30.0); Chloride 106 mmol/L (98-107); Creatinine,Serum 0.90 mg/dl (0.66-1.25); Potassium 4.7 mmoL/L (3.5-5.1); Sodium 144 mmol/L (136-145)
[2025-09-05 13:38] LABS: Alanine Aminotransferase 21 U/L (12-78); Albumin Level 4.3 g/dl (3.5-5.0); Alkaline Phosphatase 93 U/L (38-126); Aspartate Amino Transferase 27 U/L (17-59); Bilirubin,Direct 0.1 mg/dl (0.0-0.4); Bilirubin,Indirect 0.7 mg/dL (0.0-0.9); Bilirubin,Total 0.8 mg/dl (0.2-1.3); Bilirubin,Unconjugated 0.6 mg/dL (0.0-1.1); Calcium 9.9 mg/dl (8.4-10.2); Cholesterol 196 mg/dl (140-200); Estimated Glomerular Filt Rate 82 ml/min (>60); GFR (African American) 99 ML/MIN (>60); Glucose 90 mg/dl (74-100); HDL Cholesterol 41 mg/dl (40-60); Magnesium 1.9 mg/dl (1.6-2.3); Total Protein,Serum 7.1 g/dl (6.3-8.2); Triglycerides 195 mg/dl (30-150)
[2025-09-05 13:58] LABS: Free T4 (Free Thyroxine) 0.86 ng/dl (0.78-2.19)
[2025-09-05 14:12] LABS: Thyroid Stimulating Hormone 2.97 uIU/mL (0.465-4.68)
== END 2025-09-05 23:59 | disposition home or self-care (01) ==
PROVIDERS: PCP Family Medicine; Visit Provider Physician Assistant
DX: I25.10 Atherosclerotic heart disease of native coronary artery without angina pectoris (principal); E78.2 Mixed hyperlipidemia; E03.8 Other specified hypothyroidism; I11.9 Hypertensive heart disease without heart failure
CPT/HCPCS: 36415; 80048; 80061; 80076; 83735; 84439; 84443; 85025